=== PATIENT | male | born 1940 | race Caucasian/White ===

== ENCOUNTER 2017-02-24 07:35 | Day surgery (SDC) | payer OTHER, MEDICARE ==
--- NOTE | 2017-02-22 08:02 | HP ---
DATE OF ADMISSION: 02/24/2017 HISTORY OF PRESENT ILLNESS: This is the first orthopedic outpatient admission for surgery for this 76-year- old male, who has a chronic bursitis of the right elbow and pain, and spur formation of the olecranon. The patient was seen through the orthopedic clinic on 02/21/2017 evaluated, found to have swelling and problems, and the patient is being scheduled now for a right elbow bursectomy and removal of bone spurs. The procedure has been outlined to him. He understands the risks and complications involved with it and has consented to the surgery. The patient will need a preoperative medical evaluation prior to surgery. ALLERGIES: No known drug allergies. CURRENT MEDICATIONS: The patient currently is on multiple medications and they include hydrocortisone 10 mg, gemfibrozil, amlodipine, K-Dur 20, hydrochlorothiazide, losartan, Synthroid, low-dose aspirin, Bystolic, ranitidine, Crestor, Nitrostat, lisinopril, vitamin D3, CoQ10, tramadol for pain, and Tylenol No.3. PAST MEDICAL HISTORY: The patient has chronic heart problems. He has had a history of high blood pressure. He also has a deficiency of the pituitary gland. 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 Bleeding history is negative. Blood clot history is negative. PAST SURGICAL HISTORY: Positive, he has had previous upper arm surgery with local anesthesia, no complications. He also notes other surgical procedures and has had no anesthesia complications. SOCIAL HISTORY: Tobacco is a nonsmoker. Alcohol nondrinker. PHYSICAL EXAMINATION: GENERAL: Today, reveals a well-developed, well-nourished 76-year-old male, in moderate distress. HEENT: Normocephalic. NECK: Supple. CHEST: Clear. COR: Regular rate. ABDOMEN: Soft. : Intact. EXTREMITIES: Examination of right elbow reveals a significant swelling of the right elbow bursa with positive bone spur palpation on the olecranon area. ASSESSMENT: Chronic bursitis right elbow with spur formation. PLAN: For the patient to undergo excision of right elbow olecranon bursa. MMODAL /[id number]
[~2017-02-24 07:35] MED LIST: Lactated Ringers 1,000 ML IV SCH; Lidocaine 1%/Sod Bicarbonate in NS 8.4% 1 ML Syringe IV PRN; Propofol 200 MG/20 ML SDV ONE; Sodium Chloride 0.9% 10 ML Syringe FLUSH PRN; fentaNYL 100 MCG/2 ML SDV ONE
[2017-02-24] MEDS ORDERED: Iodine/Sodium Iodide 2% Tincture 30 ML Bottle ONE (08:12)
--- NOTE | 2017-02-24 08:16 | PCM.PREANE ---
Preanesthetic Assessment - Procedure Proposed Procedure: Excision of right olecranon bursa and AIP - Anesthesia/Transfusion/Family Hx Anesthesia History: Prior Anesthesia Without Reaction Type of Anesthesia Reaction: Unknown Other Type of Anesthesia Reaction Comment: muscle irritability Family History of Anesthesia Reaction: No Transfusion History: Prior Transfusion Without Reaction Intubation History: Unknown - Review of Systems General: No Symptoms Pulmonary: No Symptoms Cardiovascular: No Symptoms Gastrointestinal: No symptoms Neurological: No Symptoms Other: Reports: None, Thyroid Problems (pt states he has no glandular functions due to his missing pituitary gland) - Physical Assessment NPO Status Date: 02/23/17 NPO Status Time: 21:00 Pulse: 62 O2 Sat by Pulse Oximetry: 96 Respiratory Rate: 18 Blood Pressure: 154/80 Temperature: 36.5 C Height: 1.78 m Weight: 105.143 kg ASA Class: 3 Mental Status: Alert & Oriented x3 Airway Class: Mallampati = 1 Dentition: Reports: Normal Dentition Thyro-Mental Finger Breadths: 3 Mouth Opening Finger Breadths: 3 ROM/Head Extension: Full Lungs: Clear to auscultation, Normal respiratory effort Cardiovascular: Regular Rate, Regular Rhythm - Allergies Allergies/Adverse Reactions: Allergies Allergy/AdvReac Type Severity Reaction Status Date / Time clopidogrel bisulfate AdvReac GI Verified 02/24/17 08:33 [From Plavix] bleeding if on for a long period of time zolpidem tartrate AdvReac "mess me Verified 02/24/17 08:33 [From Ambien] up mentally" - Blood Blood Available: No Product(s) Available: None - Anesthesia Plan Pre-Op Medication Ordered: None - Acknowledgements Anesthesia Type Planned: General Anesthesia (An extensive conversation with the patient was held and he wished for a general anesthetic with local infiltration at the end of the procedure. He was advised from devyn Ingram at [facility] not not have a peripheral nerve block to his left arm for his bursa procedure. He was advised that given his heart/vasuclar history that he is at higher risk for cardiovascular complication with a general anesthetic. Patient/ spouse understands and still wishe to procede with the procedure. ) Pt an Appropriate Candidate for the Planned Anesthesia: Yes Alternatives and Risks of Anesthesia Discussed w Pt/Guardian: Yes Pt/Guardian Understands and Agrees with Anesthesia Plan: Yes PreAnesthesia Questionnaire HEENT History: Reports: Impaired Vision Other HEENT History: tinnitus, wears glasses Cardiovascular History: Reports: CAD, Heart Failure, High Cholesterol, Hypertension, [place], PVD, Stents (renal), Other (See Below) Other Cardiovascular History: [place] x 2, Left carotidendartectomy, Right carotid completely blocked Respiratory History: Reports: None Other Gastrointestinal History: "stomach ulcers from too much aspirin or plavix " Other Genitourinary History: Prostate cancer, renal stenosis - elevated Bun/Cr , 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 Hematologic History: Reports: None Immunologic History: Reports: None Oncologic (Cancer) History: Reports: Prostate Other Oncologic History: pituitary Other Dermatologic History: thin skin with frequent skin tears - Past Surgical History HEENT Surgical History: Reports: Cataract Surgery, Naso-Sinus Surgery Other HEENT Surgeries/Procedures: Bilateral eye lens implant Cardiovascular Surgical History: Reports: Carotid Endarterectomy, Coronary Artery Bypass Other Cardiovascular Surgeries/Procedures: 4 vessel bypass--patient states sternal wires have since been removed GI Surgical History: Reports: Colonoscopy Male Surgical History: Reports: Prostate Biopsy Other Male Surgeries/Procedures: Rt kidney renal stent Endocrine Surgical History: Reports: Thyroidectomy Other Endocrine Surgeries/Procedures: Removal of the pituitary Neurological Surgical History: Reports: Laminectomy Other Neurological Surgeries/Procedures: X 3 Other Musculoskeletal Surgeries/Procedures:: Bilateral ankle and elbow surgery, laminectomy x 3, upper knuckle of right thumb lost in construction accident - SUBSTANCE USE Smoking Status *Q: Former Smoker Tobacco Use Within Last Twelve Months: No Second Hand Smoke Exposure: No Recreational Drug Use History: No - HOME MEDS Home Medications: Home Meds Acetaminophen/Codeine [Tylenol with Codeine No.3 300MG/30MG] 1 tab PO BID PRN [History] Cholecalciferol (Vitamin D3) [Vitamin D3] 1,000 unit PO DAILY 08/15/15 [History] Gemfibrozil [Lopid] 300 mg PO BIDAC 08/15/15 [History] Hydrocortisone [Cortef] 20 mg PO BID 08/15/15 [History] Isosorbide Mononitrate [Isosorbide Mononitrate ER] 30 mg PO BID 08/15/15 [ History] Levothyroxine Sodium [Synthroid] 175 mcg PO ACBREAKFAST 08/15/15 [History] Magnesium Oxide 0.5 tab PO QPM 08/15/15 [History] Nitroglycerin [Nitrostat] 1 tab SL ASDIRECTED PRN 08/15/15 [History] Rosuvastatin [Crestor] 40 mg PO DAILY 08/15/15 [History] Ubidecarenone [Co Q-10] 100 mg PO DAILY 08/15/15 [History] Amoxicillin 2,000 mg PO ASDIRECTED PRN 02/23/17 [History] Aspirin [Halfprin] 81 mg PO DAILY 02/23/17 [History] Lisinopril 5 mg PO DAILY 02/23/17 [History] Losartan/Hydrochlorothiazide [Losartan-HCTZ 50-12.5 MG] 0.5 tab PO DAILY [History] Potassium Chloride [K-Tab ER] 10 meq PO DAILY 02/23/17 [History] Vitamin E 400 unit PO DAILY 02/23/17 [History] amLODIPine/atorvaSTATin [Amlodipine-Atorvast 10-10 mg] 0.5 tab PO DAILY [History] traMADol [Ultram] 50 mg PO Q12HR PRN 02/23/17 [History] Nebivolol [Bystolic] 0.5 mg PO DAILY 02/24/17 [History] Omeprazole 20 mg PO DAILY 02/24/17 [History] - CURRENT (IN HOUSE) MEDS Current Meds: Current Medications Lactated Ringer's (Ringers, Lactated) 1,000 mls @ 125 mls/hr IV ASDIRECTED ANUP Lidocaine/Sodium Bicarbonate (Buffered Lidocaine 1% In Ns 8.4%) 0.25 ml IV ONETIME PRN PRN Reason: Prior to IV Start Sodium Chloride (Saline Flush) 10 ml FLUSH ASDIRECTED PRN PRN Reason: Keep Vein Open Discontinued Medications Fentanyl (Sublimaze) Confirm Administered Dose 100 mcg .ROUTE .STK-MED ONE Stop: 02/24/17 06:49 Propofol (Diprivan 20 Ml) Confirm Administered Dose 200 mg .ROUTE .STK-MED ONE Stop: 02/24/17 06:48
[2017-02-24] MEDS ORDERED: Lidocaine 1% 4 ML ONE (08:26)
[2017-02-24] MEDS ORDERED: fentaNYL 250 MCG/5 ML SDV ONE (08:26)
[2017-02-24] MEDS ORDERED: Propofol 200 MG/20 ML SDV ONE (08:26)
[2017-02-24] MEDS ORDERED: Ondansetron 4 MG/2 ML SDV ONE (08:26)
[2017-02-24] MEDS ORDERED: Rocuronium 50 MG/5 ML Vial ONE (08:26)
[2017-02-24] MEDS ORDERED: Hydrocortisone Sodium Succinate 100 MG/2 ML SDV ONE (08:54)
[2017-02-24] MEDS ORDERED: Ketorolac 15 MG/ML SDV IVPUSH PRN (08:59)
[2017-02-24] MEDS ORDERED: Acetaminophen/Codeine 300-30 MG Tab PO PRN (08:59)
[2017-02-24] MEDS ORDERED: ePHEDrine/Normal Saline 25 MG/5 ML Syringe ONE ×2 (09:16→10:51)
[2017-02-24] MEDS ORDERED: Ondansetron 4 MG/2 ML SDV IVPUSH PRN (11:04)
[2017-02-24] MEDS ORDERED: diphenhydrAMINE 50 MG/ML SDV IVPUSH PRN (11:04)
[2017-02-24] MEDS ORDERED: fentaNYL 100 MCG/2 ML SDV IVPUSH PRN (11:04)
--- NOTE | 2017-02-24 11:07 | PCM.POSTAN ---
POST ANESTHESIA ASSESSMENT - MENTAL STATUS Mental Status: alert, oriented - VITAL SIGNS Pulse Rate: 68 SaO2: 93 Resp Rate: 14 Blood Pressure: 128/56 Temperature: 36.9 C - RESPIRATORY Respiratory Status: respiratory rate WNL, airway patent, O2 saturation stable - CARDIOVASCULAR CV Status: pulse rate WNL, blood pressure stable - GASTROINTESTINAL GI Status: no symptoms - PAIN Pain Score: 0 - POST OP HYDRATION Hydration Status: adequate & stable
[2017-02-24] MEDS ORDERED: Meperidine PF 50 MG/ML Syringe IVPUSH PRN (12:00)
--- NOTE | 2017-02-24 12:51 | PCM48HPAN ---
Post Anesthesia Note - EVALUATION WITHIN 48HRS OF ANESTHETIC Vital Signs in Normal Range: Yes Patient Participated in Evaluation: Yes Respiratory Function Stable: Yes Airway Patent: Yes Cardiovascular Function Stable: Yes Hydration Status Stable: Yes Pain Control Satisfactory: Yes Nausea and Vomiting Control Satisfactory: Yes Mental Status Recovered: Yes
[2017-02-24 13:01] VITALS: BP 118/58
--- NOTE | 2017-02-25 07:23 | OR ---
DATE OF OPERATION: 02/24/2017 SURGEON: Az Leong MD PREOPERATIVE DIAGNOSIS: Right elbow chronic bursitis with loose bone fragments. POSTOPERATIVE DIAGNOSIS: Right elbow chronic bursitis with loose bone fragments with olecranon exostosis formation. ANESTHESIA: General. OPERATION PERFORMED: 1. Excision of chronic bursa formation, right elbow olecranon. 2. Removal of exostosis formation, right olecranon. DESCRIPTION OF PROCEDURE: The patient was taken to the operative room in supine position. He was placed under general anesthesia. The right arm and elbow were then prepped and draped by standard technique and after prepping and draping, the operation proceeded with a midline incision being placed over the central portion of the olecranon extending distally and proximally. The bursal swelling and fluid was to the size of approximately a baseball type size. Once the incision was made, the fluid did come through the incisional area and was decompressed from the bursa itself. Once the fluid was out, the operation proceeded with sharp dissection of the bursa from the subcutaneous tissues all around and then down to the fascial tissues and off the olecranon process area. Once the bursectomy was completed, palpation of the olecranon found ulnarly type exostosis formation over the olecranon area. Using an osteotome, approximately an 8-inch to a 0.25 Inch of bone was removed to smooth the area. This was palpated and again was re- smoothed. There was one loose bone fragment off to the side that was a little deeper in the soft tissues to the medial side of the olecranon, which was excised. Once the palpation found a nice smooth olecranon area, operation proceeded with closure of the space with 3-0 Vicryl and then the skin was then closed with interrupted 3-0 Prolene and vertical mattress sutures. The wound closed very nicely. The operation proceeded with a very bulky type dressing be applied to the olecranon area and then a long arm splint was applied. The patient tolerated the procedure well. He left the operating room in stable condition to his room for recovery. ESTIMATED BLOOD LOSS: MMODAL /[id number]
== END 2017-02-24 12:35 | disposition home or self-care (01) ==
LOC: JD.SDS 07:35
PROVIDERS: ATTEND Specialist
DX: M70.31 Other bursitis of elbow, right elbow (principal); M77.9 Enthesopathy, unspecified; I73.9 Peripheral vascular disease, unspecified; I10 Essential (primary) hypertension; E78.5 Hyperlipidemia, unspecified; I25.10 Atherosclerotic heart disease of native coronary artery without angina pectoris; E78.00 Pure hypercholesterolemia, unspecified; E23.0 Hypopituitarism; I25.2 Old myocardial infarction; I50.9 Heart failure, unspecified; I11.0 Hypertensive heart disease with heart failure; K25.9 Gastric ulcer, unspecified as acute or chronic, without hemorrhage or perforation; Z79.899 Other long term (current) drug therapy; Z79.82 Long term (current) use of aspirin; Z86.69 Personal history of other diseases of the nervous system and sense organs; Z85.46 Personal history of malignant neoplasm of prostate; Z95.1 Presence of aortocoronary bypass graft; Z98.890 Other specified postprocedural states
CPT/HCPCS: 24105; A9270; J1720; J1885; J2405; J3010; J7050; J7120; 01710; J2704

== ENCOUNTER 2019-07-16 09:05 | Inpatient (IN) | payer OTHER, MEDICARE ==
[~2019-07-16 09:05] MED LIST changes: +Acetaminophen 325 MG Tab PO SCH; +Lactated Ringers 0 ML ONE; +Lidocaine 1%/Sod Bicarbonate in NS 8.4% 1 ML Syringe IDERM PRN; -Lidocaine 1%/Sod Bicarbonate in NS 8.4% 1 ML Syringe IV PRN; +Midazolam 1 MG/ML 2 ML SDV ONE; +Ondansetron 4 MG/2 ML SDV ONE; +Pregabalin 25 MG Cap PO SCH; +Ropivacaine 0.5% 5 MG/ML 30 ML SDV ONE; +oxyCODONE ER 10 MG TAB.ER PO SCH
[2019-07-16] MEDS ORDERED: Midazolam 1 MG/ML 2 ML SDV ONE ×2 (10:18→10:59)
[2019-07-16] MEDS ORDERED: Propofol 200 MG/20 ML SDV ONE (10:18)
[2019-07-16] MEDS ORDERED: Hydrocortisone Sodium Succinate 100 MG/2 ML SDV ONE (10:22)
[2019-07-16] MEDS ORDERED: ceFAZolin 1 GM Vial ONE ×2 (10:37→13:13)
[2019-07-16] MEDS ORDERED: Phenylephrine/Normal Saline 100 MCG/ML 10 ML Syringe ONE (10:46)
[2019-07-16] MEDS ORDERED: Ketamine 500 mg/10 ML MDV ONE (10:53)
[2019-07-16] MEDS: ceFAZolin 1 GM Vial ONE ×2 (11:01→11:31)
[2019-07-16] MEDS ORDERED: ePHEDrine/Normal Saline 25 MG/5 ML Syringe ONE (11:17)
[2019-07-16] MEDS ORDERED: Sodium Chloride 0.9% 100 ML ONE (11:17)
[2019-07-16] MEDS ORDERED: Phenylephrine 1% 10 MG/ML SDV ONE (11:17)
--- NOTE | 2019-07-16 11:23 | PCM.PREANE ---
Preanesthetic Assessment - Anesthesia/Transfusion/Family Hx Anesthesia History: Prior Anesthesia Without Reaction Other Type of Anesthesia Reaction Comment: muscle irritability Family History of Anesthesia Reaction: No Transfusion History: Prior Transfusion Without Reaction Intubation History: Unknown - Review of Systems General: No Symptoms Pulmonary: No Symptoms Cardiovascular: Dyspnea on Exertion (>4 MET capacity, SOB with walking up hill about 100 yards. ) Gastrointestinal: No Symptoms Neurological: No Symptoms - Physical Assessment NPO Status Date: 07/15/19 NPO Status Time: 19:00 Vital Signs: Last Vital Signs Temp 36.1 C 07/16/19 09:20 Pulse 73 07/16/19 09:20 Resp 20 07/16/19 09:20 BP 141/88 H 07/16/19 09:20 Pulse Ox 94 L 07/16/19 09:20 Height: 1.75 m Weight: 89.811 kg ASA Class: 3 Mental Status: Alert & Oriented x3 Airway Class: Mallampati = 1 Dentition: Reports: Broken Tooth/Teeth, Missing Tooth/Teeth Thyro-Mental Finger Breadths: 3 Mouth Opening Finger Breadths: 3 ROM/Head Extension: Full Lungs: Clear to Auscultation, Normal Respiratory Effort, Decreased Breath Sounds Cardiovascular: Regular Rate, Regular Rhythm - Lab Values: Laboratory Last Values MRSA (PCR) Negative 07/09/19 14:45 - Allergies Allergies/Adverse Reactions: Allergies Allergy/AdvReac Type Severity Reaction Status Date / Time atorvastatin Allergy intolerance Verified 07/15/19 18:06 Iodinated Contrast Media Allergy Other Verified 07/15/19 18:06 methylprednisolone Allergy Other Verified 07/15/19 18:06 pravastatin Allergy intolderanc Verified 07/15/19 18:06 e aspirin AdvReac gi bleed Verified 07/16/19 08:23 clopidogrel bisulfate AdvReac GI Verified 07/15/19 18:05 [From Plavix] bleeding if on for a long period of time warfarin [From Coumadin] AdvReac GI bleed Verified 07/16/19 08:23 zolpidem tartrate AdvReac "mess me Verified 07/15/19 18:05 [From Ambien] up mentally" - Acknowledgements Anesthesia Type Planned: Spinal Pt an Appropriate Candidate for the Planned Anesthesia: Yes Alternatives and Risks of Anesthesia Discussed w Pt/Guardian: Yes Pt/Guardian Understands and Agrees with Anesthesia Plan: Yes Additional Comments: Mr. Perez has chronic steroid use related to the removal of his pituitary gland in 1988. He manages his Cushings with PO cortef. He has an allergy to methylprednisone documented. He has received Solu-Cortef for surgery in the past and has done fine with surgery. PreAnesthesia Questionnaire HEENT History: Reports: Impaired Vision Other HEENT History: tinnitus, wears glasses Cardiovascular History: Reports: CAD, Heart Failure, High Cholesterol, Hypertension, [place], PVD, SOB on Exertion, Stents, Other (See Below) Other Cardiovascular History: [place] x 2, Left carotidendartectomy, Right carotid completely blocked Respiratory History: Reports: None Gastrointestinal History: Reports: Colon Polyp, GERD, GI Bleed Other Gastrointestinal History: frank's esophagus, GI ulcers Genitourinary History: Reports: Renal Disease Other Genitourinary History: Prostate cancer, renal stenosis - elevated BUN/CRE , CKD III, renal artery stenosis with stent placement, cystoscopy 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 Musculoskeletal History: Reports: Osteoarthritis Other Musculoskeletal History: Left knee pain, right knee pain, bilateral shoulder pain - multiple back problems with lami X 2 Neurological History: Reports: None Psychiatric History: Reports: Depression Other Endocrine/Metabolic History: panhypopituitarism, 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, 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, cushings disease, pituatary adenoma Hematologic History: Reports: None Immunologic History: Reports: None Oncologic (Cancer) History: Reports: Prostate Other Oncologic History: pituitary Other Dermatologic History: thin skin with frequent skin tears, excision of lipoma, actinic keratosis - Past Surgical History HEENT Surgical History: Reports: Cataract Surgery, Naso-Sinus Surgery Other HEENT Surgeries/Procedures: Bilateral eye lens implant Cardiovascular Surgical History: Reports: Carotid Endarterectomy, Coronary Artery Bypass Other Cardiovascular Surgeries/Procedures: 4 vessel bypass--patient states sternal wires have since been removed Respiratory Surgical History: Reports: None GI Surgical History: Reports: Colonoscopy, EGD, Hernia Repair/Other Male Surgical History: Reports: Prostate Biopsy Other Male Surgeries/Procedures: Rt kidney renal stent Endocrine Surgical History: Reports: Pituitary Tumor Resection, Thyroidectomy Other Endocrine Surgeries/Procedures: Removal of the pituitary Neurological Surgical History: Reports: Laminectomy Other Neurological Surgeries/Procedures: L2L3 lumbar discectomy Other Musculoskeletal Surgeries/Procedures:: Bilateral ankle and elbow surgery, laminectomy x 3, upper knuckle of right thumb lost in construction accident, foot surgery, left knee bursectomy, deltoid tumor removal Oncologic Surgical History: Reports: None Dermatological Surgical History: Reports: None - SUBSTANCE USE Smoking Status *Q: Never Smoker Second Hand Smoke Exposure: No Recreational Drug Use History: No - HOME MEDS Home Medications: Home Meds Gemfibrozil [Lopid] 300 mg PO BID 08/15/15 [History] Isosorbide Mononitrate [Isosorbide Mononitrate ER] 30 mg PO BID 08/15/15 [ History] Levothyroxine Sodium [Synthroid] 175 mcg PO ACBREAKFAST 08/15/15 [History] Nitroglycerin [Nitrostat] 1 tab SL ASDIRECTED PRN 08/15/15 [History] Rosuvastatin [Crestor] 40 mg PO BEDTIME 08/15/15 [History] Ubidecarenone [Co Q-10] 100 mg PO DAILY 08/15/15 [History] Amoxicillin 2,000 mg PO ASDIRECTED PRN 02/23/17 [History] Aspirin [Halfprin] 81 mg PO DAILY 02/23/17 [History] Omeprazole 40 mg PO BID 02/24/17 [History] Acetaminophen with Codeine [Tylenol with Codeine #3 Tablet] 1 - 2 tab PO Q4H PRN 07/15/19 [History] Ezetimibe [Zetia] 10 mg PO BEDTIME 07/15/19 [History] Hydrocortisone [Cortef] 10 mg PO BEDTIME PRN 07/15/19 [History] Lisinopril 5 mg PO DAILY 07/15/19 [History] amLODIPine [Norvasc] 5 mg PO DAILY 07/15/19 [History] Cholecalciferol (Vitamin D3) [Vitamin D3] 5,000 unit PO DAILY 07/16/19 [History] Hydrocortisone [Cortef] 20 mg PO 1430 07/16/19 [History] Hydrocortisone [Cortef] 20 mg PO QAM 07/16/19 [History] Iron 65 mg PO BEDTIME 07/16/19 [History] Magnesium 250 mg PO BEDTIME 07/16/19 [History] Ranitidine [Zantac] 150 mg PO BID 07/16/19 [History] hydroCHLOROthiazide [Hydrochlorothiazide] 25 mg PO BEDTIME 07/16/19 [History] - CURRENT (IN HOUSE) MEDS Current Meds: Current Medications Acetaminophen (Tylenol) 975 mg PO ONETIME [facility] Stop: 07/16/19 12:00 Last Admin: 07/16/19 09:42 Dose: 975 mg Acetaminophen/Codeine Phosphate (Tylenol With Codeine No.3 300mg/30mg) 1 - 2 tab PO Q4H PRN PRN Reason: Pain Bisacodyl (Dulcolax) 5 mg PO DAILY PRN PRN Reason: Constipation Morphine Sulfate 8 mg/Epinephrine HCl 0.3 mg/Cefuroxime Sodium 750 mg/Ketorolac Tromethamine 30 mg/Sodium Chloride 27.9 ml 0 mg .XX ONETIME ONE Stop: 07/16/19 11:31 Cyclobenzaprine HCl (Flexeril) 5 mg PO BID PRN PRN Reason: Spasms Docusate Sodium (Colace) 100 mg PO BID ANUP Famotidine (Pepcid) 20 mg PO Q12H [facility] Lactated Ringer's (Ringers, Lactated) 1,000 mls @ 125 mls/hr IV ASDIRECTED [facility] Stop: 07/16/19 23:00 Last Admin: 07/16/19 09:35 Dose: 125 mls/hr Cefazolin Sodium/Dextrose 2 gm (/ Premix) 50 mls @ 100 mls/hr IV Q8H [facility] Stop: 07/16/19 23:59 Ketorolac Tromethamine (Toradol) 15 mg IVPUSH Q6H PRN PRN Reason: Pain Lidocaine/Sodium Bicarbonate (Buffered Lidocaine 1% In Ns 8.4%) 0.25 ml IDERM ONETIME PRN PRN Reason: Prior to IV Start Stop: 07/16/19 18:00 Last Admin: 07/16/19 09:35 Dose: 0.25 ml Magnesium Hydroxide (Milk Of Magnesia) 30 ml PO BID PRN PRN Reason: Constipation Morphine Sulfate (Morphine) 2 mg IVPUSH Q2H PRN PRN Reason: Breakthrough Pain Naloxone HCl (Narcan) 0.1 mg IVPUSH Q5M PRN PRN Reason: Oversedation Ondansetron HCl (Zofran) 4 mg IVPUSH Q6H PRN PRN Reason: Nausea/Vomiting Oxycodone HCl (Oxycontin) 10 mg PO ONETIME [facility] Stop: 07/16/19 12:00 Last Admin: 07/16/19 09:42 Dose: 10 mg Pregabalin (Lyrica) 50 mg PO ONETIME [facility] Stop: 07/16/19 12:00 Last Admin: 07/16/19 09:42 Dose: 50 mg Rivaroxaban (Xarelto) 10 mg PO DAILY [facility] Senna (Senna) 8.6 mg PO BID PRN PRN Reason: Constipation Sodium Chloride (Saline Flush) 10 ml FLUSH ASDIRECTED PRN PRN Reason: Keep Vein Open Stop: 07/16/19 18:00 Discontinued Medications Cefazolin Sodium (Ancef) Confirm Administered Dose 2 gm .ROUTE .STK-MED ONE Stop: 07/16/19 08:40 Last Admin: 07/16/19 11:01 Dose: 2 gm Cefazolin Sodium (Ancef) Confirm Administered Dose 2 gm .ROUTE .STK-MED ONE Stop: 07/16/19 10:38 Fentanyl (Sublimaze) Confirm Administered Dose 100 mcg .ROUTE .STK-MED ONE Stop: 07/16/19 08:40 Hydrocortisone Sodium Succinate (Solu-Cortef) Confirm Administered Dose 100 mg .ROUTE .STK-MED ONE Stop: 07/16/19 10:23 Lactated Ringer's (Ringers, Lactated) Confirm Administered Dose 1,000 mls @ as directed .ROUTE .STK-MED ONE Stop: 07/16/19 08:52 Ketamine HCl (Ketalar) Confirm Administered Dose 500 mg .ROUTE .STK-MED ONE Stop: 07/16/19 10:54 Midazolam HCl (Versed 1 Mg/Ml) Confirm Administered Dose 2 mg .ROUTE .STK-MED ONE Stop: 07/16/19 08:41 Midazolam HCl (Versed 1 Mg/Ml) Confirm Administered Dose 2 mg .ROUTE .STK-MED ONE Stop: 07/16/19 10:19 Midazolam HCl (Versed 1 Mg/Ml) Confirm Administered Dose 2 mg .ROUTE .STK-MED ONE Stop: 07/16/19 11:00 Ondansetron HCl (Zofran) Confirm Administered Dose 4 mg .ROUTE .STK-MED ONE Stop: 07/16/19 08:40 Phenylephrine HCl (Phenylephrine In Ns 100 Mcg/Ml) Confirm Administered Dose 1 mg .ROUTE .STK-MED ONE Stop: 07/16/19 10:47 Propofol (Diprivan 20 Ml) Confirm Administered Dose 600 mg .ROUTE .STK-MED ONE Stop: 07/16/19 08:40 Propofol (Diprivan 20 Ml) Confirm Administered Dose 600 mg .ROUTE .STK-MED ONE Stop: 07/16/19 10:19 Ropivacaine (Naropin 0.5%) Confirm Administered Dose 30 ml .ROUTE .STK-MED ONE Stop: 07/16/19 07:35
[2019-07-16] MEDS ORDERED: fentaNYL 100 MCG/2 ML SDV IVPUSH PRN (11:31)
[2019-07-16] MEDS ORDERED: HYDROmorphone 0.5 MG/0.5 ML Syringe IVPUSH PRN (11:31)
[2019-07-16] MEDS ORDERED: Ondansetron 4 MG/2 ML SDV IVPUSH PRN ×2 (11:31→13:00)
[2019-07-16] MEDS: Morphine 8 MG, EPINEPHrine 0.3 MG, Cefuroxime 750 MG, Ketorolac 30 MG, Sodium Chloride ... ONE ×10 (11:36→19:52)
[2019-07-16] MEDS: Vancomycin 1 GM SDV ONE ×2 (11:39→13:21)
[2019-07-16] MEDS ORDERED: fentaNYL 100 MCG/2 ML SDV ONE (11:52)
[2019-07-16] MEDS ORDERED: Lactated Ringers 1,000 ML ONE ×2 (11:59)
--- NOTE | 2019-07-16 12:43 | PCM.POSTAN ---
POST ANESTHESIA ASSESSMENT - MENTAL STATUS Mental Status: Alert, Oriented - VITAL SIGNS Vital Signs: Last Vital Signs 1212 120/46 85 14 97.9F 97% - RESPIRATORY Respiratory Status: Respiratory Rate WNL, Airway Patent, O2 Saturation Stable - CARDIOVASCULAR CV Status: Pulse Rate WNL, Blood Pressure Stable - GASTROINTESTINAL GI Status: No Symptoms - PAIN Pain Score: 0 - POST OP HYDRATION Hydration Status: Adequate & Stable
[2019-07-16] MEDS ORDERED: Magnesium Hydroxide 400 MG/5 ML Susp 30 ML Cup PO PRN (13:00)
[2019-07-16] MEDS ORDERED: AMOXICILLIN 2000 MG PO PRN (13:00)
[2019-07-16] MEDS ORDERED: Bisacodyl 5 MG Tab PO PRN (13:00)
[2019-07-16] MEDS ORDERED: Naloxone 0.4 MG/ML SDV IVPUSH PRN (13:00)
[2019-07-16] MEDS ORDERED: Morphine 2 MG/ML Syringe IVPUSH PRN (13:00)
[2019-07-16] MEDS ORDERED: Nitroglycerin 0.4 MG Tab.SL SL PRN (13:00)
[2019-07-16] MEDS ORDERED: Sennosides 8.6 MG Tab PO PRN (13:00)
[2019-07-16] MEDS ORDERED: Hydrocortisone 20 MG Tab PO PRN (13:00)
[2019-07-16] MEDS ORDERED: Bupivacaine 0.25% 10 ML SDV ONE (13:13)
[2019-07-16] MEDS ORDERED: Iodine/Sodium Iodide 2% Tincture 30 ML Bottle ONE (13:13)
--- NOTE | 2019-07-16 13:25 | CR ---
Left knee: AP and lateral views left knee were obtained. Comparison: No prior knee exam. Knee prosthesis is seen. Components are aligned. Extensive vascular calcification is noted. Soft tissue air is noted from the surgical procedure. No acute bony abnormality is seen. Impression: 1. Satisfactory postop radiographic appearance of recently placed left knee prosthesis. 2. Extensive vascular calcification. Diagnostic code #2
[2019-07-16] MEDS: Hydrocortisone 20 MG Tab PO SCH (14:50)
[2019-07-16] MEDS ORDERED: Ketorolac 15 MG/ML SDV IVPUSH PRN (15:00)
[2019-07-16] MEDS: Acetaminophen/Codeine 300-30 MG Tab PO PRN ×2 (16:32→21:16)
[2019-07-16] MEDS: Docusate Sodium 100 MG Cap PO SCH (18:18)
[2019-07-16] MEDS: Famotidine 20 MG Tab PO SCH (18:18)
[2019-07-16] MEDS: amLODIPine 5 MG Tab PO SCH ×2 (18:19→18:34)
[2019-07-16] MEDS: Ezetimibe 10 MG Tab PO SCH ×2 (18:20→18:22)
[2019-07-16] MEDS: Isosorbide Mononitrate 30 MG Tab.ER PO SCH (18:21)
[2019-07-16] MEDS: Pantoprazole 40 MG Tab.CR PO SCH (18:32)
[2019-07-16] MEDS ORDERED: Magnesium Oxide 400 MG Tab PO SCH (19:00)
[2019-07-16] MEDS ORDERED: Hydrochlorothiazide 25 MG Tab PO SCH (19:00)
[2019-07-16] MEDS ORDERED: Rosuvastatin 10 MG Tab PO SCH (19:00)
[2019-07-16] MEDS ORDERED: Iron Polysaccharides Complex 150 MG Cap PO SCH (19:00)
[2019-07-16] MEDS: Cyclobenzaprine 10 MG Tab PO PRN (20:15)
[2019-07-16] MEDS: Gemfibrozil 600 MG Tab PO SCH (20:16)
[2019-07-16] MEDS: ceFAZolin 2 GM in Premix Bag 1 BAG IV SCH (20:16)
[2019-07-16] MEDS ORDERED: Non-Formulary Medication 1 Each (Ranitidine 150 MG) PO SCH (21:00)
[2019-07-17] MEDS: Acetaminophen/Codeine 300-30 MG Tab PO PRN ×3 (01:24→13:32)
[2019-07-17] MEDS: ceFAZolin 2 GM in Premix Bag 1 BAG IV SCH ×2 (05:25→12:46)
[2019-07-17] MEDS: Docusate Sodium 100 MG Cap PO SCH (06:57)
[2019-07-17] MEDS: amLODIPine 5 MG Tab PO SCH (06:57)
[2019-07-17] MEDS ORDERED: Cholecalciferol (Vitamin D3) 5,000 UNIT Tab PO SCH (07:00)
[2019-07-17] MEDS ORDERED: Aspirin 81 MG Tab.EC PO SCH (07:00)
[2019-07-17] MEDS ORDERED: Lisinopril 5 MG Tab PO SCH (07:00)
[2019-07-17] MEDS: Isosorbide Mononitrate 30 MG Tab.ER PO SCH (07:00)
[2019-07-17] MEDS: Pantoprazole 40 MG Tab.CR PO SCH (07:00)
[2019-07-17] MEDS: Famotidine 20 MG Tab PO SCH (07:00)
[2019-07-17] MEDS ORDERED: Hydrocortisone 20 MG Tab PO SCH (07:00)
--- NOTE | 2019-07-17 08:25 | PCM.SURGPN ---
- General Info Date of Service: 07/17/19 POD#: 1 Functional Status: Reports: Pain Controlled, Tolerating Diet, Ambulating, Urinating, Incentive Spirometry, Other (Pt states he walked more than 500 feet yesterday and that he did well with OT today.) - Patient Data Vitals - Most Recent: Last Vital Signs Temp 97.5 F 07/17/19 03:33 Pulse 67 07/17/19 06:59 Resp 14 07/17/19 03:33 BP 103/57 L 07/17/19 07:00 Pulse Ox 93 L 07/17/19 06:59 Weight - Most Recent: 209 lb I&O - Last 24 Hours: Intake & Output 07/16/19 07/17/19 07/17/19 22:59 06:59 14:59 Intake Total 600 1250 Output Total 300 800 Balance 300 450 Lab Results Last 24 Hrs: Laboratory Results - last 24 hr 07/17/19 07/17/19 Range/Units 05:30 05:30 WBC 8.89 (4.23-9.07) K/mm3 RBC 3.27 L (4.63-6.08) M/mm3 Hgb 10.7 L D (13.7-17.5) gm/dl Hct 32.0 L (40.1-51.0) % MCV 97.9 H (79.0-92.2) fl MCH 32.7 H (25.7-32.2) pg MCHC 33.4 (32.2-35.5) g/dl RDW Std Deviation 42.9 (35.1-43.9) fL Plt Count 182 (163-337) K/mm3 MPV 10.3 (9.4-12.3) fl Sodium 136 (136-145) mEq/L Potassium 3.9 (3.5-5.1) mEq/L Chloride 101 (98-107) mEq/L Carbon Dioxide 28 (21-32) mEq/L Anion Gap 10.9 (5-15) BUN 28 H (7-18) mg/dL Creatinine 1.5 H (0.7-1.3) mg/dL Est Cr Clr Drug Dosing 39.93 mL/min Estimated GFR (MDRD) 45 (>60) mL/min BUN/Creatinine Ratio 18.7 H (14-18) Glucose 91 (83-115) mg/dL Calcium 8.3 L (8.5-10.1) mg/dL Total Bilirubin 0.3 (0.2-1.0) mg/dL AST 20 (15-37) U/L ALT 17 (16-63) U/L Alkaline Phosphatase 55 (46-116) U/L Total Protein 5.4 L (6.4-8.2) g/dl Albumin 2.7 L (3.4-5.0) g/dl Globulin 2.7 gm/dL Albumin/Globulin Ratio 1.0 (1-2) Med Orders - Current: Current Medications Acetaminophen/Codeine Phosphate (Tylenol With Codeine No.3 300mg/30mg) 1 - 2 tab PO Q4H PRN PRN Reason: Pain Last Admin: 07/17/19 05:33 Dose: 2 tab Amlodipine Besylate (Norvasc) 5 mg PO BID@0700,1900 [facility] Last Admin: 07/17/19 06:57 Dose: 5 mg Aspirin (Halfprin) 81 mg PO DAILY@0700 [facility] Last Admin: 07/17/19 06:58 Dose: 81 mg Bisacodyl (Dulcolax) 5 mg PO DAILY PRN PRN Reason: Constipation Cholecalciferol (Vitamin D3) 5,000 unit PO DAILY@0700 [facility] Last Admin: 07/17/19 07:00 Dose: 5,000 unit Cyclobenzaprine HCl (Flexeril) 5 mg PO BID PRN PRN Reason: Spasms Last Admin: 07/16/19 20:15 Dose: 5 mg Docusate Sodium (Colace) 100 mg PO BID@0700,1900 [facility] Last Admin: 07/17/19 06:57 Dose: 100 mg Ezetimibe (Zetia) 10 mg PO BEDTIME@1900 [facility] Last Admin: 07/16/19 18:22 Dose: Not Given Famotidine (Pepcid) 20 mg PO Q12H [facility] Last Admin: 07/17/19 07:00 Dose: 20 mg Gemfibrozil (Lopid) 300 mg PO BID [facility] Last Admin: 07/16/19 20:16 Dose: 300 mg Hydrochlorothiazide (Hydrochlorothiazide) 25 mg PO BEDTIME@1900 [facility] Last Admin: 07/16/19 18:21 Dose: 25 mg Hydrocortisone (Cortef) 10 mg PO BEDTIME PRN PRN Reason: STRESS DOSE Hydrocortisone (Cortef) 20 mg PO 1430 [facility] Last Admin: 07/16/19 14:50 Dose: Not Given Hydrocortisone (Cortef) 20 mg PO DAILY@0700 [facility] Last Admin: 07/17/19 06:57 Dose: 20 mg Cefazolin Sodium/Dextrose 2 gm (/ Premix) 50 mls @ 100 mls/hr IV Q8H [facility] Stop: 07/17/19 13:29 Last Admin: 07/17/19 05:25 Dose: 100 mls/hr Isosorbide Mononitrate (Imdur) 30 mg PO BID@0700,1900 [facility] Last Admin: 07/17/19 07:00 Dose: 30 mg Levothyroxine Sodium (Levothyroxine) 175 mcg PO ACBREAKFAST [facility] Last Admin: 07/17/19 05:24 Dose: 175 mcg Lisinopril (Prinivil) 2.5 mg PO DAILY@0700 [facility] Last Admin: 07/17/19 06:58 Dose: 2.5 mg Magnesium Hydroxide (Milk Of Magnesia) 30 ml PO BID PRN PRN Reason: Constipation Magnesium Oxide (Magnesium Oxide) 200 mg PO BEDTIME@1900 [facility] Last Admin: 07/16/19 18:32 Dose: 200 mg Morphine Sulfate (Morphine) 2 mg IVPUSH Q2H PRN PRN Reason: Breakthrough Pain Naloxone HCl (Narcan) 0.1 mg IVPUSH Q5M PRN PRN Reason: Oversedation Nitroglycerin (Nitrostat) 0.4 mg SL ASDIRECTED PRN PRN Reason: Chest Pain Ondansetron HCl (Zofran) 4 mg IVPUSH Q6H PRN PRN Reason: Nausea/Vomiting Pantoprazole Sodium (Protonix) 40 mg PO BID@0700,1900 [facility] Last Admin: 07/17/19 07:00 Dose: 40 mg Polysaccharide Iron Complex (Ferrex 150) 150 mg PO BEDTIME@1900 [facility] Last Admin: 07/16/19 18:18 Dose: 150 mg Rivaroxaban (Xarelto) 10 mg PO DAILY [facility] Rosuvastatin Calcium (Crestor) 40 mg PO BEDTIME@1900 [facility] Last Admin: 07/16/19 18:31 Dose: 40 mg Senna (Senna) 8.6 mg PO BID PRN PRN Reason: Constipation Discontinued Medications Acetaminophen (Tylenol) 975 mg PO ONETIME [facility] Stop: 07/16/19 12:00 Last Admin: 07/16/19 09:42 Dose: 975 mg Bupivacaine HCl (Sensorcaine-Mpf 0.25%) Confirm Administered Dose 30 ml .ROUTE .STK-MED ONE Stop: 07/16/19 13:14 Last Admin: 07/16/19 11:37 Dose: 20 ml Cefazolin Sodium (Ancef) Confirm Administered Dose 2 gm .ROUTE .STK-MED ONE Stop: 07/16/19 08:40 Last Admin: 07/16/19 11:31 Dose: 2 gm Cefazolin Sodium (Ancef) Confirm Administered Dose 2 gm .ROUTE .STK-MED ONE Stop: 07/16/19 10:38 Cefazolin Sodium (Ancef) Confirm Administered Dose 2 gm .ROUTE .STK-MED ONE Stop: 07/16/19 13:14 Morphine Sulfate 8 mg/Epinephrine HCl 0.3 mg/Cefuroxime Sodium 750 mg/Ketorolac Tromethamine 30 mg/Sodium Chloride 27.9 ml 0 mg .XX ONETIME ONE Stop: 07/16/19 11:31 Last Admin: 07/16/19 19:52 Dose: Not Given Ephedrine Sulfate (Ephedrine In Ns) Confirm Administered Dose 25 mg .ROUTE .STK- MED ONE Stop: 07/16/19 11:18 Fentanyl (Sublimaze) Confirm Administered Dose 100 mcg .ROUTE .STK-MED ONE Stop: 07/16/19 08:40 Fentanyl (Sublimaze) Confirm Administered Dose 100 mcg .ROUTE .STK-MED ONE Stop: 07/16/19 11:53 Fentanyl (Sublimaze) 50 mcg IVPUSH Q5M PRN PRN Reason: Pain Stop: 07/16/19 18:00 Hydrocortisone Sodium Succinate (Solu-Cortef) Confirm Administered Dose 100 mg .ROUTE .STK-MED ONE Stop: 07/16/19 10:23 Hydromorphone HCl (Dilaudid) 0.5 mg IVPUSH Q10M PRN PRN Reason: Pain (severe 7-10) Stop: 07/16/19 18:00 Lactated Ringer's (Ringers, Lactated) 1,000 mls @ 125 mls/hr IV ASDIRECTED [facility] Stop: 07/16/19 23:00 Last Admin: 07/16/19 09:35 Dose: 125 mls/hr Lactated Ringer's (Ringers, Lactated) Confirm Administered Dose 0 mls @ as directed .ROUTE .STK-MED ONE Stop: 07/16/19 08:52 Sodium Chloride (Normal Saline) Confirm Administered Dose 100 mls @ as directed .ROUTE .STK-MED ONE Stop: 07/16/19 11:18 Lactated Ringer's (Ringers, Lactated) Confirm Administered Dose 1,000 mls @ as directed .ROUTE .STK-MED ONE Stop: 07/16/19 12:00 Lactated Ringer's (Ringers, Lactated) Confirm Administered Dose 1,000 mls @ as directed .ROUTE .STK-MED ONE Stop: 07/16/19 12:00 Iodine (Iodine 2% Mild Tincture) Confirm Administered Dose 30 ml .ROUTE .STK- MED ONE Stop: 07/16/19 13:14 Last Admin: 07/16/19 11:29 Dose: 18 ml Ketamine HCl (Ketalar) Confirm Administered Dose 500 mg .ROUTE .STK-MED ONE Stop: 07/16/19 10:54 Ketorolac Tromethamine (Toradol) 15 mg IVPUSH Q6H PRN PRN Reason: Pain Last Admin: 07/16/19 23:36 Dose: 15 mg Lidocaine/Sodium Bicarbonate (Buffered Lidocaine 1% In Ns 8.4%) 0.25 ml IDERM ONETIME PRN PRN Reason: Prior to IV Start Stop: 07/16/19 18:00 Last Admin: 07/16/19 09:35 Dose: 0.25 ml Midazolam HCl (Versed 1 Mg/Ml) Confirm Administered Dose 2 mg .ROUTE .STK-MED ONE Stop: 07/16/19 08:41 Midazolam HCl (Versed 1 Mg/Ml) Confirm Administered Dose 2 mg .ROUTE .STK-MED ONE Stop: 07/16/19 10:19 Midazolam HCl (Versed 1 Mg/Ml) Confirm Administered Dose 2 mg .ROUTE .STK-MED ONE Stop: 07/16/19 11:00 Non-Formulary Medication (Amoxicillin [Amoxicillin]) 2,000 mg PO ASDIRECTED PRN PRN Reason: dental procedures Non-Formulary Medication (Ranitidine) 150 mg PO BID [facility] Non-Formulary Medication (Ubidecarenone) 100 mg PO DAILY [facility] Ondansetron HCl (Zofran) Confirm Administered Dose 4 mg .ROUTE .STK-MED ONE Stop: 07/16/19 08:40 Ondansetron HCl (Zofran) 4 mg IVPUSH ONETIME PRN PRN Reason: Nausea/Vomiting Oxycodone HCl (Oxycontin) 10 mg PO ONETIME [facility] Stop: 07/16/19 12:00 Last Admin: 07/16/19 09:42 Dose: 10 mg Phenylephrine HCl (Phenylephrine In Ns 100 Mcg/Ml) Confirm Administered Dose 1 mg .ROUTE .STK-MED ONE Stop: 07/16/19 10:47 Phenylephrine HCl (Flaquito-Synephrine) Confirm Administered Dose 10 mg .ROUTE .STK- MED ONE Stop: 07/16/19 11:18 Pregabalin (Lyrica) 50 mg PO ONETIME [facility] Stop: 07/16/19 12:00 Last Admin: 07/16/19 09:42 Dose: 50 mg Propofol (Diprivan 20 Ml) Confirm Administered Dose 600 mg .ROUTE .STK-MED ONE Stop: 07/16/19 08:40 Propofol (Diprivan 20 Ml) Confirm Administered Dose 600 mg .ROUTE .STK-MED ONE Stop: 07/16/19 10:19 Ropivacaine (Naropin 0.5%) Confirm Administered Dose 30 ml .ROUTE .STK-MED ONE Stop: 07/16/19 07:35 Sodium Chloride (Saline Flush) 10 ml FLUSH ASDIRECTED PRN PRN Reason: Keep Vein Open Stop: 07/16/19 18:00 Tranexamic Acid (Cyklokapron) Confirm Administered Dose 1,000 mg .ROUTE .STK- MED ONE Stop: 07/16/19 13:14 Last Admin: 07/16/19 13:21 Dose: 1,000 mg Vancomycin HCl (Vancomycin) Confirm Administered Dose 1 gm .ROUTE .STK-MED ONE Stop: 07/16/19 13:14 Last Admin: 07/16/19 13:21 Dose: 1 gm - Exam Wound/Incisions: Dressing Dry and Intact General: Alert, Cooperative, No Acute Distress Lungs: Normal Respiratory Effort Extremities: Other (NVS intact for LLE. Kalyn's negative for LLE. Left plantar fascia tenderness noted.) - Problem List Review Problem List Initiated/Reviewed/Updated: Yes - My Orders Last 24 Hours: Active Orders 24 hr Category Date Time Status Patient Status [ADT] Routine ADT 07/16/19 07:24 Active Antiembolic Devices [RC] BID Care 07/16/19 07:24 Active Cooling Warming Measures [RC] ASDIRECTED Care 07/16/19 11:31 Inactive Notify Provider Consults [RC] ASDIRECTED Care 07/16/19 07:28 Active Oxygen Therapy [RC] PRN Care 07/16/19 07:24 Active Pulse Oximetry [RC] ASDIRECTED Care 07/16/19 11:31 Active Ready for Discharge [RC] PER UNIT ROUTINE Care 07/17/19 08:22 Ordered Vital Signs [RC] Q15M Care 07/16/19 11:31 Inactive Vital Signs [RC] Q4HR Care 07/16/19 07:24 Active Regular Diet [DIET] Diet 07/16/19 Lunch Active Acetaminophen/Codeine [Tylenol with Codeine No.3 300MG/ Med 07/16/19 13:00 Active 30MG] 1 - 2 tab PO Q4H PRN Aspirin [Halfprin] Med 07/17/19 07:00 Active 81 mg PO DAILY@0700 Bisacodyl [Dulcolax] Med 07/16/19 13:00 Active 5 mg PO DAILY PRN Cholecalciferol (Vitamin D3) [Vitamin D3] Med 07/17/19 07:00 Active 5,000 unit PO DAILY@0700 Cyclobenzaprine [Flexeril] Med 07/16/19 13:00 Active 5 mg PO BID PRN Docusate Sodium [Colace] Med 07/16/19 19:00 Active 100 mg PO BID@0700,1900 Ezetimibe [Zetia] Med 07/16/19 18:15 Active 10 mg PO BEDTIME@1900 Famotidine [Pepcid] Med 07/16/19 19:00 Active 20 mg PO Q12H Gemfibrozil [Lopid] Med 07/16/19 21:00 Active 300 mg PO BID Hydrocortisone [Cortef] Med 07/16/19 13:00 Active 10 mg PO BEDTIME PRN Hydrocortisone [Cortef] Med 07/16/19 14:30 Active 20 mg PO 1430 Hydrocortisone [Cortef] Med 07/17/19 07:00 Active 20 mg PO DAILY@0700 Iron Polysaccharides Complex [Ferrex 150] Med 07/16/19 19:00 Active 150 mg PO BEDTIME@1900 Isosorbide Mononitrate [Imdur] Med 07/16/19 19:00 Active 30 mg PO BID@0700,1900 Levothyroxine Med 07/17/19 06:00 Active 175 mcg PO ACBREAKFAST Lisinopril [Prinivil] Med 07/17/19 07:00 Active 2.5 mg PO DAILY@0700 Magnesium Hydroxide [Milk of Magnesia] Med 07/16/19 13:00 Active 30 ml PO BID PRN Magnesium Oxide Med 07/16/19 19:00 Active 200 mg PO BEDTIME@1900 Morphine Med 07/16/19 13:00 Active 2 mg IVPUSH Q2H PRN Naloxone [Narcan] Med 07/16/19 13:00 Active 0.1 mg IVPUSH Q5M PRN Nitroglycerin [Nitrostat] Med 07/16/19 13:00 Active 0.4 mg SL ASDIRECTED PRN Ondansetron [Zofran] Med 07/16/19 13:00 Active 4 mg IVPUSH Q6H PRN Pantoprazole [ProTONIX] Med 07/16/19 19:00 Active 40 mg PO BID@0700,1900 Rivaroxaban [Xarelto] Med 07/17/19 09:00 Active 10 mg PO DAILY Rosuvastatin [Crestor] Med 07/16/19 19:00 Active 40 mg PO BEDTIME@1900 Sennosides [Senna] Med 07/16/19 13:00 Active 8.6 mg PO BID PRN amLODIPine [Norvasc] Med 07/16/19 18:15 Active 5 mg PO BID@0700,1900 ceFAZolin [Ancef] 2 gm Med 07/16/19 21:00 Active Premix Bag 1 bag IV Q8H hydroCHLOROthiazide Med 07/16/19 19:00 Active 25 mg PO BEDTIME@1900 Antiembolic Hose [OM.PC] Per Unit Routine Oth 07/16/19 07:25 Ordered Ice Therapy [OM.PC] Per Unit Routine Oth 07/16/19 07:24 Ordered Medication Orders Acetaminophen/Codeine Phosphate (Tylenol With Codeine No.3 300mg/30mg) 1 - 2 tab PO Q4H PRN PRN Reason: Pain Last Admin: 07/17/19 05:33 Dose: 2 tab Admin: 07/17/19 01:24 Dose: 2 tab Admin: 07/16/19 21:16 Dose: 2 tab Admin: 07/16/19 16:32 Dose: 2 tab Amlodipine Besylate (Norvasc) 5 mg PO BID@0700,1900 [facility] Last Admin: 07/17/19 06:57 Dose: 5 mg Admin: 07/16/19 18:34 Dose: Admin: 07/16/19 18:19 Dose: 5 mg Aspirin (Halfprin) 81 mg PO DAILY@0700 [facility] Last Admin: 07/17/19 06:58 Dose: 81 mg Bisacodyl (Dulcolax) 5 mg PO DAILY PRN PRN Reason: Constipation Cholecalciferol (Vitamin D3) 5,000 unit PO DAILY@0700 [facility] Last Admin: 07/17/19 07:00 Dose: 5,000 unit Cyclobenzaprine HCl (Flexeril) 5 mg PO BID PRN PRN Reason: Spasms Last Admin: 07/16/19 20:15 Dose: 5 mg Docusate Sodium (Colace) 100 mg PO BID@0700,1900 [facility] Last Admin: 07/17/19 06:57 Dose: 100 mg Admin: 07/16/19 18:18 Dose: 100 mg Ezetimibe (Zetia) 10 mg PO BEDTIME@1900 [facility] Last Admin: 07/16/19 18:22 Dose: Admin: 07/16/19 18:20 Dose: 10 mg Famotidine (Pepcid) 20 mg PO Q12H [facility] Last Admin: 07/17/19 07:00 Dose: 20 mg Admin: 07/16/19 18:18 Dose: 20 mg Gemfibrozil (Lopid) 300 mg PO BID [facility] Last Admin: 07/16/19 20:16 Dose: 300 mg Hydrochlorothiazide (Hydrochlorothiazide) 25 mg PO BEDTIME@1900 [facility] Last Admin: 07/16/19 18:21 Dose: 25 mg Hydrocortisone (Cortef) 10 mg PO BEDTIME PRN PRN Reason: STRESS DOSE Hydrocortisone (Cortef) 20 mg PO 1430 [facility] Last Admin: 07/16/19 14:50 Dose: Not Given Hydrocortisone (Cortef) 20 mg PO DAILY@0700 [facility] Last Admin: 07/17/19 06:57 Dose: 20 mg Cefazolin Sodium/Dextrose 2 gm (/ Premix) 50 mls @ 100 mls/hr IV Q8H [facility] Stop: 07/17/19 13:29 Last Admin: 07/17/19 05:25 Dose: 100 mls/hr Infusion: 07/16/19 20:46 Dose: 100 mls/hr Admin: 07/16/19 20:16 Dose: 100 mls/hr Isosorbide Mononitrate (Imdur) 30 mg PO BID@0700,1900 [facility] Last Admin: 07/17/19 07:00 Dose: 30 mg Admin: 07/16/19 18:21 Dose: 30 mg Levothyroxine Sodium (Levothyroxine) 175 mcg PO ACBREAKFAST [facility] Last Admin: 07/17/19 05:24 Dose: 175 mcg Lisinopril (Prinivil) 2.5 mg PO DAILY@0700 [facility] Last Admin: 07/17/19 06:58 Dose: 2.5 mg Magnesium Hydroxide (Milk Of Magnesia) 30 ml PO BID PRN PRN Reason: Constipation Magnesium Oxide (Magnesium Oxide) 200 mg PO BEDTIME@1900 [facility] Last Admin: 07/16/19 18:32 Dose: 200 mg Morphine Sulfate (Morphine) 2 mg IVPUSH Q2H PRN PRN Reason: Breakthrough Pain Naloxone HCl (Narcan) 0.1 mg IVPUSH Q5M PRN PRN Reason: Oversedation Nitroglycerin (Nitrostat) 0.4 mg SL ASDIRECTED PRN PRN Reason: Chest Pain Ondansetron HCl (Zofran) 4 mg IVPUSH Q6H PRN PRN Reason: Nausea/Vomiting Pantoprazole Sodium (Protonix) 40 mg PO BID@0700,1900 [facility] Last Admin: 07/17/19 07:00 Dose: 40 mg Admin: 07/16/19 18:32 Dose: 40 mg Polysaccharide Iron Complex (Ferrex 150) 150 mg PO BEDTIME@1900 [facility] Last Admin: 07/16/19 18:18 Dose: 150 mg Rivaroxaban (Xarelto) 10 mg PO DAILY [facility] Rosuvastatin Calcium (Crestor) 40 mg PO BEDTIME@1900 [facility] Last Admin: 07/16/19 18:31 Dose: 40 mg Senna (Senna) 8.6 mg PO BID PRN PRN Reason: Constipation - Assessment Assessment (Free Text/Narrative):: POD#1 - left TKA - Plan Plan (Free Text/Narrative):: 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 2. Hgb 10.7. 3. Xarelto 10mg PO daily. 4. Discharge to home today if cleared by Hospitalist service and therapies. The pt's case was discussed with Dr. Landis.
[2019-07-17] MEDS ORDERED: Non-Formulary Medication 1 Each (Ubidecarenone 100 MG) PO SCH (09:00)
[2019-07-17] MEDS ORDERED: Rivaroxaban 10 MG Tab PO SCH (09:00)
[2019-07-17] MEDS: Cyclobenzaprine 10 MG Tab PO PRN (09:01)
[2019-07-17] MEDS: Gemfibrozil 600 MG Tab PO SCH (09:02)
--- NOTE | 2019-07-17 09:04 | PCM48HPAN ---
Post Anesthesia Note - EVALUATION WITHIN 48HRS OF ANESTHETIC Vital Signs in Normal Range: Yes Patient Participated in Evaluation: Yes Respiratory Function Stable: Yes Airway Patent: Yes Cardiovascular Function Stable: Yes Hydration Status Stable: Yes Pain Control Satisfactory: Yes Nausea and Vomiting Control Satisfactory: Yes Mental Status Recovered: Yes Vital Signs: Last Vital Signs Temp 36.4 C 07/17/19 03:33 Pulse 67 07/17/19 06:59 Resp 14 07/17/19 03:33 BP 103/57 L 07/17/19 07:00 Pulse Ox 93 L 07/17/19 06:59
--- NOTE | 2019-07-17 09:21 | PCM.DCSUM1 ---
Discharge Summary - Hospital Course Brief History: Milton is a 78 yo male who underwent left TKA with Dr. Landis on 07-16-2019. The procedure was completed under spinal anesthesia with MAC. A post- operative adductor canal block was provided. The pt tolerated the procedure well and was admitted to the Medical-Surgical Unit. Medical management was provided by the Hospitalist service. 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 The pt's Hospital course was uneventful. The pt's Hgb on POD#1 was 10.7. On POD#1, Xarelto 10mg PO daily was initiated for VTE prophylaxis. SCDs and TEDs were also ordered. A Mepilex dressing was placed at the incision site at the time of surgery and remained clean and dry. The pt participated in P.T. and O.T. and progressed well. The pt was allowed to WBAT and used a FWW for mobility. On POD#1, the pt was deemed appropriate to discharge to home. - Discharge Data Discharge Date: 07/17/19 Discharge Disposition: Home, Self-Care 01 Condition: Good - Referral to Home Health Primary Care Physician: MECHE Petersen - Patient Summary/Data Consults: Consultations 07/16/19 07:22 OT Evaluation and Treatment [CONS] Routine PT Evaluation and Treatment [CONS] Routine 07/16/19 07:23 Consult to Physician [CONS] Routine - Patient Instructions Diet: Usual Diet as Tolerated Activity: Apply Ice, As Tolerated, Elevate Extremity, Full Weight Bearing Driving: Do Not Drive Showering/Bathing: May Shower Wound/Incision Care: Keep Operative Site/Wound Site Clean and Dry, Do NOT Change Dressing Notify Provider of: Fever, Increased Pain, Swelling and Redness, Drainage, Nausea and/or Vomiting Other/Special Instructions: Please get up and moving around EVERY HOUR while awake. This helps to prevent blood clots. Please use your walker and have help with mobility as needed. Take a short walk in your home every hour while awake. Please take the Xarelto blood thinner medication daily as directed. At home, please complete the exercises that you learned during the Hospital stay. Schedule for physical therapy. Use the pain medication as needed. The medication may cause drowsiness and constipation. Contact your primary care provider for instructions if you are constipated. You may use a stool softener like docusate sodium or Colace 100mg twice daily and/or a laxative like Miralax daily for constipation. Increase your water and fiber intake while you are using the pain medication. Discontinue use of the pain medication as soon as able. Please do not use other medications that may cause drowsiness (other pain medications, anxiety pills, cold medications, sleeping pills, etc) while using the prescription pain medication. Do not use alcohol while using the pain medication. You may use acetaminophen or Tylenol for pain management, however, please ensure you are not using over 4000 mg or 4 grams of acetaminophen per day from all sources. Your pain medication has 300 mg of acetaminophen per tablet. At this time, please do not use ibuprofen (Motrin, Advil) or naproxen (Aleve) for pain management as you are using the Xarelto. When the Xarelto course is completed in 4 weeks, you could use ibuprofen or naproxen for pain management (if this is allowed by your primary care provider) . Wear the RABIA hose during the day and you may remove these at night. Elevate the limb to decrease swelling. Place ice to the area often. Place a towel between your skin and the blue pad. Use the incentive spirometer often. Take deep breaths throughout the day. Please keep the dressing in place until follow -up. Notify the Clinic if the dressing becomes saturated. Increase your protein intake while you are healing. Call the Clinic with questions or concerns - [phone]. - Discharge Plan *PRESCRIPTION DRUG MONITORING PROGRAM REVIEWED*: No *COPY OF PRESCRIPTION DRUG MONITORING REPORT IN PATIENT DA: No Prescriptions/Med Rec: Acetaminophen/Codeine [Tylenol with Codeine No.3 300MG/30MG] 1 - 2 tab PO Q4H PRN #60 tablet PRN Reason: Pain Cyclobenzaprine [Flexeril] 10 mg PO BID PRN #40 tablet PRN Reason: Spasms Rivaroxaban [Xarelto] 10 mg PO DAILY #30 tablet Home Medications: Home Meds Gemfibrozil [Lopid] 300 mg PO BID 08/15/15 [History] Isosorbide Mononitrate [Isosorbide Mononitrate ER] 30 mg PO BID 08/15/15 [ History] Levothyroxine Sodium [Synthroid] 175 mcg PO ACBREAKFAST 08/15/15 [History] Nitroglycerin [Nitrostat] 1 tab SL ASDIRECTED PRN 08/15/15 [History] Rosuvastatin [Crestor] 40 mg PO BEDTIME 08/15/15 [History] Ubidecarenone [Co Q-10] 100 mg PO DAILY 08/15/15 [History] Amoxicillin 2,000 mg PO ASDIRECTED PRN 02/23/17 [History] Aspirin [Halfprin] 81 mg PO DAILY 02/23/17 [History] Omeprazole 40 mg PO BID 02/24/17 [History] Ezetimibe [Zetia] 10 mg PO BEDTIME 07/15/19 [History] Hydrocortisone [Cortef] 20 mg PO 0700,1430 07/15/19 [History] Lisinopril 2.5 mg PO DAILY 07/15/19 [History] amLODIPine [Norvasc] 5 mg PO BID 07/15/19 [History] Cholecalciferol (Vitamin D3) [Vitamin D3] 5,000 unit PO DAILY 07/16/19 [History] Hydrocortisone [Cortef] 10 mg PO BEDTIME PRN 07/16/19 [History] Hydrocortisone [Cortef] 20 mg PO 1430 07/16/19 [History] Iron 65 mg PO BEDTIME 07/16/19 [History] Magnesium 250 mg PO BEDTIME 07/16/19 [History] Ranitidine [Zantac] 150 mg PO BID 07/16/19 [History] hydroCHLOROthiazide [Hydrochlorothiazide] 25 mg PO BID 07/16/19 [History] Acetaminophen/Codeine [Tylenol with Codeine No.3 300MG/30MG] 1 - 2 tab PO Q4H PRN #60 tablet 07/17/19 [Rx] Bisacodyl [Dulcolax] 5 mg PO DAILY PRN tablet 07/17/19 [Rx] Cyclobenzaprine [Flexeril] 10 mg PO BID PRN #40 tablet 07/17/19 [Rx] Docusate Sodium [Colace] 100 mg PO BID@0700,1900 cap 07/17/19 [Rx] Rivaroxaban [Xarelto] 10 mg PO DAILY #30 tablet 07/17/19 [Rx] Sennosides [Senna] 8.6 mg PO BID PRN tablet 07/17/19 [Rx] Patient Handouts: Rivaroxaban oral tablets Referrals: Karen Pro PA-C [Physician Procedures Tech] - - Discharge Summary/Plan Comment DC Time >30 min.: No - Patient Data Vitals - Most Recent: Last Vital Signs Temp 97.5 F 07/17/19 03:33 Pulse 67 07/17/19 06:59 Resp 14 07/17/19 03:33 BP 103/57 L 07/17/19 07:00 Pulse Ox 93 L 07/17/19 06:59 Weight - Most Recent: 209 lb I&O - Last 24 hours: Intake & Output 07/16/19 07/17/19 07/17/19 22:59 06:59 14:59 Intake Total 600 1250 Output Total 300 800 Balance 300 450 Lab Results - Last 24 hrs: Laboratory Results - last 24 hr 07/17/19 07/17/19 Range/Units 05:30 05:30 WBC 8.89 (4.23-9.07) K/mm3 RBC 3.27 L (4.63-6.08) M/mm3 Hgb 10.7 L D (13.7-17.5) gm/dl Hct 32.0 L (40.1-51.0) % MCV 97.9 H (79.0-92.2) fl MCH 32.7 H (25.7-32.2) pg MCHC 33.4 (32.2-35.5) g/dl RDW Std Deviation 42.9 (35.1-43.9) fL Plt Count 182 (163-337) K/mm3 MPV 10.3 (9.4-12.3) fl Sodium 136 (136-145) mEq/L Potassium 3.9 (3.5-5.1) mEq/L Chloride 101 (98-107) mEq/L Carbon Dioxide 28 (21-32) mEq/L Anion Gap 10.9 (5-15) BUN 28 H (7-18) mg/dL Creatinine 1.5 H (0.7-1.3) mg/dL Est Cr Clr Drug Dosing 39.93 mL/min Estimated GFR (MDRD) 45 (>60) mL/min BUN/Creatinine Ratio 18.7 H (14-18) Glucose 91 (83-115) mg/dL Calcium 8.3 L (8.5-10.1) mg/dL Total Bilirubin 0.3 (0.2-1.0) mg/dL AST 20 (15-37) U/L ALT 17 (16-63) U/L Alkaline Phosphatase 55 (46-116) U/L Total Protein 5.4 L (6.4-8.2) g/dl Albumin 2.7 L (3.4-5.0) g/dl Globulin 2.7 gm/dL Albumin/Globulin Ratio 1.0 (1-2) Med Orders - Current: Current Medications Acetaminophen/Codeine Phosphate (Tylenol With Codeine No.3 300mg/30mg) 1 - 2 tab PO Q4H PRN PRN Reason: Pain Last Admin: 07/17/19 05:33 Dose: 2 tab Amlodipine Besylate (Norvasc) 5 mg PO BID@0700,1900 [facility] Last Admin: 07/17/19 06:57 Dose: 5 mg Aspirin (Halfprin) 81 mg PO DAILY@0700 [facility] Last Admin: 07/17/19 06:58 Dose: 81 mg Bisacodyl (Dulcolax) 5 mg PO DAILY PRN PRN Reason: Constipation Cholecalciferol (Vitamin D3) 5,000 unit PO DAILY@0700 [facility] Last Admin: 07/17/19 07:00 Dose: 5,000 unit Cyclobenzaprine HCl (Flexeril) 5 mg PO BID PRN PRN Reason: Spasms Last Admin: 07/17/19 09:01 Dose: 5 mg Docusate Sodium (Colace) 100 mg PO BID@0700,1900 [facility] Last Admin: 07/17/19 06:57 Dose: 100 mg Ezetimibe (Zetia) 10 mg PO BEDTIME@1900 [facility] Last Admin: 07/16/19 18:22 Dose: Not Given Famotidine (Pepcid) 20 mg PO Q12H [facility] Last Admin: 07/17/19 07:00 Dose: 20 mg Gemfibrozil (Lopid) 300 mg PO BID [facility] Last Admin: 07/17/19 09:02 Dose: 300 mg Hydrochlorothiazide (Hydrochlorothiazide) 25 mg PO BEDTIME@1900 [facility] Last Admin: 07/16/19 18:21 Dose: 25 mg Hydrocortisone (Cortef) 10 mg PO BEDTIME PRN PRN Reason: STRESS DOSE Hydrocortisone (Cortef) 20 mg PO 1430 [facility] Last Admin: 07/16/19 14:50 Dose: Not Given Hydrocortisone (Cortef) 20 mg PO DAILY@0700 [facility] Last Admin: 07/17/19 06:57 Dose: 20 mg Cefazolin Sodium/Dextrose 2 gm (/ Premix) 50 mls @ 100 mls/hr IV Q8H [facility] Stop: 07/17/19 13:29 Last Admin: 07/17/19 05:25 Dose: 100 mls/hr Isosorbide Mononitrate (Imdur) 30 mg PO BID@0700,1900 [facility] Last Admin: 07/17/19 07:00 Dose: 30 mg Levothyroxine Sodium (Levothyroxine) 175 mcg PO ACBREAKFAST [facility] Last Admin: 07/17/19 05:24 Dose: 175 mcg Lisinopril (Prinivil) 2.5 mg PO DAILY@0700 [facility] Last Admin: 07/17/19 06:58 Dose: 2.5 mg Magnesium Hydroxide (Milk Of Magnesia) 30 ml PO BID PRN PRN Reason: Constipation Magnesium Oxide (Magnesium Oxide) 200 mg PO BEDTIME@1900 [facility] Last Admin: 07/16/19 18:32 Dose: 200 mg Morphine Sulfate (Morphine) 2 mg IVPUSH Q2H PRN PRN Reason: Breakthrough Pain Naloxone HCl (Narcan) 0.1 mg IVPUSH Q5M PRN PRN Reason: Oversedation Nitroglycerin (Nitrostat) 0.4 mg SL ASDIRECTED PRN PRN Reason: Chest Pain Ondansetron HCl (Zofran) 4 mg IVPUSH Q6H PRN PRN Reason: Nausea/Vomiting Pantoprazole Sodium (Protonix) 40 mg PO BID@0700,1900 [facility] Last Admin: 07/17/19 07:00 Dose: 40 mg Polysaccharide Iron Complex (Ferrex 150) 150 mg PO BEDTIME@1900 [facility] Last Admin: 07/16/19 18:18 Dose: 150 mg Rivaroxaban (Xarelto) 10 mg PO DAILY [facility] Last Admin: 07/17/19 09:00 Dose: 10 mg Rosuvastatin Calcium (Crestor) 40 mg PO BEDTIME@1900 [facility] Last Admin: 07/16/19 18:31 Dose: 40 mg Senna (Senna) 8.6 mg PO BID PRN PRN Reason: Constipation Discontinued Medications Acetaminophen (Tylenol) 975 mg PO ONETIME [facility] Stop: 07/16/19 12:00 Last Admin: 07/16/19 09:42 Dose: 975 mg Bupivacaine HCl (Sensorcaine-Mpf 0.25%) Confirm Administered Dose 30 ml .ROUTE .STK-MED ONE Stop: 07/16/19 13:14 Last Admin: 07/16/19 11:37 Dose: 20 ml Cefazolin Sodium (Ancef) Confirm Administered Dose 2 gm .ROUTE .STK-MED ONE Stop: 07/16/19 08:40 Last Admin: 07/16/19 11:31 Dose: 2 gm Cefazolin Sodium (Ancef) Confirm Administered Dose 2 gm .ROUTE .STK-MED ONE Stop: 07/16/19 10:38 Cefazolin Sodium (Ancef) Confirm Administered Dose 2 gm .ROUTE .STK-MED ONE Stop: 07/16/19 13:14 Morphine Sulfate 8 mg/Epinephrine HCl 0.3 mg/Cefuroxime Sodium 750 mg/Ketorolac Tromethamine 30 mg/Sodium Chloride 27.9 ml 0 mg .XX ONETIME ONE Stop: 07/16/19 11:31 Last Admin: 07/16/19 19:52 Dose: Not Given Ephedrine Sulfate (Ephedrine In Ns) Confirm Administered Dose 25 mg .ROUTE .STK- MED ONE Stop: 07/16/19 11:18 Fentanyl (Sublimaze) Confirm Administered Dose 100 mcg .ROUTE .STK-MED ONE Stop: 07/16/19 08:40 Fentanyl (Sublimaze) Confirm Administered Dose 100 mcg .ROUTE .STK-MED ONE Stop: 07/16/19 11:53 Fentanyl (Sublimaze) 50 mcg IVPUSH Q5M PRN PRN Reason: Pain Stop: 07/16/19 18:00 Hydrocortisone Sodium Succinate (Solu-Cortef) Confirm Administered Dose 100 mg .ROUTE .STK-MED ONE Stop: 07/16/19 10:23 Hydromorphone HCl (Dilaudid) 0.5 mg IVPUSH Q10M PRN PRN Reason: Pain (severe 7-10) Stop: 07/16/19 18:00 Lactated Ringer's (Ringers, Lactated) 1,000 mls @ 125 mls/hr IV ASDIRECTED ANUP Stop: 07/16/19 23:00 Last Admin: 07/16/19 09:35 Dose: 125 mls/hr Lactated Ringer's (Ringers, Lactated) Confirm Administered Dose 0 mls @ as directed .ROUTE .STK-MED ONE Stop: 07/16/19 08:52 Sodium Chloride (Normal Saline) Confirm Administered Dose 100 mls @ as directed .ROUTE .STK-MED ONE Stop: 07/16/19 11:18 Lactated Ringer's (Ringers, Lactated) Confirm Administered Dose 1,000 mls @ as directed .ROUTE .STK-MED ONE Stop: 07/16/19 12:00 Lactated Ringer's (Ringers, Lactated) Confirm Administered Dose 1,000 mls @ as directed .ROUTE .STK-MED ONE Stop: 07/16/19 12:00 Iodine (Iodine 2% Mild Tincture) Confirm Administered Dose 30 ml .ROUTE .STK- MED ONE Stop: 07/16/19 13:14 Last Admin: 07/16/19 11:29 Dose: 18 ml Ketamine HCl (Ketalar) Confirm Administered Dose 500 mg .ROUTE .STK-MED ONE Stop: 07/16/19 10:54 Ketorolac Tromethamine (Toradol) 15 mg IVPUSH Q6H PRN PRN Reason: Pain Last Admin: 07/16/19 23:36 Dose: 15 mg Lidocaine/Sodium Bicarbonate (Buffered Lidocaine 1% In Ns 8.4%) 0.25 ml IDERM ONETIME PRN PRN Reason: Prior to IV Start Stop: 07/16/19 18:00 Last Admin: 07/16/19 09:35 Dose: 0.25 ml Midazolam HCl (Versed 1 Mg/Ml) Confirm Administered Dose 2 mg .ROUTE .STK-MED ONE Stop: 07/16/19 08:41 Midazolam HCl (Versed 1 Mg/Ml) Confirm Administered Dose 2 mg .ROUTE .STK-MED ONE Stop: 07/16/19 10:19 Midazolam HCl (Versed 1 Mg/Ml) Confirm Administered Dose 2 mg .ROUTE .STK-MED ONE Stop: 07/16/19 11:00 Non-Formulary Medication (Amoxicillin [Amoxicillin]) 2,000 mg PO ASDIRECTED PRN PRN Reason: dental procedures Non-Formulary Medication (Ranitidine) 150 mg PO BID ANUP Non-Formulary Medication (Ubidecarenone) 100 mg PO DAILY ANUP Ondansetron HCl (Zofran) Confirm Administered Dose 4 mg .ROUTE .STK-MED ONE Stop: 07/16/19 08:40 Ondansetron HCl (Zofran) 4 mg IVPUSH ONETIME PRN PRN Reason: Nausea/Vomiting Oxycodone HCl (Oxycontin) 10 mg PO ONETIME [facility] Stop: 07/16/19 12:00 Last Admin: 07/16/19 09:42 Dose: 10 mg Phenylephrine HCl (Phenylephrine In Ns 100 Mcg/Ml) Confirm Administered Dose 1 mg .ROUTE .STK-MED ONE Stop: 07/16/19 10:47 Phenylephrine HCl (Flaquito-Synephrine) Confirm Administered Dose 10 mg .ROUTE .STK- MED ONE Stop: 07/16/19 11:18 Pregabalin (Lyrica) 50 mg PO ONETIME [facility] Stop: 07/16/19 12:00 Last Admin: 07/16/19 09:42 Dose: 50 mg Propofol (Diprivan 20 Ml) Confirm Administered Dose 600 mg .ROUTE .STK-MED ONE Stop: 07/16/19 08:40 Propofol (Diprivan 20 Ml) Confirm Administered Dose 600 mg .ROUTE .STK-MED ONE Stop: 07/16/19 10:19 Ropivacaine (Naropin 0.5%) Confirm Administered Dose 30 ml .ROUTE .STK-MED ONE Stop: 07/16/19 07:35 Sodium Chloride (Saline Flush) 10 ml FLUSH ASDIRECTED PRN PRN Reason: Keep Vein Open Stop: 07/16/19 18:00 Tranexamic Acid (Cyklokapron) Confirm Administered Dose 1,000 mg .ROUTE .STK- MED ONE Stop: 07/16/19 13:14 Last Admin: 07/16/19 13:21 Dose: 1,000 mg Vancomycin HCl (Vancomycin) Confirm Administered Dose 1 gm .ROUTE .STK-MED ONE Stop: 07/16/19 13:14 Last Admin: 07/16/19 13:21 Dose: 1 gm
[2019-07-17] MEDS ORDERED: Sodium Chloride 0.9% 500 ML IV SCH (12:00)
[2019-07-17 14:21] VITALS: BP 90/52; PULSE 93
[2019-07-17] MEDS: Hydrocortisone 20 MG Tab PO SCH (15:46)
--- NOTE | 2019-07-20 11:10 | PCM.OPNOTE ---
- General Post-Op/Procedure Note Date of Surgery/Procedure: 07/16/19 Operative Procedure(s): left total knee arthroplasty Pre Op Diagnosis: left knee osteoarthrosis Post-Op Diagnosis: Same Anesthesia Technique: Local, MAC, Spinal Primary Surgeon: Santos Landis Anesthesia Provider: Mercedes Bates Highway Truck Driver: Karen Pro Highway Truck Driver: Chanda Bruno in mLs: 5 Complications: None Condition: Good Free Text/Narrative:: size 7 femur size 6 tibia 9mm [phone]
--- NOTE | 2019-07-20 11:36 | OR ---
DATE OF OPERATION: 07/16/2019 SURGEON: Santos Landis MD OPERATION PERFORMED: Left total knee arthroplasty. PREOPERATIVE DIAGNOSIS: Left knee osteoarthrosis. POSTOPERATIVE DIAGNOSIS: Left knee osteoarthrosis. ANESTHESIA: Local MAC with spinal. ANESTHESIA PROVIDER: Ophelia La. VEGETABLE THINNER: Karen Pro PA-C, and Chanda Bruno LPN. ESTIMATED BLOOD LOSS: 5 mL. COMPLICATIONS: None. CONDITION: Stable. IMPLANTS: 1. Inés size 7 cemented PS femur. 2. [place] size 6 cemented universal tibial base plate. 3. [place] size 6 9 mm PS X3 polyethylene insert. 4. [place] size 38 x 11 mm cemented patella. DESCRIPTION OF PROCEDURE: The patient was identified in the preop holding area. Proper site was marked and identified by the surgeon. The patient was taken back to the operating theater. After adequate anesthesia, the patient's left lower extremity had a nonsterile tourniquet applied and it was sterilely prepped and draped in the usual sterile fashion. OR time-out was performed. The patient received 2 g IV Ancef. At this time, the left lower extremity was exsanguinated. Tourniquet was insufflated to 300 mmHg. Standard medial parapatellar incision was made. Medial parapatellar arthrotomy was created. Deep fibers of the MCL were raised and anterior fat pad was resected. At this time, attention was turned to the patella. Patella measured a 26, it was resected to a 15 for a 38 x 11 mm patella. Drill holes were then drilled and found to be in adequate position. The drill was then drilled in the distal femur and the intramedullary distal femoral cutting guide was then placed. 8 mm was resected off the distal femur and was found to be an adequate resection. Sizing guide was placed. It was found to be a size 7 cemented PS femur that was shown on the implant record at the beginning of this dictation. The drill holes were drilled for the epicondylar axis using Whitesides line and epicondyles as reference. At this time, the 4-in-1 cutting block was placed. An anterior posterior and anterior and posterior chamfer cuts were then completed. Box cut was completed. Attention was turned to the tibia. The posterior medial lateral retractors were placed. The extramedullary tibial guide was placed. It was placed in the old footprint of the ACL. It was aligned with the center of the ankle and 0 degrees of slope, 9 mm was then resected off the unaffected side. There was found to be an acceptable reduction. At this time, posterior osteophytes were removed along with medial and lateral meniscus. A trial implant was placed with a correct sized tibia that was mentioned at the beginning of the dictation. A [place] size 6 9 mm PS X3 polyethylene insert was then placed. The patient's knee was brought through range of motion. The patella was tracking centrally and was stable to varus and valgus stress. Alignment was found to be roughly at 0 degrees. The tibia was stamped and drilled in proper rotation. The universal tibial base plate was impacted in place. Next, the [place] size 7 cemented PS femur impacted into place and the [place] size 6 9 mm PS X3 polyethylene insert was placed. The patient's knee was brought into full extension. Excess cement was removed. The patella was then cemented in place at this time. One liter dilute Betadine solution was irrigated through the knee along with 3 L of pulse lavage irrigation with Ancef. Periarticular injection was then completed. The patient's knee was brought through a range of motion. Once the cement had time to set up and it was found to be stable to varus valgus stress, the patella was tracking centrally with full range of motion. At this time, a #2 barbed suture was used for closure of the medial parapatellar arthrotomy. Topical tranexamic acid was placed. 2-0 Vicryl was used subcutaneously, Prineo was used for the skin. The patient tolerated the procedure well and was sent to the PACU in stable condition. ECHO /[id number] FOSTER
== END 2019-07-17 15:30 | disposition home or self-care (01) | DRG 470 ==
LOC: JD.MS 09:05 → EDSTATUS 14:30
PROVIDERS: ADMIT Orthopaedic Surgery; ATTEND Orthopaedic Surgery
PROC: 0SRD0J9 Replacement of Left Knee Joint with Synthetic Substitute, Cemented, Open Approach (ICD-10-PCS; principal; 2019-07-16)
PROC: 3E02340 Introduction of Influenza Vaccine into Muscle, Percutaneous Approach (ICD-10-PCS; 2019-07-16)
DX: M17.12 Unilateral primary osteoarthritis, left knee (principal); I13.0 Hypertensive heart and chronic kidney disease with heart failure and stage 1 through stage 4 chronic kidney disease, or unspecified chronic kidney disease; Z96.651 Presence of right artificial knee joint; I25.10 Atherosclerotic heart disease of native coronary artery without angina pectoris; E66.3 Overweight; E78.5 Hyperlipidemia, unspecified; H54.7 Unspecified visual loss; I50.9 Heart failure, unspecified; K21.9 Gastro-esophageal reflux disease without esophagitis; N18.3 Chronic kidney disease, stage 3 (moderate); F32.9 Major depressive disorder, single episode, unspecified; Z79.82 Long term (current) use of aspirin; Z98.49 Cataract extraction status, unspecified eye; Z23 Encounter for immunization; Z79.899 Other long term (current) drug therapy; Z88.8 Allergy status to other drugs, medicaments and biological substances; Z95.1 Presence of aortocoronary bypass graft; Z86.010 Personal history of colon polyps; I25.2 Old myocardial infarction; Z68.30 Body mass index [BMI] 30.0-30.9, adult
CPT/HCPCS: 36415; 73560-26-LT; 73560-LT; 80053; 85027; 87641; 90471; 90662; 94760; 97110-GP; 97116-GP; 97161-GP; 97165-GO; 97535-GO; A9270-GY; C1713; C1776; J0171; J0690; J0697; J1720; J1885; J2250; J2270; J2370; J2405; J2704; J2795; J3010; J3370; J3490; J7030; J7040; J7050; J7120

== ENCOUNTER 2019-07-23 18:45 | Inpatient (IN) | payer OTHER, MEDICARE ==
[2019-07-23] MEDS ORDERED: Lactated Ringers 1,000 ML IV ONE (19:34)
--- NOTE | 2019-07-23 19:38 | EDM.PDOC ---
ED HPI GENERAL MEDICAL PROBLEM - General Chief Complaint: Lower Extremity Injury/Pain Stated Complaint: [facility] Time Seen by Provider: 07/23/19 19:05 Source of Information: Reports: Patient, Family () History Limitations: Reports: Altered Mental Status (patient somnolent) - History of Present Illness INITIAL COMMENTS - FREE TEXT/NARRATIVE: Mr. 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 The patient underwent a left total knee arthroplasty at this hospital one week ago, 07/16/2019. He was discharged home the following day with prescriptions for tramadol, Tylenol with Codeine, and Xarelto. Since then, according to the patient's , the patient has not received any home or outpatient physical therapy. He does not have a continuous motion device. He has been using an ice machine, intermittently. According to the patient's , the patient has been on his feet only 5-7 times since he was discharged home, most recently on , 07/19/2019, but only for a few moments, to transfer to a wheeled chair. Additionally, the patient has been eating very poorly, only about half a cup of food twice a day, and he has been drinking very little. No recent fever, chills, cough, dyspnea, chest discomfort , palpitations, nausea, vomiting, constipation, diarrhea, or urinary symptoms. Patient's PCP is Dr. Anoop Shaw. His Orthopedic Surgeon is Dr. Santos Landis. His Housing Counselor is Dr. Rhys Gramajo. He receives additional care at the [place]. Left Knee Pain Score (Numeric/FACES): 5 - Related Data Allergies Allergy/AdvReac Type Severity Reaction Status Date / Time atorvastatin Allergy intolerance Verified 07/23/19 19:14 Iodinated Contrast Media Allergy Other Verified 07/23/19 19:14 methylprednisolone Allergy Other Verified 07/23/19 19:14 pravastatin Allergy intolderanc Verified 07/23/19 19:14 e aspirin AdvReac gi bleed Verified 07/23/19 19:14 clopidogrel bisulfate AdvReac GI Verified 07/23/19 19:14 [From Plavix] bleeding if on for a long period of time warfarin [From Coumadin] AdvReac GI bleed Verified 07/23/19 19:14 zolpidem tartrate AdvReac "mess me Verified 07/23/19 19:14 [From Ambien] up mentally" Home Meds: Home Meds Isosorbide Mononitrate [Isosorbide Mononitrate ER] 30 mg PO BID 08/15/15 [ History] Levothyroxine Sodium [Synthroid] 175 mcg PO ACBREAKFAST 08/15/15 [History] Nitroglycerin [Nitrostat] 1 tab SL ASDIRECTED PRN 08/15/15 [History] Rosuvastatin [Crestor] 40 mg PO BEDTIME 08/15/15 [History] Ubidecarenone [Co Q-10] 100 mg PO DAILY 08/15/15 [History] Aspirin [Halfprin] 81 mg PO DAILY 02/23/17 [History] Omeprazole 40 mg PO DAILY 02/24/17 [History] Ezetimibe [Zetia] 10 mg PO BEDTIME 07/15/19 [History] Hydrocortisone [Cortef] 20 mg PO 0700,1430 07/15/19 [History] Lisinopril 2.5 mg PO DAILY 07/15/19 [History] Ranitidine [Zantac] 150 mg PO BID 07/16/19 [History] hydroCHLOROthiazide [Hydrochlorothiazide] 25 mg PO BID 07/16/19 [History] Acetaminophen/Codeine [Tylenol with Codeine No.3 300MG/30MG] 1 - 2 tab PO Q4H PRN #60 tablet 07/17/19 [Rx] Cyclobenzaprine [Flexeril] 10 mg PO BID PRN #40 tablet 07/17/19 [Rx] Rivaroxaban [Xarelto] 10 mg PO DAILY #30 tablet 07/17/19 [Rx] Biotin 0.5 gm PO DAILY 07/23/19 [History] Cholecalciferol (Vitamin D3) [Vitamin D3] 1,000 unit PO DAILY 07/23/19 [History] Docusate Sodium [Colace] 100 mg PO TID 07/23/19 [History] Iron 65 mg PO DAILY 07/23/19 [History] Magnesium Oxide 210 mg PO DAILY 07/23/19 [History] amLODIPine Besylate [Amlodipine Besylate] 5 mg PO BID 07/23/19 [History] Past Medical History HEENT History: Reports: Impaired Vision Other HEENT History: tinnitus, wears glasses Cardiovascular History: Reports: CAD, High Cholesterol, Hypertension, [place] (x 2), Other (See Below) (Renal artery stenosis) Gastrointestinal History: Reports: GERD (with Baron esophagus), GI Bleed, PUD Musculoskeletal History: Reports: Osteoarthritis Endocrine/Metabolic History: Reports: [place]'s Disease (Following pituitary excision for pituitary adenoma), Hypothyroidism Oncologic (Cancer) History: Reports: Prostate (s/p RTx) - Infectious Disease History Infectious Disease History: Reports: Chicken Pox, Measles, Mumps - Past Surgical History HEENT Surgical History: Reports: Adenoidectomy, Cataract Surgery (bilateral), Tonsillectomy Cardiovascular Surgical History: Reports: Carotid Endarterectomy (left), Coronary Artery Bypass (x 4 vessel 2008), Vascular Surgery (right renal artery stent) GI Surgical History: Reports: Colonoscopy (x 4), EGD (x 2) Male Surgical History: Reports: Prostate Biopsy, Other (See Below) ( Cystoscopy) Endocrine Surgical History: Reports: Pituitary Tumor Resection (1989) Neurological Surgical History: Reports: Laminectomy, Lumbar Spine (L2-3 laminectomy x 3) Musculoskeletal Surgical History: Reports: Amputation (right thumb, partial), Knee Replacement (bilateral), Other (See Below) (Bilateral ankle & elbow. Foot. Left knee bursectomy.) Social & Family History - Family History Family Medical History: Noncontributory - Tobacco Use Smoking Status *Q: Former Smoker Years of Tobacco use: 31 Packs/Tins Daily: 1 Month/Year Tobacco Last Used: Quit 1984 - Caffeine Use Caffeine Use: Reports: Tea - Alcohol Use Alcohol Use History: Yes Alcohol Use Frequency: Socially - Recreational Drug Use Recreational Drug Use: No - Living Situation & Occupation Living situation: Reports: , with Spouse Occupation: Retired ED ROS GENERAL - Review of Systems Review Of Systems: ROS reveals no pertinent complaints other than HPI. ED EXAM, GENERAL - Physical Exam Exam: See Below Exam Limited By: No Limitations General Appearance: WD/WN, No Apparent Distress Eye Exam: Bilateral Eye: EOMI, Normal Inspection Ears: Normal External Exam, Hearing Grossly Normal Nose: Normal Inspection Throat/Mouth: Normal Inspection, Normal Lips, Normal Voice, No Airway Compromise , Other (Dry oral mucosa) Head: Atraumatic, Normocephalic Neck: Normal Inspection, Full Range of Motion, Other (Well-healed Lt CEA scar) Respiratory/Chest: No Respiratory Distress, Lungs Clear, Normal Breath Sounds, No Accessory Muscle Use Cardiovascular: Normal Peripheral Pulses, Regular Rate, Rhythm, No Edema, No Gallop, No JVD, No Murmur, No Rub Peripheral Pulses: 4+: Radial (L), Radial (R), Posterior Tibial (L), Posterior Tibial (R), Dorsalis Pedis (L), Dorsalis Pedis (R) GI/Abdominal: Normal Bowel Sounds, Soft, Non-Tender, No Organomegaly, No Distention, No Abnormal Bruit, No Mass (Male) Exam: Deferred Rectal (Males) Exam: Deferred Back Exam: Normal Inspection, Full Range of Motion, NT Extremities: No Pedal Edema, Normal Capillary Refill, Other (Both lower extremities are in thigh-high TEDS hose, and is no pretibial edema to either lower extremity. A dressing is still over the anterior left knee, underneath the compression stocking.) Neurological: Oriented, Normal Cognition, No Motor/Sensory Deficits, Slow to Respond (somewhat lethargic) Psychiatric: Normal Affect Skin Exam: Warm, Dry, Intact, Normal Color, No Rash Course - Vital Signs Last Recorded V/S: Last Vital Signs Temp 37.1 C 07/23/19 18:56 Pulse 88 07/23/19 18:56 Resp 20 07/23/19 18:56 BP 115/74 07/23/19 18:56 Pulse Ox 92 L 07/23/19 18:56 - Orders/Labs/Meds Orders: Active Orders 24 hr Category Date Time Status Chest 1V Frontal [CR] Stat Exams 07/23/19 19:33 Taken Labs: Laboratory Tests 07/23/19 07/23/19 07/23/19 Range/Units 19:45 19:45 20:10 WBC 10.05 H (4.23-9.07) K/mm3 RBC 3.48 L (4.63-6.08) M/mm3 Hgb 11.3 L (13.7-17.5) gm/dl Hct 33.7 L (40.1-51.0) % MCV 96.8 H (79.0-92.2) fl MCH 32.5 H (25.7-32.2) pg MCHC 33.5 (32.2-35.5) g/dl RDW Std Deviation 41.5 (35.1-43.9) fL Plt Count 367 H D (163-337) K/mm3 MPV 8.8 L (9.4-12.3) fl Neut % (Auto) 69.4 H (34.0-67.9) % Lymph % (Auto) 15.1 L (21.8-53.1) % [place] % (Auto) 14.3 H (5.3-12.2) % Eos % (Auto) 1.0 (0.8-7.0) Baso % (Auto) 0.2 (0.1-1.2) % Neut # (Auto) 6.97 H (1.78-5.38) K/mm3 Lymph # (Auto) 1.52 (1.32-3.57) K/mm3 [place] # (Auto) 1.44 H (0.30-0.82) K/mm3 Eos # (Auto) 0.10 (0.04-0.54) K/mm3 Baso # (Auto) 0.02 (0.01-0.08) K/mm3 Sodium 131 L (136-145) mEq/L Potassium 3.9 (3.5-5.1) mEq/L Chloride 94 L (98-107) mEq/L Carbon Dioxide 30 (21-32) mEq/L Anion Gap 10.9 (5-15) BUN 29 H (7-18) mg/dL Creatinine 1.3 (0.7-1.3) mg/dL Est Cr Clr Drug Dosing 47.57 mL/min Estimated GFR (MDRD) 53 (>60) mL/min BUN/Creatinine Ratio 22.3 H (14-18) Glucose 122 H (83-115) mg/dL Calcium 9.0 (8.5-10.1) mg/dL Magnesium 1.8 (1.8-2.4) mg/dl Total Bilirubin 0.5 (0.2-1.0) mg/dL AST 24 (15-37) U/L ALT 16 (16-63) U/L Alkaline Phosphatase 78 (46-116) U/L Total Protein 6.6 (6.4-8.2) g/dl Albumin 2.4 L (3.4-5.0) g/dl Globulin 4.2 gm/dL Albumin/Globulin Ratio 0.6 L (1-2) Urine Color Yellow (Yellow) Urine Appearance Clear (Clear) Urine pH 7.0 (5.0-8.0) Ur Specific [place] 1.015 (1.005-1.030) Urine Protein Negative (Negative) Urine Glucose (UA) Negative (Negative) Urine Ketones Negative (Negative) Urine Occult Blood Trace-lysed H (Negative) Urine Nitrite Negative (Negative) Urine Bilirubin Negative (Negative) Urine Urobilinogen 0.2 (0.2-1.0) Ur Leukocyte Esterase Negative (Negative) Urine RBC 0-5 (0-5) /hpf Urine WBC 0-5 (0-5) /hpf Ur Squamous Epith Cells Not seen (0-5) /hpf Urine Bacteria Occasional (FEW) /hpf Urine Mucus Few (FEW) /hpf Meds: Medications Discontinued Medications Generic Name Dose Route Start Last Admin Trade Name Freq PRN Reason Stop Dose Admin Lactated Ringer's 1,000 mls @ 999 mls/hr 07/23/19 19:34 07/23/19 19:54 Ringers, Lactated IV 07/23/19 20:34 999 mls/hr .BOLUS ONE Administration - Re-Assessments/Exams Free Text/Narrative Re-Assessment/Exam: 07/23/19 19:36 I have ordered some blood work, a urinalysis, and a portable chest x-ray to make sure that there are no immediate problems that need to be corrected, such as significant electrolyte abnormalities or severe anemia. In the meantime, the patient will receive 1 L of LR, however, it is very clear that the patient will need to be placed into observation with evaluation by medical social consultant tomorrow for placement into rehabilitation. He simply cannot go home until he is able to get up on his own. 07/23/19 20:26 Portable chest radiograph reviewed. Poor inspiratory effort. The cardiac silhouette is within normal limits. No pulmonary vascular congestion. No pleural effusions seen on this AP view, although the horizontal fissure is clearly visible. No focal infiltrate. No pneumothorax. Aortosclerosis incidentally noted. There are subtle calcifications in both apices suspicious for bilateral subclavian artery calcifications. Mild thoracolumbar scoliosis. Well-healed right 4th and 5th, and left 5th rib fractures incidentally noted. Formal read per the Radiologist pending. 07/23/19 20:41 The patient's CBC is remarkable for a WBC count mildly elevated at 10.05, an H/ H mildly depressed at 11.3/33.7, and platelets mildly elevated at 367,000. His CMP is remarkable for sodium slightly depressed at 131, with a chloride of 94. His BUN is mildly elevated at 29, with a creatinine normal at 1.3. His blood glucose is mildly elevated at 122. His albumin is depressed at 2.4. The remainder of his CMP is unremarkable. Magnesium level is within normal limits at 1.8. His urinalysis is unremarkable. 07/23/19 20:[address] Decker at 20:43. He accepted the patient for admission. Departure - Departure Time of Disposition: 20:50 Disposition: Admitted As Inpatient 65 Condition: Good Clinical Impression: Hyponatremia, Generalized weakness - Discharge Information *PRESCRIPTION DRUG MONITORING PROGRAM REVIEWED*: Not Applicable *COPY OF PRESCRIPTION DRUG MONITORING REPORT IN PATIENT DA: Not Applicable Referrals: Santos Landis MD [Primary Care Provider] - Anoop Shaw MD [Physician] - Rhys Gramajo MD [Ordering Only Provider] - Forms: ED Department Discharge - My Orders Last 24 Hours: My Active Orders 07/23/19 19:33 Chest 1V Frontal [CR] Stat - Assessment/Plan Last 24 Hours: My Active Orders 07/23/19 19:33 Chest 1V Frontal [CR] Stat
[2019-07-23] MEDS ORDERED: Lactated Ringers 1,000 ML IV SCH (21:15)
[2019-07-23] MEDS ORDERED: Nitroglycerin 0.4 MG Tab.SL SL PRN (22:02)
[2019-07-23] MEDS ORDERED: Ondansetron 4 MG/2 ML SDV IV PRN (22:08)
[2019-07-23] MEDS ORDERED: Acetaminophen 325 MG Tab PO PRN (22:08)
--- NOTE | 2019-07-23 22:18 | PCM.HP.2 ---
H&P History of Present Illness - General Date of Service: 07/23/19 Admit Problem/Dx: Admission Diagnosis/Problem Admission Diagnosis/Problem Weakness - History of Present Illness Initial Comments - Free Text/Narative: 78-year-old male post left total knee arthroplasty 7 days ago presents to the emergency room with worsening weakness. 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 Patient apparently did very well postop from his knee surgery, but when he got home he slowly and progressively got weaker. As he became weaker he got up and walked less and ultimately started missing his medications. Patient is on pituitary replacement, therefore missing medications can make him severely weak. Patient then in addition to missing his medications stopped drinking and eating as much worsening his symptoms. Patient also has had a 45 pound weight loss since November, he was not clear if that was intentional or not. Patient also thinks that his lisinopril is causing confusion and difficulty concentration. 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 In the emergency room he did receive 1 L of LR. Labs: CBC 10.05, hemoglobin 11.3 , platelets 367, sodium 131, potassium 3.9, BUN 29, creatinine 1.3. I needs in level I.8. Chest x-ray showed poor inspiration but otherwise negative. It was felt patient would benefit from hospitalization, treatment of his hypovolemia and hyponatremia, and possible placement at a [facility] facility for rehabilitation on his left total knee replacement. Left Knee Pain Score (Numeric/FACES): 5 - Related Data Allergies/Adverse Reactions: Allergies Allergy/AdvReac Type Severity Reaction Status Date / Time atorvastatin Allergy intolerance Verified 07/23/19 19:14 Iodinated Contrast Media Allergy Other Verified 07/23/19 19:14 methylprednisolone Allergy Other Verified 07/23/19 19:14 pravastatin Allergy intolderanc Verified 07/23/19 19:14 e aspirin AdvReac gi bleed Verified 07/23/19 19:14 clopidogrel bisulfate AdvReac GI Verified 07/23/19 19:14 [From Plavix] bleeding if on for a long period of time warfarin [From Coumadin] AdvReac GI bleed Verified 07/23/19 19:14 zolpidem tartrate AdvReac "mess me Verified 07/23/19 19:14 [From Ambien] up mentally" Home Medications: Home Meds Isosorbide Mononitrate [Isosorbide Mononitrate ER] 30 mg PO BID 08/15/15 [ History] Levothyroxine Sodium [Synthroid] 175 mcg PO ACBREAKFAST 08/15/15 [History] Nitroglycerin [Nitrostat] 1 tab SL ASDIRECTED PRN 08/15/15 [History] Rosuvastatin [Crestor] 40 mg PO BEDTIME 08/15/15 [History] Ubidecarenone [Co Q-10] 100 mg PO DAILY 08/15/15 [History] Aspirin [Halfprin] 81 mg PO DAILY 02/23/17 [History] Omeprazole 40 mg PO DAILY 02/24/17 [History] Ezetimibe [Zetia] 10 mg PO BEDTIME 07/15/19 [History] Hydrocortisone [Cortef] 20 mg PO 0700,1430 07/15/19 [History] Lisinopril 2.5 mg PO DAILY 07/15/19 [History] Ranitidine [Zantac] 150 mg PO BID 07/16/19 [History] hydroCHLOROthiazide [Hydrochlorothiazide] 25 mg PO BID 07/16/19 [History] Acetaminophen/Codeine [Tylenol with Codeine No.3 300MG/30MG] 1 - 2 tab PO Q4H PRN #60 tablet 07/17/19 [Rx] Cyclobenzaprine [Flexeril] 10 mg PO BID PRN #40 tablet 07/17/19 [Rx] Rivaroxaban [Xarelto] 10 mg PO DAILY #30 tablet 07/17/19 [Rx] Biotin 0.5 gm PO DAILY 07/23/19 [History] Cholecalciferol (Vitamin D3) [Vitamin D3] 1,000 unit PO DAILY 07/23/19 [History] Docusate Sodium [Colace] 100 mg PO TID 07/23/19 [History] Iron 65 mg PO DAILY 07/23/19 [History] Magnesium Oxide 210 mg PO DAILY 07/23/19 [History] amLODIPine Besylate [Amlodipine Besylate] 5 mg PO BID 07/23/19 [History] Past Medical History HEENT History: Reports: Impaired Vision Other HEENT History: tinnitus, wears glasses Cardiovascular History: Reports: CAD, High Cholesterol, Hypertension, AL (x 2), Other (See Below) (Renal artery stenosis) Other Cardiovascular History: AL x 2, Left carotidendartectomy, Right carotid completely blocked Respiratory History: Reports: None Gastrointestinal History: Reports: GERD (with Frank esophagus), GI Bleed, PUD Other Gastrointestinal History: frank's esophagus, GI ulcers Genitourinary History: Reports: Renal Disease Other Genitourinary History: Prostate cancer, renal stenosis - elevated BUN/CRE , CKD III, renal artery stenosis with stent placement, cystoscopy FRAUD EXAMINER History: Reports: None Musculoskeletal History: Reports: Osteoarthritis Other Musculoskeletal History: Left knee pain, right knee pain, bilateral shoulder pain - multiple back problems with lami X 2 Neurological History: Reports: None Psychiatric History: Reports: Depression Endocrine/Metabolic History: Reports: [place]'s Disease (Following pituitary excision for pituitary adenoma), Hypothyroidism Other Endocrine/Metabolic History: panhypopituitarism, 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, 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, cushings disease, pituatary adenoma Hematologic History: Reports: None Immunologic History: Reports: None Oncologic (Cancer) History: Reports: Prostate (s/p RTx) Other Oncologic History: pituitary Other Dermatologic History: thin skin with frequent skin tears, excision of lipoma, actinic keratosis - Infectious Disease History Infectious Disease History: Reports: Chicken Pox, Measles, Mumps - Past Surgical History HEENT Surgical History: Reports: Adenoidectomy, Cataract Surgery (bilateral), Tonsillectomy Cardiovascular Surgical History: Reports: Carotid Endarterectomy (left), Coronary Artery Bypass (x 4 vessel 2009), Vascular Surgery (right renal artery stent) GI Surgical History: Reports: Colonoscopy (x 4), EGD (x 2) Male Surgical History: Reports: Prostate Biopsy, Other (See Below) ( Cystoscopy) Endocrine Surgical History: Reports: Pituitary Tumor Resection (1989) Neurological Surgical History: Reports: Laminectomy, Lumbar Spine (L2-3 laminectomy x 3) Musculoskeletal Surgical History: Reports: Amputation (right thumb, partial), Knee Replacement (bilateral), Other (See Below) (Bilateral ankle & elbow. Foot. Left knee bursectomy.) Social & Family History - Family History Family Medical History: Noncontributory - Tobacco Use Smoking Status *Q: Former Smoker Years of Tobacco use: 31 Packs/Tins Daily: 1 Used Tobacco, but Quit: Yes Month/Year Tobacco Last Used: Quit 1984 - Caffeine Use Caffeine Use: Reports: Tea - Recreational Drug Use Recreational Drug Use: No - Living Situation & Occupation Living situation: Reports: , with Spouse Occupation: Retired H&P Review of Systems - Review of Systems: Review Of Systems: ROS reveals no pertinent complaints other than HPI. General: Reports: Malaise, Weakness, Fatigue, Weight Loss Exam - Exam Exam: See Below - Vital Signs Vital Signs: Last Vital Signs Temp 98.7 F 07/23/19 18:56 Pulse 88 07/23/19 18:56 Resp 20 07/23/19 18:56 BP 115/74 07/23/19 18:56 Pulse Ox 92 L 07/23/19 18:56 Weight: 205 lb - Exam Quality Assessment: Supplemental Oxygen General: Alert, Oriented, 4 HEENT: Conjunctiva Clear, EACs Clear, EOMI, Hearing Intact, Nares Patent, Normal Nasal Septum, TMs Clear, PERRLA. No: Mucosa Moist & [place] (mildly dry) Neck: Supple Lungs: Clear to Auscultation, Normal Respiratory Effort Cardiovascular: Regular Rate, Regular Rhythm GI/Abdominal Exam: Normal Bowel Sounds, Soft, Non-Tender, No Organomegaly, No Distention, No Abnormal Bruit, No Mass, Pelvis Stable (Male) Exam: No Hernia Rectal (Males) Exam: Normal Exam, Normal Rectal Tone, Prostate Normal Back Exam: Normal Inspection Extremities: Normal Inspection, Other (left knee with surgical bandage. No significant lower extremity edema.) Skin: Warm, Dry, Intact Neurological: Cranial Nerves Intact Neuro Extensive - Mental Status: Alert, Oriented x3, Normal Cognition. No: Normal Mood/Affect Neuro Extensive - Motor, Sensory, Reflexes: CN II-XII Intact - Patient Data Lab Results Last 24 hrs: Laboratory Results - last 24 hr 07/23/19 07/23/19 07/23/19 Range/Units 19:45 19:45 20:10 WBC 10.05 H (4.23-9.07) K/mm3 RBC 3.48 L (4.63-6.08) M/mm3 Hgb 11.3 L (13.7-17.5) gm/dl Hct 33.7 L (40.1-51.0) % MCV 96.8 H (79.0-92.2) fl MCH 32.5 H (25.7-32.2) pg MCHC 33.5 (32.2-35.5) g/dl RDW Std Deviation 41.5 (35.1-43.9) fL Plt Count 367 H D (163-337) K/mm3 MPV 8.8 L (9.4-12.3) fl Neut % (Auto) 69.4 H (34.0-67.9) % Lymph % (Auto) 15.1 L (21.8-53.1) % [place] % (Auto) 14.3 H (5.3-12.2) % Eos % (Auto) 1.0 (0.8-7.0) Baso % (Auto) 0.2 (0.1-1.2) % Neut # (Auto) 6.97 H (1.78-5.38) K/mm3 Lymph # (Auto) 1.52 (1.32-3.57) K/mm3 [place] # (Auto) 1.44 H (0.30-0.82) K/mm3 Eos # (Auto) 0.10 (0.04-0.54) K/mm3 Baso # (Auto) 0.02 (0.01-0.08) K/mm3 Sodium 131 L (136-145) mEq/L Potassium 3.9 (3.5-5.1) mEq/L Chloride 94 L (98-107) mEq/L Carbon Dioxide 30 (21-32) mEq/L Anion Gap 10.9 (5-15) BUN 29 H (7-18) mg/dL Creatinine 1.3 (0.7-1.3) mg/dL Est Cr Clr Drug Dosing 47.57 mL/min Estimated GFR (MDRD) 53 (>60) mL/min BUN/Creatinine Ratio 22.3 H (14-18) Glucose 122 H (83-115) mg/dL Calcium 9.0 (8.5-10.1) mg/dL Magnesium 1.8 (1.8-2.4) mg/dl Total Bilirubin 0.5 (0.2-1.0) mg/dL AST 24 (15-37) U/L ALT 16 (16-63) U/L Alkaline Phosphatase 78 (46-116) U/L Total Protein 6.6 (6.4-8.2) g/dl Albumin 2.4 L (3.4-5.0) g/dl Globulin 4.2 gm/dL Albumin/Globulin Ratio 0.6 L (1-2) Urine Color Yellow (Yellow) Urine Appearance Clear (Clear) Urine pH 7.0 (5.0-8.0) Ur Specific [place] 1.015 (1.005-1.030) Urine Protein Negative (Negative) Urine Glucose (UA) Negative (Negative) Urine Ketones Negative (Negative) Urine Occult Blood Trace-lysed H (Negative) Urine Nitrite Negative (Negative) Urine Bilirubin Negative (Negative) Urine Urobilinogen 0.2 (0.2-1.0) Ur Leukocyte Esterase Negative (Negative) Urine RBC 0-5 (0-5) /hpf Urine WBC 0-5 (0-5) /hpf Ur Squamous Epith Cells Not seen (0-5) /hpf Urine Bacteria Occasional (FEW) /hpf Urine Mucus Few (FEW) /hpf Result Diagrams: 07/23/19 19:45 07/23/19 19:45 Problem List Initiated/Reviewed/Updated: Yes Orders Last 24hrs: Active Orders 24 hr Category Date Time Status Admission Status [Patient Status] [ADT] Routine ADT 07/23/19 21:28 Active Oxygen Therapy [RC] PRN Care 07/23/19 22:08 Ordered Up ad [place] [RC] ASDIRECTED Care 07/23/19 22:08 Ordered VTE/DVT Education [RC] PER UNIT ROUTINE Care 07/23/19 22:08 Ordered Vital Signs [RC] Q4H Care 07/23/19 22:08 Ordered Consult to Steam Drier Tender [CONS] Routine Cons 07/23/19 22:08 Ordered OT Evaluation and Treatment [CONS] Routine Cons 07/23/19 22:08 Ordered PT Evaluation and Treatment [CONS] Routine Cons 07/23/19 22:08 Ordered Heart Healthy Diet [DIET] Diet 07/23/19 Breakfast Ordered Chest 1V Frontal [CR] Stat Exams 07/23/19 19:33 Taken CBC WITH AUTO DIFF [HEME] AM Lab 07/24/19 05:11 Ordered COMPREHENSIVE METABOLIC PN,CMP [CHEM] AM Lab 07/24/19 05:11 Ordered MAGNESIUM [CHEM] AM Lab 07/24/19 05:11 Ordered Acetaminophen [Tylenol] Med 07/23/19 22:08 Ordered 650 mg PO Q4H PRN Acetaminophen/Codeine [Tylenol with Codeine No.3 300MG/ Med 07/23/19 22:02 Ordered 30MG] 1 - 2 tab PO Q4H PRN Aspirin [Halfprin] Med 07/24/19 09:00 Ordered 81 mg PO DAILY Docusate Sodium [Colace] Med 07/24/19 09:00 Ordered 100 mg PO TID Ezetimibe [Zetia] Med 07/24/19 21:00 Ordered 10 mg PO BEDTIME Hydrocortisone Med 07/24/19 07:00 Ordered 20 mg PO 0700,1430 Iron [Iron] Med 07/24/19 09:00 Ordered 65 mg PO DAILY Isosorbide Mononitrate [Imdur] Med 07/24/19 09:00 Ordered 30 mg PO BID Levothyroxine Med 07/24/19 06:00 Ordered 175 mcg PO ACBREAKFAST Magnesium Oxide [Magnesium Oxide] Med 07/24/19 09:00 Ordered 210 mg PO DAILY Nitroglycerin [Nitrostat] Med 07/23/19 22:02 Ordered 0.4 mg SL ASDIRECTED PRN Omeprazole Med 07/24/19 09:00 Ordered 40 mg PO DAILY Ondansetron [Zofran] Med 07/23/19 22:08 Ordered 4 mg IV Q4H PRN Polyethylene Glycol 3350 [MiraLAX] Med 07/23/19 22:08 Ordered 17 gm PO DAILY PRN Rivaroxaban [Xarelto] Med 07/24/19 09:00 Ordered 10 mg PO DAILY Rosuvastatin [Crestor] Med 07/24/19 21:00 Ordered 40 mg PO BEDTIME Sodium Chloride 0.9% [Normal Saline] 1,000 ml Med 07/23/19 22:15 Ordered IV ASDIRECTED amLODIPine [Norvasc] Med 07/24/19 09:00 Ordered 5 mg PO BID hydroCHLOROthiazide Med 07/24/19 09:00 Ordered 25 mg PO BID Resuscitation Status Routine Resus Stat 07/23/19 22:08 Ordered Medication Orders Acetaminophen/Codeine Phosphate (Tylenol With Codeine No.3 300mg/30mg) 1 - 2 tab PO Q4H PRN PRN Reason: Pain Amlodipine Besylate (Norvasc) 5 mg PO BID [facility] Aspirin (Halfprin) 81 mg PO DAILY [facility] Docusate Sodium (Colace) 100 mg PO TID [facility]UP Ezetimibe (Zetia) 10 mg PO BEDTIME [facility]UP Hydrochlorothiazide (Hydrochlorothiazide) 25 mg PO BID [facility] Isosorbide Mononitrate (Imdur) 30 mg PO BID [facility] Levothyroxine Sodium (Levothyroxine) 175 mcg PO ACBREAKFAST [facility] Nitroglycerin (Nitrostat) 0.4 mg SL ASDIRECTED PRN PRN Reason: Chest Pain Non-Formulary Medication (Hydrocortisone) 20 mg PO 0700,1430 [facility] Non-Formulary Medication (Iron [Iron]) 65 mg PO DAILY [facility] Non-Formulary Medication (Magnesium Oxide [Magnesium Oxide]) 210 mg PO DAILY [facility] Non-Formulary Medication (Omeprazole) 40 mg PO DAILY [facility] Non-Formulary Medication (Rosuvastatin [Crestor]) 40 mg PO BEDTIME [facility] Rivaroxaban (Xarelto) 10 mg PO DAILY [facility] Assessment/Plan Comment:: Assessment * 78-year-old male 7 days postop left knee total arthroplasty admitted for weakness * hyponatremia * 45 pound weight loss * 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 * Hold lisinopril for now. * Tylenol with codeine for pain for his knee surgery. - Mortality Measure Prognosis:: Good
[2019-07-23] MEDS: Sodium Chloride 0.9% 1,000 ML IV SCH (22:53)
[2019-07-23] MEDS: Acetaminophen/Codeine 300-30 MG Tab PO PRN (22:55)
[2019-07-24] MEDS: Acetaminophen/Codeine 300-30 MG Tab PO PRN ×3 (05:45→19:49)
[2019-07-24] MEDS ORDERED: amLODIPine 10 MG Tab PO SCH ×2 (07:00→09:00)
[2019-07-24] MEDS: Polyethylene Glycol 3350 Powder 17 GM Packet PO PRN (07:02)
[2019-07-24] MEDS: Aspirin 81 MG Tab.EC PO SCH (07:02)
[2019-07-24] MEDS: Docusate Sodium 100 MG Cap PO SCH ×3 (07:03→19:48)
[2019-07-24] MEDS: Magnesium Oxide 400 MG Tab PO SCH (07:03)
[2019-07-24] MEDS: Isosorbide Mononitrate 30 MG Tab.ER PO SCH ×2 (07:03→19:48)
[2019-07-24] MEDS: Hydrochlorothiazide 25 MG Tab PO SCH ×2 (07:03→19:47)
[2019-07-24] MEDS: Pantoprazole 40 MG Tab.CR PO SCH (07:06)
--- NOTE | 2019-07-24 07:33 | CR ---
Chest: Portable view of the chest was obtained. Comparison: Prior chest x-ray of 11/20/18. Slight increased density within the left lung base is noted. This most likely represents atelectasis. Mild thickening of the right minor fissure is seen as well as other areas of pleural thickening are noted within the upper right chest. Lungs otherwise are clear. Heart size and mediastinum are normal. Bony structures are grossly intact. Old healed left upper rib fracture is noted. Impression: 1. Mild left basilar atelectasis. 2. Chronic change within the upper right chest. 3. Nothing acute is seen. Diagnostic code #2
[2019-07-24] MEDS: Hydrocortisone 20 MG Tab PO SCH ×2 (08:28→15:29)
[2019-07-24] MEDS: Ferrous Sulfate 325 MG Tab PO SCH (10:18)
[2019-07-24] MEDS: Rivaroxaban 10 MG Tab PO SCH (10:18)
--- NOTE | 2019-07-24 10:45 | PCM.PN ---
- General Info Date of Service: 07/24/19 Admission Dx/Problem (Free Text): Admission Diagnosis/Problem Admission Diagnosis/Problem Weakness Functional Status: Reports: Pain Controlled, Tolerating Diet, Ambulating, Urinating. Denies: New Symptoms - Review of Systems General: Reports: Weakness, Fatigue, Malaise. Denies: Fever, Chills HEENT: Reports: No Symptoms. Denies: Headaches, Sore Throat Pulmonary: Reports: No Symptoms. Denies: Shortness of Breath, Pleuritic Chest Pain, Cough, Sputum, Wheezing Cardiovascular: Reports: No Symptoms. Denies: Chest Pain, Palpitations, Edema Gastrointestinal: Reports: No Symptoms. Denies: Abdominal Pain, Constipation, Diarrhea, Nausea, Vomiting Genitourinary: Reports: No Symptoms. Denies: Pain Musculoskeletal: Reports: No Symptoms Skin: Reports: No Symptoms. Denies: Cyanosis Neurological: Reports: Difficulty Walking, Weakness, Gait Disturbance. Denies: Confusion Psychiatric: Reports: No Symptoms - Patient Data Vitals - Most Recent: Last Vital Signs Temp 98.6 F 07/24/19 04:31 Pulse 81 07/24/19 04:31 Resp 16 07/24/19 04:31 BP 96/57 L 07/24/19 07:06 Pulse Ox 98 07/24/19 04:31 Weight - Most Recent: 211 lb 12.8 oz I&O - Last 24 Hours: Intake & Output 07/23/19 07/24/19 07/24/19 22:59 06:59 14:59 Intake Total 781 420 Output Total 450 Balance 331 420 Lab Results Last 24 Hours: Laboratory Results - last 24 hr 07/23/19 07/23/19 07/23/19 Range/Units 19:45 19:45 20:10 WBC 10.05 H (4.23-9.07) K/mm3 RBC 3.48 L (4.63-6.08) M/mm3 Hgb 11.3 L (13.7-17.5) gm/dl Hct 33.7 L (40.1-51.0) % MCV 96.8 H (79.0-92.2) fl MCH 32.5 H (25.7-32.2) pg MCHC 33.5 (32.2-35.5) g/dl RDW Std Deviation 41.5 (35.1-43.9) fL Plt Count 367 H D (163-337) K/mm3 MPV 8.8 L (9.4-12.3) fl Neut % (Auto) 69.4 H (34.0-67.9) % Lymph % (Auto) 15.1 L (21.8-53.1) % [place] % (Auto) 14.3 H (5.3-12.2) % Eos % (Auto) 1.0 (0.8-7.0) Baso % (Auto) 0.2 (0.1-1.2) % Neut # (Auto) 6.97 H (1.78-5.38) K/mm3 Lymph # (Auto) 1.52 (1.32-3.57) K/mm3 [place] # (Auto) 1.44 H (0.30-0.82) K/mm3 Eos # (Auto) 0.10 (0.04-0.54) K/mm3 Baso # (Auto) 0.02 (0.01-0.08) K/mm3 Sodium 131 L (136-145) mEq/L Potassium 3.9 (3.5-5.1) mEq/L Chloride 94 L (98-107) mEq/L Carbon Dioxide 30 (21-32) mEq/L Anion Gap 10.9 (5-15) BUN 29 H (7-18) mg/dL Creatinine 1.3 (0.7-1.3) mg/dL Est Cr Clr Drug Dosing 47.57 mL/min Estimated GFR (MDRD) 53 (>60) mL/min BUN/Creatinine Ratio 22.3 H (14-18) Glucose 122 H (83-115) mg/dL Calcium 9.0 (8.5-10.1) mg/dL Magnesium 1.8 (1.8-2.4) mg/dl Total Bilirubin 0.5 (0.2-1.0) mg/dL AST 24 (15-37) U/L ALT 16 (16-63) U/L Alkaline Phosphatase 78 (46-116) U/L Total Protein 6.6 (6.4-8.2) g/dl Albumin 2.4 L (3.4-5.0) g/dl Globulin 4.2 gm/dL Albumin/Globulin Ratio 0.6 L (1-2) Urine Color Yellow (Yellow) Urine Appearance Clear (Clear) Urine pH 7.0 (5.0-8.0) Ur Specific Center 1.015 (1.005-1.030) Urine Protein Negative (Negative) Urine Glucose (UA) Negative (Negative) Urine Ketones Negative (Negative) Urine Occult Blood Trace-lysed H (Negative) Urine Nitrite Negative (Negative) Urine Bilirubin Negative (Negative) Urine Urobilinogen 0.2 (0.2-1.0) Ur Leukocyte Esterase Negative (Negative) Urine RBC 0-5 (0-5) /hpf Urine WBC 0-5 (0-5) /hpf Ur Squamous Epith Cells Not seen (0-5) /hpf Urine Bacteria Occasional (FEW) /hpf Urine Mucus Few (FEW) /hpf 07/24/19 07/24/19 Range/Units 05:40 05:40 WBC 9.34 H (4.23-9.07) K/mm3 RBC 3.07 L (4.63-6.08) M/mm3 Hgb 9.8 L D (13.7-17.5) gm/dl Hct 29.7 L (40.1-51.0) % MCV 96.7 H (79.0-92.2) fl MCH 31.9 (25.7-32.2) pg MCHC 33.0 (32.2-35.5) g/dl RDW Std Deviation 41.2 (35.1-43.9) fL Plt Count 359 H (163-337) K/mm3 MPV 8.9 L (9.4-12.3) fl Neut % (Auto) 72.0 H (34.0-67.9) % Lymph % (Auto) 17.1 L (21.8-53.1) % [place] % (Auto) 10.7 (5.3-12.2) % Eos % (Auto) 0.1 L (0.8-7.0) Baso % (Auto) 0.1 (0.1-1.2) % Neut # (Auto) 6.72 H (1.78-5.38) K/mm3 Lymph # (Auto) 1.60 (1.32-3.57) K/mm3 [place] # (Auto) 1.00 H (0.30-0.82) K/mm3 Eos # (Auto) 0.01 L (0.04-0.54) K/mm3 Baso # (Auto) 0.01 (0.01-0.08) K/mm3 Sodium 132 L (136-145) mEq/L Potassium 4.2 (3.5-5.1) mEq/L Chloride 96 L (98-107) mEq/L Carbon Dioxide 29 (21-32) mEq/L Anion Gap 11.2 (5-15) BUN 26 H (7-18) mg/dL Creatinine 1.2 (0.7-1.3) mg/dL Est Cr Clr Drug Dosing 51.54 mL/min Estimated GFR (MDRD) 58 (>60) mL/min BUN/Creatinine Ratio 21.7 H (14-18) Glucose 114 (83-115) mg/dL Calcium 8.7 (8.5-10.1) mg/dL Magnesium 1.7 L (1.8-2.4) mg/dl Total Bilirubin 0.5 (0.2-1.0) mg/dL AST 21 (15-37) U/L ALT 14 L (16-63) U/L Alkaline Phosphatase 69 (46-116) U/L Total Protein 5.8 L (6.4-8.2) g/dl Albumin 2.1 L (3.4-5.0) g/dl Globulin 3.7 gm/dL Albumin/Globulin Ratio 0.6 L (1-2) Urine Color (Yellow) Urine Appearance (Clear) Urine pH (5.0-8.0) Ur Specific Center (1.005-1.030) Urine Protein (Negative) Urine Glucose (UA) (Negative) Urine Ketones (Negative) Urine Occult Blood (Negative) Urine Nitrite (Negative) Urine Bilirubin (Negative) Urine Urobilinogen (0.2-1.0) Ur Leukocyte Esterase (Negative) Urine RBC (0-5) /hpf Urine WBC (0-5) /hpf Ur Squamous Epith Cells (0-5) /hpf Urine Bacteria (FEW) /hpf Urine Mucus (FEW) /hpf Med Orders - Current: Current Medications Acetaminophen (Tylenol) 650 mg PO Q4H PRN PRN Reason: Pain (Mild 1-3)/fever Acetaminophen/Codeine Phosphate (Tylenol With Codeine No.3 300mg/30mg) 1 - 2 tab PO Q4H PRN PRN Reason: Pain Last Admin: 07/24/19 05:45 Dose: 2 tab Amlodipine Besylate (Norvasc) 5 mg PO BID@0700,1900 [facility] Aspirin (Halfprin) 81 mg PO DAILY@0700 [facility] Last Admin: 07/24/19 07:02 Dose: 81 mg Docusate Sodium (Colace) 100 mg PO TID@0700,1400,1900 [facility] Last Admin: 07/24/19 07:03 Dose: 100 mg Ezetimibe (Zetia) 10 mg PO BEDTIME@1900 [facility] Ferrous Sulfate (Ferrous Sulfate) 325 mg PO DAILY [facility] Last Admin: 07/24/19 10:18 Dose: 325 mg Hydrochlorothiazide (Hydrochlorothiazide) 25 mg PO BID@0700,1900 [facility] Last Admin: 07/24/19 07:03 Dose: 25 mg Hydrocortisone (Cortef) 20 mg PO 0700,1430 [facility] Last Admin: 07/24/19 08:28 Dose: 20 mg Sodium Chloride (Normal Saline) 1,000 mls @ 75 mls/hr IV ASDIRECTED [facility] Last Admin: 07/23/19 22:53 Dose: 75 mls/hr Isosorbide Mononitrate (Imdur) 30 mg PO BID@0700,1900 [facility] Last Admin: 07/24/19 07:03 Dose: 30 mg Levothyroxine Sodium (Levothyroxine) 175 mcg PO ACBREAKFAST [facility] Last Admin: 07/24/19 05:40 Dose: 175 mcg Magnesium Oxide (Magnesium Oxide) 400 mg PO DAILY@0700 [facility] Last Admin: 07/24/19 07:03 Dose: 400 mg Nitroglycerin (Nitrostat) 0.4 mg SL ASDIRECTED PRN PRN Reason: Chest Pain Ondansetron HCl (Zofran) 4 mg IV Q4H PRN PRN Reason: Nausea/Vomiting Pantoprazole Sodium (Protonix) 40 mg PO DAILY@0700 [facility] Last Admin: 07/24/19 07:06 Dose: 40 mg Polyethylene Glycol (Miralax) 17 gm PO DAILY PRN PRN Reason: Constipation Last Admin: 07/24/19 07:02 Dose: 17 gm Rivaroxaban (Xarelto) 10 mg PO DAILY [facility] Last Admin: 07/24/19 10:18 Dose: 10 mg Rosuvastatin Calcium (Crestor) 40 mg PO BEDTIME@1900 [facility] Discontinued Medications Amlodipine Besylate (Norvasc) 5 mg PO BID [facility] Amlodipine Besylate (Norvasc) 5 mg PO BID@0700,1900 [facility] Last Admin: 07/24/19 07:06 Dose: Not Given Lactated Ringer's (Ringers, Lactated) 1,000 mls @ 999 mls/hr IV .BOLUS ONE Stop: 07/23/19 20:34 Last Admin: 07/23/19 19:54 Dose: 999 mls/hr Lactated Ringer's (Ringers, Lactated) 1,000 mls @ 125 mls/hr IV ASDIRECTED [facility] Last Admin: 07/23/19 21:22 Dose: 125 mls/hr - Exam Quality Assessment: DVT Prophylaxis General: Alert, Oriented, Cooperative, No Acute Distress HEENT: Pupils Equal, Pupils Reactive, EOMI, Mucous Membr. Moist/[place] Neck: Supple, Trachea Midline Lungs: Clear to Auscultation, Normal Respiratory Effort Cardiovascular: Regular Rate, Regular Rhythm GI/Abdominal Exam: Normal Bowel Sounds, Soft, Non-Tender, No Distention, No Abnormal Bruit (Male) Exam: Deferred Back Exam: Normal Inspection, Full Range of Motion Extremities: Normal Inspection, Normal Range of Motion, No Pedal Edema, Other ( Bandage on left knee ) Peripheral Pulses: 2+: Radial (L), Radial (R), Dorsalis Pedis (L), Dorsalis Pedis (R) Skin: Warm, Dry, Intact Wound/Incisions: Dressing Dry and Intact Neurological: No New Focal Deficit Psy/Mental Status: Alert, Normal Affect, Normal Mood - Problem List & Annotations (1) Generalized weakness SNOMED Code(s): 92228707 Code(s): R53.1 - WEAKNESS Status: Acute Priority: High Current Visit: Yes (2) Hyponatremia SNOMED Code(s): 21236057 Code(s): E87.1 - HYPO-OSMOLALITY AND HYPONATREMIA Status: Acute Priority : High Current Visit: Yes (3) Coronary artery disease SNOMED Code(s): 59004092 Code(s): I25.10 - ATHSCL HEART DISEASE OF [place] CORONARY ARTERY W/O ANG PCTRS Status: Chronic Priority: Medium Current Visit: No Qualifiers: Coronary Disease-Associated Artery/Lesion type: unspecified vessel or lesion type [place] vs. transplanted heart: unspecified whether [place] or transplanted heart Associated angina: angina presence unspecified Qualified Code(s): I25.10 - Atherosclerotic heart disease of [place] coronary artery without angina pectoris (4) Hyperlipidemia SNOMED Code(s): 27500482 Code(s): E78.5 - HYPERLIPIDEMIA, UNSPECIFIED Status: Chronic Priority: Low Current Visit: No Qualifiers: Hyperlipidemia type: unspecified Qualified Code(s): E78.5 - Hyperlipidemia , unspecified (5) Hypertension SNOMED Code(s): 44356568 Code(s): I10 - ESSENTIAL (PRIMARY) HYPERTENSION Status: Chronic Priority : Low Current Visit: No Qualifiers: Hypertension type: unspecified Qualified Code(s): I10 - Essential (primary ) hypertension (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 Code(s): E23.0 - HYPOPITUITARISM Status: Chronic Priority: Medium Current Visit: No (7) S/P total knee arthroplasty SNOMED Code(s): 3041607563588, 271142803, 6918519762667 Code(s): Z96.659 - PRESENCE OF UNSPECIFIED ARTIFICIAL KNEE JOINT Status: Chronic Priority: Medium Current Visit: No Qualifiers: Laterality: right Qualified Code(s): Z96.651 - Presence of right artificial knee joint (8) Hypomagnesemia SNOMED Code(s): 017860661 Code(s): E83.42 - HYPOMAGNESEMIA Status: Acute Current Visit: Yes (9) Iatrogenic hyperthyroidism SNOMED Code(s): 744786024 Code(s): E05.80 - OTHER THYROTOXICOSIS WITHOUT THYROTOXIC CRISIS OR STORM Status: Acute Priority: Medium Current Visit: Yes - Problem List Review Problem List Initiated/Reviewed/Updated: Yes - Plan Plan:: Assessment * 78-year-old male 7 days postop left knee total arthroplasty admitted for weakness * hyponatremia * 45 pound weight loss * 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 * Hold lisinopril for now. * Tylenol with codeine for pain for his knee surgery.
[2019-07-24] MEDS ORDERED: Magnesium Sulfate/Water 2 GM in Premix Bag 1 BAG IV ONE (10:47)
[2019-07-24] MEDS: Sodium Chloride 0.9% 1,000 ML IV SCH (11:44)
[2019-07-24] MEDS: amLODIPine 5 MG Tab PO SCH (19:47)
[2019-07-24] MEDS: Rosuvastatin 10 MG Tab PO SCH (19:48)
[2019-07-24] MEDS: Ezetimibe 10 MG Tab PO SCH (19:48)
[2019-07-25] MEDS: Sodium Chloride 0.9% 1,000 ML IV SCH (00:53)
[2019-07-25] MEDS ORDERED: Levothyroxine 75 MCG Tab PO SCH (06:00)
[2019-07-25] MEDS: Aspirin 81 MG Tab.EC PO SCH (06:41)
[2019-07-25] MEDS: Magnesium Oxide 400 MG Tab PO SCH (06:41)
[2019-07-25] MEDS: Hydrochlorothiazide 25 MG Tab PO SCH ×2 (06:41→19:01)
[2019-07-25] MEDS: Docusate Sodium 100 MG Cap PO SCH ×3 (06:41→19:00)
[2019-07-25] MEDS: Pantoprazole 40 MG Tab.CR PO SCH (06:42)
[2019-07-25] MEDS: Acetaminophen/Codeine 300-30 MG Tab PO PRN ×3 (06:42→21:20)
[2019-07-25] MEDS: amLODIPine 5 MG Tab PO SCH ×2 (06:43→19:00)
[2019-07-25] MEDS: Isosorbide Mononitrate 30 MG Tab.ER PO SCH ×2 (06:44→19:02)
[2019-07-25] MEDS: Hydrocortisone 20 MG Tab PO SCH ×2 (07:42→14:44)
[2019-07-25] MEDS: Ferrous Sulfate 325 MG Tab PO SCH (08:26)
[2019-07-25] MEDS: Rivaroxaban 10 MG Tab PO SCH (08:26)
--- NOTE | 2019-07-25 11:31 | PCM.PN ---
- General Info Date of Service: 07/25/19 Admission Dx/Problem (Free Text): Admission Diagnosis/Problem Admission Diagnosis/Problem Weakness Functional Status: Reports: Pain Controlled, Tolerating Diet, Ambulating, Urinating, Incentive Spirometry. Denies: New Symptoms - Review of Systems General: Reports: Weakness. Denies: Fever, Fatigue, Malaise, Chills HEENT: Reports: No Symptoms. Denies: Headaches, Sore Throat Pulmonary: Reports: No Symptoms. Denies: Shortness of Breath, Cough, Sputum, Wheezing Cardiovascular: Reports: No Symptoms. Denies: Chest Pain, Palpitations, Dyspnea on Exertion, Edema Gastrointestinal: Reports: No Symptoms. Denies: Abdominal Pain, Constipation, Diarrhea, Nausea, Vomiting Genitourinary: Reports: No Symptoms. Denies: Pain Musculoskeletal: Reports: Leg Pain (occasiona 2/ TKA ) Skin: Reports: No Symptoms. Denies: Cyanosis Neurological: Reports: Difficulty Walking, Weakness, Gait Disturbance. Denies: Confusion, Pre-Existing Deficit, Trouble Speaking Psychiatric: Reports: No Symptoms - Patient Data Vitals - Most Recent: Last Vital Signs Temp 98.1 F 07/25/19 08:25 Pulse 83 07/25/19 08:25 Resp 16 07/25/19 08:25 BP 122/63 07/25/19 08:25 Pulse Ox 90 L 07/25/19 08:25 Weight - Most Recent: 200 lb I&O - Last 24 Hours: Intake & Output 07/24/19 07/25/19 07/25/19 22:59 06:59 14:59 Intake Total 2670 1567 180 Output Total 650 1300 Balance 2020 267 180 Lab Results Last 24 Hours: Laboratory Results - last 24 hr 07/24/19 07/24/19 07/25/19 Range/Units 05:40 16:30 04:10 WBC 8.98 (4.23-9.07) K/mm3 RBC 3.13 L (4.63-6.08) M/mm3 Hgb 9.8 L (13.7-17.5) gm/dl Hct 30.6 L (40.1-51.0) % MCV 97.8 H (79.0-92.2) fl MCH 31.3 (25.7-32.2) pg MCHC 32.0 L (32.2-35.5) g/dl RDW Std Deviation 40.5 (35.1-43.9) fL Plt Count 417 H (163-337) K/mm3 MPV 8.7 L (9.4-12.3) fl Neut % (Auto) 58.2 (34.0-67.9) % Lymph % (Auto) 26.5 (21.8-53.1) % [place] % (Auto) 13.4 H (5.3-12.2) % Eos % (Auto) 1.1 (0.8-7.0) Baso % (Auto) 0.1 (0.1-1.2) % Neut # (Auto) 5.23 (1.78-5.38) K/mm3 Lymph # (Auto) 2.38 (1.32-3.57) K/mm3 [place] # (Auto) 1.20 H (0.30-0.82) K/mm3 Eos # (Auto) 0.10 (0.04-0.54) K/mm3 Baso # (Auto) 0.01 (0.01-0.08) K/mm3 Sodium (136-145) mEq/L Potassium (3.5-5.1) mEq/L Chloride (98-107) mEq/L Carbon Dioxide (21-32) mEq/L Anion Gap (5-15) BUN (7-18) mg/dL Creatinine (0.7-1.3) mg/dL Est Cr Clr Drug Dosing mL/min Estimated GFR (MDRD) (>60) mL/min BUN/Creatinine Ratio (14-18) Glucose (83-115) mg/dL Calcium (8.5-10.1) mg/dL Magnesium (1.8-2.4) mg/dl Free T4 1.72 H (0.76-1.46) ng/dL TSH 3rd Generation < 0.007 L (0.358-3.74) uIU/mL 07/25/19 Range/Units 04:10 WBC (4.23-9.07) K/mm3 RBC (4.63-6.08) M/mm3 Hgb (13.7-17.5) gm/dl Hct (40.1-51.0) % MCV (79.0-92.2) fl MCH (25.7-32.2) pg MCHC (32.2-35.5) g/dl RDW Std Deviation (35.1-43.9) fL Plt Count (163-337) K/mm3 MPV (9.4-12.3) fl Neut % (Auto) (34.0-67.9) % Lymph % (Auto) (21.8-53.1) % [place] % (Auto) (5.3-12.2) % Eos % (Auto) (0.8-7.0) Baso % (Auto) (0.1-1.2) % Neut # (Auto) (1.78-5.38) K/mm3 Lymph # (Auto) (1.32-3.57) K/mm3 [place] # (Auto) (0.30-0.82) K/mm3 Eos # (Auto) (0.04-0.54) K/mm3 Baso # (Auto) (0.01-0.08) K/mm3 Sodium 135 L (136-145) mEq/L Potassium 3.5 (3.5-5.1) mEq/L Chloride 98 (98-107) mEq/L Carbon Dioxide 30 (21-32) mEq/L Anion Gap 10.5 (5-15) BUN 26 H (7-18) mg/dL Creatinine 1.1 (0.7-1.3) mg/dL Est Cr Clr Drug Dosing 56.22 mL/min Estimated GFR (MDRD) > 60 (>60) mL/min BUN/Creatinine Ratio 23.6 H (14-18) Glucose 100 (83-115) mg/dL Calcium 8.5 (8.5-10.1) mg/dL Magnesium 2.0 (1.8-2.4) mg/dl Free T4 (0.76-1.46) ng/dL TSH 3rd Generation (0.358-3.74) uIU/mL Med Orders - Current: Current Medications Acetaminophen (Tylenol) 650 mg PO Q4H PRN PRN Reason: Pain (Mild 1-3)/fever Acetaminophen/Codeine Phosphate (Tylenol With Codeine No.3 300mg/30mg) 1 - 2 tab PO Q4H PRN PRN Reason: Pain Last Admin: 07/25/19 06:42 Dose: 1 tab Amlodipine Besylate (Norvasc) 5 mg PO BID@0700,1900 [facility] Last Admin: 07/25/19 06:43 Dose: 5 mg Aspirin (Halfprin) 81 mg PO DAILY@0700 [facility] Last Admin: 07/25/19 06:41 Dose: 81 mg Docusate Sodium (Colace) 100 mg PO TID@0700,1400,1900 [facility] Last Admin: 07/25/19 06:41 Dose: 100 mg Ezetimibe (Zetia) 10 mg PO BEDTIME@1900 [facility] Last Admin: 07/24/19 19:48 Dose: 10 mg Ferrous Sulfate (Ferrous Sulfate) 325 mg PO DAILY [facility] Last Admin: 07/25/19 08:26 Dose: 325 mg Hydrochlorothiazide (Hydrochlorothiazide) 25 mg PO BID@0700,1900 [facility] Last Admin: 07/25/19 06:41 Dose: 25 mg Hydrocortisone (Cortef) 20 mg PO BID@0700,1430 [facility] Sodium Chloride (Normal Saline) 1,000 mls @ 75 mls/hr IV ASDIRECTED [facility] Last Admin: 07/25/19 00:53 Dose: 75 mls/hr Isosorbide Mononitrate (Imdur) 30 mg PO BID@0700,1900 [facility] Last Admin: 07/25/19 06:44 Dose: 30 mg Levothyroxine Sodium (Levothyroxine) 175 mcg PO ACBREAKFAST [facility] Last Admin: 07/25/19 06:06 Dose: 175 mcg Magnesium Oxide (Magnesium Oxide) 400 mg PO DAILY@0700 [facility] Last Admin: 07/25/19 06:41 Dose: 400 mg Nitroglycerin (Nitrostat) 0.4 mg SL ASDIRECTED PRN PRN Reason: Chest Pain Ondansetron HCl (Zofran) 4 mg IV Q4H PRN PRN Reason: Nausea/Vomiting Pantoprazole Sodium (Protonix) 40 mg PO DAILY@0700 [facility] Last Admin: 07/25/19 06:42 Dose: 40 mg Polyethylene Glycol (Miralax) 17 gm PO DAILY PRN PRN Reason: Constipation Last Admin: 07/24/19 07:02 Dose: 17 gm Rivaroxaban (Xarelto) 10 mg PO DAILY [facility] Last Admin: 07/25/19 08:26 Dose: 10 mg Rosuvastatin Calcium (Crestor) 40 mg PO BEDTIME@1900 [facility] Last Admin: 07/24/19 19:48 Dose: 40 mg Discontinued Medications Amlodipine Besylate (Norvasc) 5 mg PO BID [facility] Amlodipine Besylate (Norvasc) 5 mg PO BID@0700,1900 [facility] Last Admin: 07/24/19 07:06 Dose: Not Given Hydrocortisone (Cortef) 20 mg PO 0700,1430 [facility] Last Admin: 07/25/19 07:42 Dose: 20 mg Lactated Ringer's (Ringers, Lactated) 1,000 mls @ 999 mls/hr IV .BOLUS ONE Stop: 07/23/19 20:34 Last Admin: 07/23/19 19:54 Dose: 999 mls/hr Lactated Ringer's (Ringers, Lactated) 1,000 mls @ 125 mls/hr IV ASDIRECTED [facility] Last Admin: 07/23/19 21:22 Dose: 125 mls/hr Magnesium Sulfate 2 gm/ Premix 50 mls @ 25 mls/hr IV ONETIME ONE Stop: 07/24/19 12:46 Last Admin: 07/24/19 11:33 Dose: 25 mls/hr Levothyroxine Sodium (Levothyroxine) 175 mcg PO ACBREAKFAST [facility] Last Admin: 07/24/19 05:40 Dose: 175 mcg Levothyroxine Sodium (Levothyroxine) 150 mcg PO ACBREAKFAST [facility] - Exam Quality Assessment: Supplemental Oxygen, DVT Prophylaxis General: Alert, Oriented, Cooperative, No Acute Distress HEENT: Pupils Equal, Pupils Reactive, EOMI, Mucous Membr. Moist/[place] Neck: Supple, Trachea Midline Lungs: Clear to Auscultation, Normal Respiratory Effort Cardiovascular: Regular Rate, Regular Rhythm GI/Abdominal Exam: Normal Bowel Sounds, Soft, Non-Tender, No Distention, No Abnormal Bruit (Male) Exam: Deferred Back Exam: Normal Inspection, Full Range of Motion Extremities: Normal Range of Motion, No Pedal Edema, Normal Capillary Refill, Leg Pain, Other (Bandage in place on left leg. ) Peripheral Pulses: 2+: Radial (L), Radial (R), Dorsalis Pedis (L), Dorsalis Pedis (R) Skin: Warm, Dry, Intact Neurological: No New Focal Deficit Psy/Mental Status: Alert, Normal Affect, Normal Mood - Problem List & Annotations (1) Generalized weakness SNOMED Code(s): 28017121 Code(s): R53.1 - WEAKNESS Status: Acute Priority: High Current Visit: Yes (2) Hyponatremia SNOMED Code(s): 54607803 Code(s): E87.1 - HYPO-OSMOLALITY AND HYPONATREMIA Status: Acute Priority : High Current Visit: Yes (3) Coronary artery disease SNOMED Code(s): 45047390 Code(s): I25.10 - ATHSCL HEART DISEASE OF [place] CORONARY ARTERY W/O ANG PCTRS Status: Chronic Priority: Medium Current Visit: No Qualifiers: Coronary Disease-Associated Artery/Lesion type: unspecified vessel or lesion type [place] vs. transplanted heart: unspecified whether [place] or transplanted heart Associated angina: angina presence unspecified Qualified Code(s): I25.10 - Atherosclerotic heart disease of [place] coronary artery without angina pectoris (4) Hyperlipidemia SNOMED Code(s): 05574610 Code(s): E78.5 - HYPERLIPIDEMIA, UNSPECIFIED Status: Chronic Priority: Low Current Visit: No Qualifiers: Hyperlipidemia type: unspecified Qualified Code(s): E78.5 - Hyperlipidemia , unspecified (5) Hypertension SNOMED Code(s): 37840368 Code(s): I10 - ESSENTIAL (PRIMARY) HYPERTENSION Status: Chronic Priority : Low Current Visit: No Qualifiers: Hypertension type: unspecified Qualified Code(s): I10 - Essential (primary ) hypertension (6) Panhypopituitarism SNOMED Code(s): 57651053 Code(s): E23.0 - HYPOPITUITARISM Status: Chronic Priority: Medium Current Visit: No (7) S/P total knee arthroplasty SNOMED Code(s): 6463857456516, 423934081, 3094457513854 Code(s): Z96.659 - PRESENCE OF UNSPECIFIED ARTIFICIAL KNEE JOINT Status: Chronic Priority: Medium Current Visit: No Qualifiers: Laterality: right Qualified Code(s): Z96.651 - Presence of right artificial knee joint (8) Hypomagnesemia SNOMED Code(s): 482332921 Code(s): E83.42 - HYPOMAGNESEMIA Status: Acute Current Visit: Yes (9) Iatrogenic hyperthyroidism SNOMED Code(s): 027027900 Code(s): E05.80 - OTHER THYROTOXICOSIS WITHOUT THYROTOXIC CRISIS OR STORM Status: Acute Priority: Medium Current Visit: Yes - Problem List Review Problem List Initiated/Reviewed/Updated: Yes - My Orders Last 24 Hours: My Active Orders 07/24/19 10:46 Consult to Case Management/Agricultural Lender [CONS] Routine 07/24/19 16:30 FREE T3 [REF] Routine 07/25/19 06:00 Levothyroxine 175 mcg PO ACBREAKFAST 07/26/19 05:11 BASIC METABOLIC PANEL,BMP [CHEM] AM CBC WITH AUTO DIFF [HEME] AM MAGNESIUM [CHEM] AM 07/27/19 05:11 BASIC METABOLIC PANEL,BMP [CHEM] AM CBC WITH AUTO DIFF [HEME] AM MAGNESIUM [CHEM] AM 07/28/19 05:11 BASIC METABOLIC PANEL,BMP [CHEM] AM CBC WITH AUTO DIFF [HEME] AM MAGNESIUM [CHEM] AM - Plan Plan:: Assessment * 78-year-old male 7 days postop left knee total arthroplasty admitted for weakness * hyponatremia; improving * 45 pound weight loss * 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 * Hold lisinopril for now. * Tylenol with codeine for pain for his knee surgery. * Pending placement
[2019-07-25] MEDS: Ezetimibe 10 MG Tab PO SCH (19:01)
[2019-07-25] MEDS: Rosuvastatin 10 MG Tab PO SCH (19:01)
[2019-07-26] MEDS: Acetaminophen/Codeine 300-30 MG Tab PO PRN ×4 (02:44→20:50)
[2019-07-26] MEDS: Hydrochlorothiazide 25 MG Tab PO SCH ×2 (07:05→18:46)
[2019-07-26] MEDS: Magnesium Oxide 400 MG Tab PO SCH (07:05)
[2019-07-26] MEDS: Isosorbide Mononitrate 30 MG Tab.ER PO SCH ×2 (07:06→18:45)
[2019-07-26] MEDS: Docusate Sodium 100 MG Cap PO SCH ×3 (07:06→18:45)
[2019-07-26] MEDS: Pantoprazole 40 MG Tab.CR PO SCH (07:06)
[2019-07-26] MEDS: amLODIPine 5 MG Tab PO SCH ×2 (07:06→18:46)
[2019-07-26] MEDS: Aspirin 81 MG Tab.EC PO SCH (07:06)
[2019-07-26] MEDS: Hydrocortisone 20 MG Tab PO SCH ×2 (07:06→14:59)
[2019-07-26] MEDS: Ferrous Sulfate 325 MG Tab PO SCH (08:10)
[2019-07-26] MEDS: Rivaroxaban 10 MG Tab PO SCH (08:10)
--- NOTE | 2019-07-26 08:39 | PCM.PN ---
- General Info Date of Service: 07/26/19 Admission Dx/Problem (Free Text): Admission Diagnosis/Problem Admission Diagnosis/Problem Weakness Functional Status: Reports: Pain Controlled, Tolerating Diet, Ambulating, Urinating, Incentive Spirometry. Denies: New Symptoms - Review of Systems General: Reports: Weakness (improved ). Denies: Fever, Fatigue, Malaise, Chills HEENT: Reports: No Symptoms. Denies: Headaches, Sore Throat Pulmonary: Reports: No Symptoms. Denies: Shortness of Breath, Cough, Sputum, Wheezing Cardiovascular: Reports: No Symptoms. Denies: Chest Pain, Palpitations, Dyspnea on Exertion, Lightheadedness Gastrointestinal: Reports: No Symptoms. Denies: Abdominal Pain, Constipation, Diarrhea, Nausea, Vomiting Genitourinary: Reports: No Symptoms. Denies: Pain Musculoskeletal: Reports: Joint Pain Skin: Reports: No Symptoms. Denies: Cyanosis Neurological: Reports: Difficulty Walking, Weakness, Gait Disturbance. Denies: Confusion, Dizziness, Trouble Speaking Psychiatric: Reports: No Symptoms - Patient Data Vitals - Most Recent: Last Vital Signs Temp 97.5 F 07/26/19 02:55 Pulse 82 07/26/19 02:55 Resp 16 07/26/19 02:55 BP 126/84 07/26/19 07:06 Pulse Ox 94 L 07/26/19 02:55 Weight - Most Recent: 211 lb 3.2 oz I&O - Last 24 Hours: Intake & Output 07/25/19 07/26/19 07/26/19 22:59 06:59 14:59 Intake Total 1110 1200 Output Total 1250 1600 Balance -140 -400 Lab Results Last 24 Hours: Laboratory Results - last 24 hr 07/24/19 07/26/19 07/26/19 Range/Units 16:30 05:50 05:50 WBC 9.39 H (4.23-9.07) K/mm3 RBC 3.15 L (4.63-6.08) M/mm3 Hgb 9.8 L (13.7-17.5) gm/dl Hct 31.0 L (40.1-51.0) % MCV 98.4 H (79.0-92.2) fl MCH 31.1 (25.7-32.2) pg MCHC 31.6 L (32.2-35.5) g/dl RDW Std Deviation 41.5 (35.1-43.9) fL Plt Count 486 H (163-337) K/mm3 MPV 8.5 L (9.4-12.3) fl Neut % (Auto) 57.1 (34.0-67.9) % Lymph % (Auto) 28.1 (21.8-53.1) % [place] % (Auto) 12.8 H (5.3-12.2) % Eos % (Auto) 1.1 (0.8-7.0) Baso % (Auto) 0.2 (0.1-1.2) % Neut # (Auto) 5.36 (1.78-5.38) K/mm3 Lymph # (Auto) 2.64 (1.32-3.57) K/mm3 [place] # (Auto) 1.20 H (0.30-0.82) K/mm3 Eos # (Auto) 0.10 (0.04-0.54) K/mm3 Baso # (Auto) 0.02 (0.01-0.08) K/mm3 Sodium 134 L (136-145) mEq/L Potassium 3.6 (3.5-5.1) mEq/L Chloride 98 (98-107) mEq/L Carbon Dioxide 32 (21-32) mEq/L Anion Gap 7.6 (5-15) BUN 27 H (7-18) mg/dL Creatinine 1.1 (0.7-1.3) mg/dL Est Cr Clr Drug Dosing 56.36 mL/min Estimated GFR (MDRD) > 60 (>60) mL/min BUN/Creatinine Ratio 24.5 H (14-18) Glucose 95 (83-115) mg/dL Calcium 8.7 (8.5-10.1) mg/dL Magnesium 1.7 L (1.8-2.4) mg/dl Free T3 pg/mL 1.94 L (2.50-3.90) pg/mL Med Orders - Current: Current Medications Acetaminophen (Tylenol) 650 mg PO Q4H PRN PRN Reason: Pain (Mild 1-3)/fever Acetaminophen/Codeine Phosphate (Tylenol With Codeine No.3 300mg/30mg) 1 - 2 tab PO Q4H PRN PRN Reason: Pain Last Admin: 07/26/19 07:09 Dose: 2 tab Amlodipine Besylate (Norvasc) 5 mg PO BID@0700,1900 [facility] Last Admin: 07/26/19 07:06 Dose: 5 mg Aspirin (Halfprin) 81 mg PO DAILY@0700 [facility] Last Admin: 07/26/19 07:06 Dose: 81 mg Docusate Sodium (Colace) 100 mg PO TID@0700,1400,1900 [facility] Last Admin: 07/26/19 07:06 Dose: 100 mg Ezetimibe (Zetia) 10 mg PO BEDTIME@1900 [facility] Last Admin: 07/25/19 19:01 Dose: 10 mg Ferrous Sulfate (Ferrous Sulfate) 325 mg PO DAILY [facility] Last Admin: 07/26/19 08:10 Dose: 325 mg Hydrochlorothiazide (Hydrochlorothiazide) 25 mg PO BID@0700,1900 [facility] Last Admin: 07/26/19 07:05 Dose: 25 mg Hydrocortisone (Cortef) 20 mg PO BID@0700,1430 [facility] Last Admin: 07/26/19 07:06 Dose: 20 mg Isosorbide Mononitrate (Imdur) 30 mg PO BID@0700,1900 [facility] Last Admin: 07/26/19 07:06 Dose: 30 mg Levothyroxine Sodium (Levothyroxine) 175 mcg PO ACBREAKFAST [facility] Last Admin: 07/26/19 06:12 Dose: 175 mcg Magnesium Oxide (Magnesium Oxide) 400 mg PO DAILY@0700 [facility] Last Admin: 07/26/19 07:05 Dose: 400 mg Nitroglycerin (Nitrostat) 0.4 mg SL ASDIRECTED PRN PRN Reason: Chest Pain Ondansetron HCl (Zofran) 4 mg IV Q4H PRN PRN Reason: Nausea/Vomiting Pantoprazole Sodium (Protonix) 40 mg PO DAILY@0700 [facility] Last Admin: 07/26/19 07:06 Dose: 40 mg Polyethylene Glycol (Miralax) 17 gm PO DAILY PRN PRN Reason: Constipation Last Admin: 07/24/19 07:02 Dose: 17 gm Rivaroxaban (Xarelto) 10 mg PO DAILY [facility] Last Admin: 07/26/19 08:10 Dose: 10 mg Rosuvastatin Calcium (Crestor) 40 mg PO BEDTIME@1900 [facility] Last Admin: 07/25/19 19:01 Dose: 40 mg Discontinued Medications Amlodipine Besylate (Norvasc) 5 mg PO BID [facility] Amlodipine Besylate (Norvasc) 5 mg PO BID@0700,1900 [facility] Last Admin: 07/24/19 07:06 Dose: Not Given Hydrocortisone (Cortef) 20 mg PO 0700,1430 [facility] Last Admin: 07/25/19 07:42 Dose: 20 mg Lactated Ringer's (Ringers, Lactated) 1,000 mls @ 999 mls/hr IV .BOLUS ONE Stop: 07/23/19 20:34 Last Admin: 07/23/19 19:54 Dose: 999 mls/hr Lactated Ringer's (Ringers, Lactated) 1,000 mls @ 125 mls/hr IV ASDIRECTED [facility] Last Admin: 07/23/19 21:22 Dose: 125 mls/hr Sodium Chloride (Normal Saline) 1,000 mls @ 75 mls/hr IV ASDIRECTED [facility] Last Admin: 07/25/19 00:53 Dose: 75 mls/hr Magnesium Sulfate 2 gm/ Premix 50 mls @ 25 mls/hr IV ONETIME ONE Stop: 07/24/19 12:46 Last Admin: 07/24/19 11:33 Dose: 25 mls/hr Levothyroxine Sodium (Levothyroxine) 175 mcg PO ACBREAKFAST [facility] Last Admin: 07/24/19 05:40 Dose: 175 mcg Levothyroxine Sodium (Levothyroxine) 150 mcg PO ACBREAKFAST [facility] - Exam Quality Assessment: DVT Prophylaxis General: Alert, Oriented, Cooperative, No Acute Distress HEENT: Pupils Equal, Pupils Reactive, EOMI, Mucous Membr. Moist/[place] Neck: Supple, Trachea Midline, No JVD Lungs: Clear to Auscultation, Normal Respiratory Effort Cardiovascular: Regular Rate, Regular Rhythm GI/Abdominal Exam: Normal Bowel Sounds, Soft, Non-Tender, No Distention, No Abnormal Bruit (Male) Exam: Deferred Back Exam: Normal Inspection, Full Range of Motion Extremities: Normal Inspection, Normal Range of Motion, Non-Tender, No Pedal Edema, Normal Capillary Refill Peripheral Pulses: 2+: Radial (L), Radial (R), Dorsalis Pedis (L), Dorsalis Pedis (R) Skin: Warm, Dry, Intact Wound/Incisions: Dressing Dry and Intact Neurological: No New Focal Deficit Psy/Mental Status: Alert, Normal Affect, Normal Mood - Problem List & Annotations (1) Generalized weakness SNOMED Code(s): 16970422 Code(s): R53.1 - WEAKNESS Status: Acute Priority: High Current Visit: Yes (2) Hyponatremia SNOMED Code(s): 71279175 Code(s): E87.1 - HYPO-OSMOLALITY AND HYPONATREMIA Status: Acute Priority : High Current Visit: Yes (3) Coronary artery disease SNOMED Code(s): 48412954 Code(s): I25.10 - ATHSCL HEART DISEASE OF [place] CORONARY ARTERY W/O ANG PCTRS Status: Chronic Priority: Medium Current Visit: No Qualifiers: Coronary Disease-Associated Artery/Lesion type: unspecified vessel or lesion type [place] vs. transplanted heart: unspecified whether [place] or transplanted heart Associated angina: angina presence unspecified Qualified Code(s): I25.10 - Atherosclerotic heart disease of [place] coronary artery without angina pectoris (4) Hyperlipidemia SNOMED Code(s): 13836465 Code(s): E78.5 - HYPERLIPIDEMIA, UNSPECIFIED Status: Chronic Priority: Low Current Visit: No Qualifiers: Hyperlipidemia type: unspecified Qualified Code(s): E78.5 - Hyperlipidemia , unspecified (5) Hypertension SNOMED Code(s): 20855362 Code(s): I10 - ESSENTIAL (PRIMARY) HYPERTENSION Status: Chronic Priority : Low Current Visit: No Qualifiers: Hypertension type: unspecified Qualified Code(s): I10 - Essential (primary ) hypertension (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 Code(s): E23.0 - HYPOPITUITARISM Status: Chronic Priority: Medium Current Visit: No (7) S/P total knee arthroplasty SNOMED Code(s): 4822434632589, 807209551, 8528832435561 Code(s): Z96.659 - PRESENCE OF UNSPECIFIED ARTIFICIAL KNEE JOINT Status: Chronic Priority: Medium Current Visit: No Qualifiers: Laterality: right Qualified Code(s): Z96.651 - Presence of right artificial knee joint (8) Hypomagnesemia SNOMED Code(s): 868433253 Code(s): E83.42 - HYPOMAGNESEMIA Status: Acute Current Visit: Yes (9) Iatrogenic hyperthyroidism SNOMED Code(s): 058013942 Code(s): E05.80 - OTHER THYROTOXICOSIS WITHOUT THYROTOXIC CRISIS OR STORM Status: Acute Priority: Medium Current Visit: Yes - Problem List Review Problem List Initiated/Reviewed/Updated: Yes - My Orders Last 24 Hours: My Active Orders 07/27/19 05:11 BASIC METABOLIC PANEL,BMP [CHEM] AM CBC WITH AUTO DIFF [HEME] AM MAGNESIUM [CHEM] AM 07/28/19 05:11 BASIC METABOLIC PANEL,BMP [CHEM] AM CBC WITH AUTO DIFF [HEME] AM MAGNESIUM [CHEM] AM - Plan Plan:: Assessment * 78-year-old male 7 days postop left knee total arthroplasty admitted for weakness * hyponatremia; improving * 45 pound weight loss - intentional utilizing keto diet * 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 * Hold lisinopril for now. * Tylenol with codeine for pain for his knee surgery. * Discharge Pending placement
[2019-07-26] MEDS ORDERED: Magnesium Sulfate/Water 4 GM in Premix Bag 1 BAG IV ONE ×2 (09:02→09:15)
[2019-07-26] MEDS: Rosuvastatin 10 MG Tab PO SCH (18:45)
[2019-07-26] MEDS: Ezetimibe 10 MG Tab PO SCH (18:46)
[2019-07-27] MEDS: Polyethylene Glycol 3350 Powder 17 GM Packet PO PRN (06:03)
[2019-07-27] MEDS: Pantoprazole 40 MG Tab.CR PO SCH (06:04)
[2019-07-27] MEDS: Hydrocortisone 20 MG Tab PO SCH (06:33)
[2019-07-27] MEDS: Isosorbide Mononitrate 30 MG Tab.ER PO SCH (06:33)
[2019-07-27] MEDS: Magnesium Oxide 400 MG Tab PO SCH (06:34)
[2019-07-27] MEDS: Hydrochlorothiazide 25 MG Tab PO SCH (06:34)
[2019-07-27] MEDS: Aspirin 81 MG Tab.EC PO SCH (06:35)
[2019-07-27] MEDS: amLODIPine 5 MG Tab PO SCH (06:36)
[2019-07-27] MEDS: Docusate Sodium 100 MG Cap PO SCH (06:36)
[2019-07-27] MEDS: Rivaroxaban 10 MG Tab PO SCH (08:23)
[2019-07-27] MEDS: Ferrous Sulfate 325 MG Tab PO SCH (08:23)
[2019-07-27 09:47] VITALS: BP 136/59; PULSE 81
--- NOTE | 2019-07-27 10:43 | PCM.DCSUM1 ---
Discharge Summary - Hospital Course HPI Initial Comments: 78-year-old male post left total knee arthroplasty 7 days ago presents to the emergency room with worsening weakness. 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 Patient apparently did very well postop from his knee surgery, but when he got home he slowly and progressively got weaker. As he became weaker he got up and walked less and ultimately started missing his medications. Patient is on pituitary replacement, therefore missing medications can make him severely weak. Patient then in addition to missing his medications stopped drinking and eating as much worsening his symptoms. Patient also has had a 45 pound weight loss since November, he was not clear if that was intentional or not. Patient also thinks that his lisinopril is causing confusion and difficulty concentration. He recently had his medications reduced because of this by his manager r d. In the emergency room he did receive 1 L of LR. Labs: CBC 10.05, hemoglobin 11.3 , platelets 367, sodium 131, potassium 3.9, BUN 29, creatinine 1.3. I needs in level I.8. Chest x-ray showed poor inspiration but otherwise negative. It was felt patient would benefit from hospitalization, treatment of his hypovolemia and hyponatremia, and possible placement at a [place] [facility] facility for rehabilitation on his left total knee replacement. Diagnosis: Stroke: No - Discharge Data Discharge Date: 07/27/19 (Admit date: 07/23/19) Discharge Disposition: DC/Tfer to SNF 03 Condition: Good - Referral to Home Health Primary Care Physician: Anoop Shaw MD - Discharge Diagnosis/Problem(s) (1) Generalized weakness SNOMED Code(s): 27248320 ICD Code: R53.1 - WEAKNESS Status: Acute Priority: High Current Visit: Yes (2) Hyponatremia SNOMED Code(s): 33477286 ICD Code: E87.1 - HYPO-OSMOLALITY AND HYPONATREMIA Status: Acute Priority : High Current Visit: Yes (3) Coronary artery disease SNOMED Code(s): 59206306 ICD Code: I25.10 - ATHSCL HEART DISEASE OF [place] CORONARY ARTERY W/O ANG PCTRS Status: Chronic Priority: Medium Current Visit: No Qualifiers: Coronary Disease-Associated Artery/Lesion type: unspecified vessel or lesion type [place] vs. transplanted heart: unspecified whether [place] or transplanted heart Associated angina: angina presence unspecified Qualified Code(s): I25.10 - Atherosclerotic heart disease of [place] coronary artery without angina pectoris (4) Hyperlipidemia SNOMED Code(s): 09980309 ICD Code: E78.5 - HYPERLIPIDEMIA, UNSPECIFIED Status: Chronic Priority: Low Current Visit: No Qualifiers: Hyperlipidemia type: unspecified Qualified Code(s): E78.5 - Hyperlipidemia , unspecified (5) Hypertension SNOMED Code(s): 99756557 ICD Code: I10 - ESSENTIAL (PRIMARY) HYPERTENSION Status: Chronic Priority : Low Current Visit: No Qualifiers: Hypertension type: unspecified Qualified Code(s): I10 - Essential (primary ) hypertension (6) Panhypopituitarism SNOMED Code(s): 77148116 ICD Code: E23.0 - HYPOPITUITARISM Status: Chronic Priority: Medium Current Visit: No (7) S/P total knee arthroplasty SNOMED Code(s): 3618432116774, 624161365, 5830598304800 ICD Code: Z96.659 - PRESENCE OF UNSPECIFIED ARTIFICIAL KNEE JOINT Status: Chronic Priority: Medium Current Visit: No Qualifiers: Laterality: right Qualified Code(s): Z96.651 - Presence of right artificial knee joint (8) Hypomagnesemia SNOMED Code(s): 313629358 ICD Code: E83.42 - HYPOMAGNESEMIA Status: Acute Current Visit: Yes - Patient Summary/Data Consults: Consultations 07/23/19 22:08 Consult to [employer] Supervisor [CONS] Routine OT Evaluation and Treatment [CONS] Routine PT Evaluation and Treatment [CONS] Routine 07/24/19 10:46 Consult to Case Management/Construction Consultant [CONS] Routine Labs Pending at D/C: None Recommended Follow-up Testing/Procedures: Follow-up with PCP within 7-10 days of discharge, sooner if needed. Follow-up with Dr. Landis's office as scheduled. Hospital Course: Mr. Perez was admitted for weakness and did work with PT/OT. They're very familiar with the patient is able working with him since his surgery and have worked with him on prior surgeries. They report there is been some issues with noncompliance and lack of motivation in the past and with this current surgery rehabilitation. They're recommending SNF placement for rehabilitation stay. He was noted to be hyponatremic so a slow and S infusion was given which did bump his sodium up to the low to 135. Patient reports he has been hyponatremic for some time. His magnesium was noted to be low and was supplemented. Cortisol was obtained and was 5.9. Free T3 was 1.94 and free T4 was 1.72. There was some questionable reporting that the patient did miss some doses of his medications. Findings with Dr. Cantu, hospitalist regional coordinator and she agrees that it is likely best to let the patient level off with his medications and these levels can be followed up with by the patient's primary care provider. TSH was obtained but obviously with the panhypopituitary is him this will not be a valid number. He did utilize incentive spirometer while here was instructed to continue that until he is more mobile. He had reported weight loss but states he has been utilizing the keto diet. Our dietitian did see him and recommended a multivitamin which she will be discharged home on. Other than this, all home medications were continued. His knee dressing was changed per recommendation from Dr. Moraes. He continues to utilize a cooling pack on his knee. He was discharged today. He was started to follow-up with his primary care provider within 7-10 days of discharge and Dr. Lamar's office per his prior schedule. He should continue PT/OT at the [facility]. He was discharged to [facility] for a rehabilitation stay today. He was instructed to contact his primary care provider or return to the emergency room should symptoms return or worsen. - Patient Instructions Diet: Heart Healthy Diet Activity: As Tolerated Activity, Other: As directed by PT and Dr. Landis's office Driving: Do Not Drive Showering/Bathing: May Shower Notify Provider of: Fever, Increased Pain, Swelling and Redness, Nausea and/or Vomiting Other/Special Instructions: Follow-up with your primary care provider within 7- 10 days of discharge. Follow-up with Dr. Landis's office as directed on your surgical discharge instructions. Continue PT/OT at SNF. Start a multivitain as prescribed. Continue all home medications as prescribed. Should symptoms return or worsen contact your primary care provider or return to the Emergency Department. - Discharge Plan *PRESCRIPTION DRUG MONITORING PROGRAM REVIEWED*: Not Applicable *COPY OF PRESCRIPTION DRUG MONITORING REPORT IN PATIENT DA: Not Applicable Prescriptions/Med Rec: Multivitamin [Daily Multiple Vitamin] 1 each PO DAILY #30 tablet Home Medications: Home Meds Isosorbide Mononitrate [Isosorbide Mononitrate ER] 30 mg PO BID 08/15/15 [ History] Levothyroxine Sodium [Synthroid] 175 mcg PO ACBREAKFAST 08/15/15 [History] Nitroglycerin [Nitrostat] 1 tab SL ASDIRECTED PRN 08/15/15 [History] Rosuvastatin [Crestor] 40 mg PO BEDTIME 08/15/15 [History] Ubidecarenone [Co Q-10] 100 mg PO DAILY 08/15/15 [History] Aspirin [Halfprin] 81 mg PO DAILY 02/23/17 [History] Omeprazole 40 mg PO DAILY 02/24/17 [History] Ezetimibe [Zetia] 10 mg PO BEDTIME 07/15/19 [History] Hydrocortisone [Cortef] 20 mg PO 0700,1430 07/15/19 [History] Lisinopril 2.5 mg PO DAILY 07/15/19 [History] Ranitidine [Zantac] 150 mg PO BID 07/16/19 [History] hydroCHLOROthiazide [Hydrochlorothiazide] 25 mg PO BID 07/16/19 [History] Acetaminophen/Codeine [Tylenol with Codeine No.3 300MG/30MG] 1 - 2 tab PO Q4H PRN #60 tablet 07/17/19 [Rx] Cyclobenzaprine [Flexeril] 10 mg PO BID PRN #40 tablet 07/17/19 [Rx] Rivaroxaban [Xarelto] 10 mg PO DAILY #30 tablet 07/17/19 [Rx] Biotin 0.5 gm PO DAILY 07/23/19 [History] Cholecalciferol (Vitamin D3) [Vitamin D3] 1,000 unit PO DAILY 07/23/19 [History] Docusate Sodium [Colace] 100 mg PO TID 07/23/19 [History] Hydrocortisone 10 mg PO 1900 PRN 07/23/19 [History] Iron 65 mg PO DAILY 07/23/19 [History] Magnesium Oxide 210 mg PO DAILY 07/23/19 [History] amLODIPine Besylate [Amlodipine Besylate] 5 mg PO BID 07/23/19 [History] Multivitamin [Daily Multiple Vitamin] 1 each PO DAILY #30 tablet 07/27/19 [Rx] Oxygen Therapy Mode: Room Air Forms: ED Department Discharge Referrals: Santos Landis MD [Physician] - (please attend the scheduled follow up appointments that were previously made for you. Jul 31 at 1115 August 28 at 1145) Anoop Shaw MD [Primary Care Provider] - 08/07/19 2:00 pm (please attend the scheduled follow up appointment with Dr. Shaw as listed) - Discharge Summary/Plan Comment DC Time >30 min.: Yes (45 mins ) - General Info Date of Service: 07/27/19 Admission Dx/Problem (Free Text: Admission Diagnosis/Problem Admission Diagnosis/Problem Weakness Functional Status: Reports: Pain Controlled, Tolerating Diet, Ambulating, Urinating, Incentive Spirometry. Denies: New Symptoms - Review of Systems General: Reports: Weakness (improved ). Denies: Fever, Fatigue, Malaise HEENT: Reports: No Symptoms. Denies: Headaches, Sore Throat, Visual Changes Pulmonary: Reports: No Symptoms. Denies: Shortness of Breath, Cough, Hemoptysis , Wheezing Cardiovascular: Reports: No Symptoms. Denies: Chest Pain, Palpitations, Edema Gastrointestinal: Reports: No Symptoms. Denies: Abdominal Pain, Constipation, Diarrhea, Nausea, Vomiting Genitourinary: Reports: No Symptoms. Denies: Pain Musculoskeletal: Reports: Leg Pain (occasional ) Skin: Reports: No Symptoms Neurological: Reports: Pre-Existing Deficit (Difficulty walking s/p left TKA ), Difficulty Walking, Weakness, Gait Disturbance. Denies: Confusion Psychiatric: Reports: No Symptoms - Patient Data Vitals - Most Recent: Last Vital Signs Temp 98.1 F 07/27/19 08:21 Pulse 81 07/27/19 08:21 Resp 16 07/27/19 08:21 BP 136/59 L 07/27/19 08:21 Pulse Ox 95 07/27/19 08:21 Weight - Most Recent: 210 lb 8 oz I&O - Last 24 hours: Intake & Output 07/26/19 07/27/19 07/27/19 22:59 06:59 14:59 Intake Total 920 650 Output Total 500 800 Balance 420 -150 Lab Results - Last 24 hrs: Laboratory Results - last 24 hr 07/25/19 07/27/19 07/27/19 Range/Units 04:10 04:52 04:52 WBC 9.78 H (4.23-9.07) K/mm3 RBC 3.05 L (4.63-6.08) M/mm3 Hgb 9.5 L (13.7-17.5) gm/dl Hct 30.0 L (40.1-51.0) % MCV 98.4 H (79.0-92.2) fl MCH 31.1 (25.7-32.2) pg MCHC 31.7 L (32.2-35.5) g/dl RDW Std Deviation 42.1 (35.1-43.9) fL Plt Count 498 H (163-337) K/mm3 MPV 8.3 L (9.4-12.3) fl Neut % (Auto) 55.9 (34.0-67.9) % Lymph % (Auto) 28.7 (21.8-53.1) % [place] % (Auto) 13.3 H (5.3-12.2) % Eos % (Auto) 1.0 (0.8-7.0) Baso % (Auto) 0.2 (0.1-1.2) % Neut # (Auto) 5.46 H (1.78-5.38) K/mm3 Lymph # (Auto) 2.81 (1.32-3.57) K/mm3 [place] # (Auto) 1.30 H (0.30-0.82) K/mm3 Eos # (Auto) 0.10 (0.04-0.54) K/mm3 Baso # (Auto) 0.02 (0.01-0.08) K/mm3 Manual Slide Review Not Reportable Sodium 134 L (136-145) mEq/L Potassium 3.9 (3.5-5.1) mEq/L Chloride 99 (98-107) mEq/L Carbon Dioxide 31 (21-32) mEq/L Anion Gap 7.9 (5-15) BUN 31 H (7-18) mg/dL Creatinine 1.1 (0.7-1.3) mg/dL Est Cr Clr Drug Dosing 56.36 mL/min Estimated GFR (MDRD) > 60 (>60) mL/min BUN/Creatinine Ratio 28.2 H (14-18) Glucose 103 (83-115) mg/dL Calcium 8.7 (8.5-10.1) mg/dL Magnesium 2.1 (1.8-2.4) mg/dl Cortisol 5.9 ug/dL Med Orders - Current: Current Medications Acetaminophen (Tylenol) 650 mg PO Q4H PRN PRN Reason: Pain (Mild 1-3)/fever Acetaminophen/Codeine Phosphate (Tylenol With Codeine No.3 300mg/30mg) 1 - 2 tab PO Q4H PRN PRN Reason: Pain Last Admin: 07/26/19 20:50 Dose: 2 tab Amlodipine Besylate (Norvasc) 5 mg PO BID@0700,1900 [facility] Last Admin: 07/27/19 06:36 Dose: 5 mg Aspirin (Halfprin) 81 mg PO DAILY@0700 [facility] Last Admin: 07/27/19 06:35 Dose: 81 mg Docusate Sodium (Colace) 100 mg PO TID@0700,1400,1900 [facility] Last Admin: 07/27/19 06:36 Dose: 100 mg Ezetimibe (Zetia) 10 mg PO BEDTIME@1900 [facility] Last Admin: 07/26/19 18:46 Dose: 10 mg Ferrous Sulfate (Ferrous Sulfate) 325 mg PO DAILY [facility] Last Admin: 07/27/19 08:23 Dose: 325 mg Hydrochlorothiazide (Hydrochlorothiazide) 25 mg PO BID@0700,1900 [facility] Last Admin: 07/27/19 06:34 Dose: 25 mg Hydrocortisone (Cortef) 20 mg PO BID@0700,1430 [facility] Last Admin: 07/27/19 06:33 Dose: 20 mg Isosorbide Mononitrate (Imdur) 30 mg PO BID@0700,1900 [facility] Last Admin: 07/27/19 06:33 Dose: 30 mg Levothyroxine Sodium (Levothyroxine) 175 mcg PO ACBREAKFAST [facility] Last Admin: 07/27/19 06:04 Dose: 175 mcg Magnesium Oxide (Magnesium Oxide) 400 mg PO DAILY@0700 [facility] Last Admin: 07/27/19 06:34 Dose: 400 mg Nitroglycerin (Nitrostat) 0.4 mg SL ASDIRECTED PRN PRN Reason: Chest Pain Ondansetron HCl (Zofran) 4 mg IV Q4H PRN PRN Reason: Nausea/Vomiting Pantoprazole Sodium (Protonix) 40 mg PO DAILY@0700 [facility] Last Admin: 07/27/19 06:04 Dose: 40 mg Polyethylene Glycol (Miralax) 17 gm PO DAILY PRN PRN Reason: Constipation Last Admin: 07/27/19 06:03 Dose: 17 gm Rivaroxaban (Xarelto) 10 mg PO DAILY [facility] Last Admin: 07/27/19 08:23 Dose: 10 mg Rosuvastatin Calcium (Crestor) 40 mg PO BEDTIME@1900 [facility] Last Admin: 07/26/19 18:45 Dose: 40 mg Discontinued Medications Amlodipine Besylate (Norvasc) 5 mg PO BID [facility] Amlodipine Besylate (Norvasc) 5 mg PO BID@0700,1900 [facility] Last Admin: 07/24/19 07:06 Dose: Not Given Hydrocortisone (Cortef) 20 mg PO 0700,1430 [facility] Last Admin: 07/25/19 07:42 Dose: 20 mg Lactated Ringer's (Ringers, Lactated) 1,000 mls @ 999 mls/hr IV .BOLUS ONE Stop: 07/23/19 20:34 Last Admin: 07/23/19 19:54 Dose: 999 mls/hr Lactated Ringer's (Ringers, Lactated) 1,000 mls @ 125 mls/hr IV ASDIRECTED [facility] Last Admin: 07/23/19 21:22 Dose: 125 mls/hr Sodium Chloride (Normal Saline) 1,000 mls @ 75 mls/hr IV ASDIRECTED [facility] Last Admin: 07/25/19 00:53 Dose: 75 mls/hr Magnesium Sulfate 2 gm/ Premix 50 mls @ 25 mls/hr IV ONETIME ONE Stop: 07/24/19 12:46 Last Admin: 07/24/19 11:33 Dose: 25 mls/hr Magnesium Sulfate 4 gm/ Premix 100 mls @ 25 mls/hr IV ONETIME ONE Stop: 07/26/19 13:14 Last Admin: 07/26/19 09:49 Dose: 25 mls/hr Levothyroxine Sodium (Levothyroxine) 175 mcg PO ACBREAKFAST [facility] Last Admin: 07/24/19 05:40 Dose: 175 mcg Levothyroxine Sodium (Levothyroxine) 150 mcg PO ACBREAKFAST ANUP - Exam Quality Assessment: Reports: DVT Prophylaxis General: Reports: Alert, Oriented, Cooperative, No Acute Distress HEENT: Reports: Pupils Equal, Pupils Reactive, EOMI, Mucous Membr. Moist/[place] Neck: Reports: Supple, Trachea Midline, Lymphadenopathy Lungs: Reports: Clear to Auscultation, Normal Respiratory Effort Cardiovascular: Reports: Regular Rate, Regular Rhythm GI/Abdominal Exam: Normal Bowel Sounds, Soft, Non-Tender, No Distention, No Abnormal Bruit (Male) Exam: Deferred Rectal (Males) Exam: Deferred Back Exam: Reports: Normal Inspection Extremities: Normal Range of Motion, No Pedal Edema, Normal Capillary Refill, Other (Bandage in place on right knee. Cooling pack in place. ) Skin: Reports: Warm, Dry, Intact Wound/Incisions: Reports: Dressing Dry and Intact Neurological: Reports: No New Focal Deficit Psy/Mental Status: Reports: Alert, Normal Affect, Normal Mood
[2019-07-27] MEDS: Acetaminophen/Codeine 300-30 MG Tab PO PRN (11:23)
== END 2019-07-27 13:15 | DRG 641 ==
LOC: SUPCPDRO 18:45 → JD.ED 18:45 → JD.MS 21:28
PROVIDERS: ADMIT Family Medicine; ATTEND Family Medicine
DX: E87.1 Hypo-osmolality and hyponatremia (principal); E23.0 Hypopituitarism; R53.1 Weakness; Z96.652 Presence of left artificial knee joint; I25.10 Atherosclerotic heart disease of native coronary artery without angina pectoris; I10 Essential (primary) hypertension; K21.9 Gastro-esophageal reflux disease without esophagitis; E78.00 Pure hypercholesterolemia, unspecified; M19.91 Primary osteoarthritis, unspecified site; E83.42 Hypomagnesemia; E78.5 Hyperlipidemia, unspecified; E05.80 Other thyrotoxicosis without thyrotoxic crisis or storm; Z87.891 Personal history of nicotine dependence; Z88.6 Allergy status to analgesic agent; Z88.8 Allergy status to other drugs, medicaments and biological substances; I25.2 Old myocardial infarction; Z95.1 Presence of aortocoronary bypass graft; Z79.82 Long term (current) use of aspirin
CPT/HCPCS: 36415; 71045; 71045-26; 80048; 80053; 81001; 82533; 83735; 84439; 84443; 84481; 85025; 96360; 97110-GO; 97110-GP; 97116-GP; 97162-GP; 97166-GO; 97530-GO; 97535-GO; 99285; 99285-25; A9270-GY; J3475; J7040; J7120

== ENCOUNTER 2020-07-03 19:38 | Emergency (ER) | payer OTHER, MEDICARE ==
[2020-07-03 20:32] VITALS: PULSE 99
[2020-07-03] MEDS ORDERED: Sodium Chloride 0.9% 10 ML Syringe FLUSH PRN (20:41)
--- NOTE | 2020-07-03 21:07 | EDM.PDOC ---
<Home Moran - Last Filed: 07/05/20 08:24> ED HPI GENERAL MEDICAL PROBLEM - General Chief Complaint: Lower Extremity Injury/Pain Stated Complaint: [facility] ambulance Time Seen by Provider: 07/03/20 20:37 - History of Present Illness Onset: Sudden Onset Date: 07/02/20 Duration: Day(s):, Getting Worse Location: Reports: Lower Extremity, Left Quality: Reports: Ache, Burning Severity: Moderate Improves with: Reports: None Worsens with: Reports: Other (touch and walking ) Context: Reports: Other (spontaneous occurrence). Denies: Activity, Exercise, Lifting, Sick Contact, Trauma Associated Symptoms: Reports: Fever/Chills, Malaise, Rash. 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 - Related Data Allergies Allergy/AdvReac Type Severity Reaction Status Date / Time atorvastatin Allergy intolerance Verified 07/03/20 20:33 Iodinated Contrast Media Allergy Other Verified 07/03/20 20:33 methylprednisolone Allergy Other Verified 07/03/20 20:33 pravastatin Allergy intolderanc Verified 07/03/20 20:33 e aspirin AdvReac gi bleed Verified 07/03/20 20:33 clopidogrel bisulfate AdvReac GI Verified 07/03/20 20:33 [From Plavix] bleeding if on for a long period of time warfarin [From Coumadin] AdvReac GI bleed Verified 07/03/20 20:33 zolpidem tartrate AdvReac "mess me Verified 07/03/20 20:33 [From Ambien] up mentally" Home Meds: Home Meds Isosorbide Mononitrate [Isosorbide Mononitrate ER] 30 mg PO BID 08/15/15 [History] Levothyroxine Sodium [Synthroid] 175 mcg PO ACBREAKFAST 08/15/15 [History] Nitroglycerin [Nitrostat] 1 tab SL ASDIRECTED PRN 08/15/15 [History] Rosuvastatin [Crestor] 40 mg PO BEDTIME 08/15/15 [History] Ubidecarenone [Co Q-10] 100 mg PO DAILY 08/15/15 [History] Aspirin [Halfprin] 81 mg PO DAILY 02/23/17 [History] Omeprazole 40 mg PO DAILY 02/24/17 [History] Ezetimibe [Zetia] 10 mg PO BEDTIME 07/15/19 [History] Hydrocortisone [Cortef] 20 mg PO 0700,1430 07/15/19 [History] lisinopriL [Lisinopril] 2.5 mg PO DAILY 07/15/19 [History] Ranitidine [Zantac] 150 mg PO BID 07/16/19 [History] hydroCHLOROthiazide [Hydrochlorothiazide] 25 mg PO BID 07/16/19 [History] Acetaminophen/Codeine [Tylenol with Codeine No.3 300MG/30MG] 1 - 2 tab PO Q4H PRN #60 tablet 07/17/19 [Rx] Cyclobenzaprine [Flexeril] 10 mg PO BID PRN #40 tablet 07/17/19 [Rx] Rivaroxaban [Xarelto] 10 mg PO DAILY #30 tablet 07/17/19 [Rx] Biotin 0.5 gm PO DAILY 07/23/19 [History] Cholecalciferol (Vitamin D3) [Vitamin D3] 1,000 unit PO DAILY 07/23/19 [History] Docusate Sodium [Colace] 100 mg PO TID 07/23/19 [History] Hydrocortisone 10 mg PO 1900 PRN 07/23/19 [History] Iron 65 mg PO DAILY 07/23/19 [History] Magnesium Oxide 210 mg PO DAILY 07/23/19 [History] amLODIPine Besylate [Amlodipine Besylate] 5 mg PO BID 07/23/19 [History] Multivitamin [Daily Multiple Vitamin] 1 each PO DAILY #30 tablet 07/27/19 [Rx] ED EXAM, GENERAL - Physical Exam Exam: See Below Exam Limited By: No Limitations General Appearance: Alert, WD/WN, Mild Distress, Other (Temperature is 36.4. Heart rate 99 sinus respiratory to 16 with O2 sats of 93% room air BP 103 and 52.) Eye Exam: Bilateral Eye: Normal Inspection (No scleral icterus or blepharal pallor.) Throat/Mouth: Normal Inspection, Normal Lips, Other. No: Normal Teeth Head: Atraumatic, Normocephalic (Tongue is mildly dry.) Neck: Normal Inspection, Limited Range of Motion, Tender Lateral. No: Carotid Bruit, Lymphadenopathy (L), Lymphadenopathy (R) Respiratory/Chest: No Respiratory Distress, No Accessory Muscle Use, Decreased Breath Sounds (Decreased breath sounds at lower 20% lung angulo posteriorly.), Other (O2 sats 93 to 95% room air). No: Normal Breath Sounds, Wheezing Cardiovascular: Regular Rate, Rhythm, No Edema, No Gallop, No Murmur, No Rub. No: Normal Peripheral Pulses Peripheral Pulses: 1+: Posterior Tibial (L), Posterior Tibial (R), Dorsalis Pedis (L), Dorsalis Pedis (R), 2+: Carotid (L), Carotid (R) GI/Abdominal: Normal Bowel Sounds, Soft, Non-Tender, No Organomegaly, No Abnormal Bruit Extremities: Other (Evidence of osteoarthritic changes in both knees both hips. Left lateral leg reveals inflammation of the skin from the knee to the ankle anterior laterally. Area is very tender to touch.) Neurological: Alert, Oriented ( No open wounds or active drainage of any purulent material.), CN II-XII Intact, Normal Cognition Psychiatric: Normal Affect, Normal Mood Skin Exam: Warm, Dry, Intact, Erythema, Increased Warmth (Area of cellulitis lateral left leg from knee to ankle.) Course - Radiology Interpretation Free Text/Narrative:: 79-year-old male presents to the ED due to pain and inflammation left lateral leg from knee to ankle. Indicates that this started about 2 days ago. No obvious source of infection. He states this happened to him once in the past same leg. Clinically patient is mildly hypoxic at 93% on room air. He does feel much warmer than temperature recorded at 96.3. Plan routine labs and blood cultures. Will be given vancomycin 1 g IV and Rocephin 2 g IV. - Re-Assessments/Exams Free Text/Narrative Re-Assessment/Exam: 07/04/20 05:17 I have looked over this patient's labs that were done earlier last night and with the markedly elevated CRP and white blood count . He needs to be admitted to the hospital. At current our hospital is on diversion as are both hospitals in [place]. It is unclear if we will have a discharge from the hospital today. Serum sodium was 126 . I will have repeat labs done at 0545 hrs. this morning to include a lactic acid. He received only a liter of IV fluids but does have an elevated BNP at 805. Plan I am going to place him back on IV fluids at D5 LR at 75 mils an hour. Will be given Lasix 40 mg IV at this time as well. 07/04/20 08:00 The labs done this morning reveal white count has decreased mildly from 19.4-16.24. Hemoglobin is also decreased from 12.8-11.8 suggesting some degree of dilution from IV fluids. Sodium has improved from 126-128 only. Potassium is 3.7 chloride is 92. Bicarb is 24. Anion gap is improved from 18-15.7. Creatinine is elevated at 1.6. Troponin is positive at 0.174 morning. It was not done last evening. It is likely a stress reaction from high fever and cellulitis. If no beds become available here in [place] we will have to look around elsewhere in the state for a bed for this fellow. Patient will require trending of his troponin. Bhupinder troponin ordered for 11 AM this morning. 07/04/20 09:30 Patient has been accepted in [facility] by Dr. Reyes- emergency room physician. He will receive his second dose of vancomycin 1 g now as it is ordered every 18 hours by pharmacy. First dose was at 1300 hrs. yesterday. As potation will need to be arranged to [facility] tentatively by ground ambulance. Departure - Departure Time of Disposition: 11:15 Disposition: DC/Tfer to Acute Hospital 02 Condition: Fair Clinical Impression: Cellulitis of left leg without foot, Elevated troponin I level, Acute febrile illness Leukocytosis Qualifiers: Leukocytosis type: bandemia Qualified Code(s): D72.825 - Bandemia Congestive heart failure Qualifiers: Heart failure type: unspecified Heart failure chronicity: acute on chronic Qualified Code(s): I50.9 - Heart failure, unspecified - Discharge Information *PRESCRIPTION DRUG MONITORING PROGRAM REVIEWED*: Not Applicable *COPY OF PRESCRIPTION DRUG MONITORING REPORT IN PATIENT DA: Not Applicable Instructions: Cellulitis, Adult Referrals: Anoop Shaw MD [Primary Care Provider] - Forms: ED Department Discharge Additional Instructions: Patient will be tentatively transferred to [facility] in [facility] where there is a bed open for him. Accepting physician is through the ED. transportation to that facility has yet to be arranged. <Libia Simpson - Last Filed: 07/06/20 16:23> ED HPI GENERAL MEDICAL PROBLEM - General Source of Information: Reports: Patient History Limitations: Reports: No Limitations - History of Present Illness INITIAL COMMENTS - FREE TEXT/NARRATIVE: Patient is an 79-year-old male brought in by the patient ambulance with complaints of redness and warmth to his left medial knee extending to the level of his mid calf. He is unsure when the symptoms exactly began, however he states that it is worsened over the last 2 days. 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 He denies any fever, chills, nausea, vomiting, or weakness. Has had no respiratory symptoms no cough or shortness of breath. Denies any chest pain. Left Lower Leg Pain Score (Numeric/FACES): 9 Past Medical History HEENT History: Reports: Impaired Vision Other HEENT History: tinnitus, wears glasses Cardiovascular History: Reports: CAD, High Cholesterol, Hypertension, CO, Other (See Below) Other Cardiovascular History: CO x 2, Left carotidendartectomy, Right carotid completely blocked Respiratory History: Reports: None Gastrointestinal History: Reports: GERD, GI Bleed, PUD Other Gastrointestinal History: frank's esophagus, GI ulcers Genitourinary History: Reports: Renal Disease Other Genitourinary History: Prostate cancer, renal stenosis - elevated BUN/CRE, CKD III, renal artery stenosis with stent placement, cystoscopy 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 Musculoskeletal History: Reports: Osteoarthritis Other Musculoskeletal History: Left knee pain, right knee pain, bilateral shoulder pain - multiple back problems with lami X 2 Neurological History: Reports: None Psychiatric History: Reports: Depression 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, Hypothyroidism Other Endocrine/Metabolic History: panhypopituitarism, 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, 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, cushings disease, pituatary adenoma Hematologic History: Reports: None Immunologic History: Reports: None Oncologic (Cancer) History: Reports: Prostate Other Oncologic History: pituitary Other Dermatologic History: thin skin with frequent skin tears, excision of lipoma, actinic keratosis - Infectious Disease History Infectious Disease History: Reports: Chicken Pox, Measles, Mumps - Past Surgical History HEENT Surgical History: Reports: Adenoidectomy, Cataract Surgery, Tonsillectomy Cardiovascular Surgical History: Reports: Carotid Endarterectomy, Coronary Artery Bypass, Vascular Surgery GI Surgical History: Reports: Colonoscopy, EGD Male Surgical History: Reports: Prostate Biopsy, Other (See Below) Endocrine Surgical History: Reports: Pituitary Tumor Resection Neurological Surgical History: Reports: Laminectomy, Lumbar Spine Musculoskeletal Surgical History: Reports: Amputation, Knee Replacement, Other (See Below) Other Musculoskeletal Surgeries/Procedures:: LTKA on 07/16/19, RTKA 2016 Oncologic Surgical History: Reports: Other (See Below) Other Oncologic Surgeries/Procedures: Pituitary gland removal Social & Family History - Family History Family Medical History: Noncontributory - Caffeine Use Caffeine Use: Reports: None - Living Situation & Occupation Living situation: Reports: , with Spouse Occupation: Retired Review of Systems - Review of Systems Review Of Systems: See Below Constitutional: Reports: No Symptoms. Denies: Chills, Fever Eyes: Reports: No Symptoms Ears: Reports: No Symptoms Nose: Reports: No Symptoms Mouth/Throat: Reports: No Symptoms Respiratory: Reports: No Symptoms Cardiovascular: Reports: No Symptoms GI/Abdominal: Reports: No Symptoms Genitourinary: Reports: No Symptoms Musculoskeletal: Reports: No Symptoms Skin: Reports: Erythema (Left lateral to level of mid calf) Neurological: Reports: No Symptoms Psychiatric: Reports: No Symptoms Course - Vital Signs Last Recorded V/S: Last Vital Signs Temp 98.5 F 07/04/20 07:18 Pulse 99 07/04/20 07:18 Resp 20 07/04/20 07:18 BP 102/51 L 07/04/20 07:18 Pulse Ox 96 07/04/20 07:18 - Orders/Labs/Meds Labs: Laboratory Tests 07/03/20 07/03/20 07/03/20 Range/Units 21:18 21:18 21:18 WBC 19.41 H (4.23-9.07) K/mm3 RBC 4.07 L (4.63-6.08) M/mm3 Hgb 12.8 L D (13.7-17.5) gm/dl Hct 38.5 L (40.1-51.0) % MCV 94.6 H D (79.0-92.2) fl MCH 31.4 (25.7-32.2) pg MCHC 33.2 (32.2-35.5) g/dl RDW Std Deviation 46.1 H (35.1-43.9) fL Plt Count 392 H D (163-337) K/mm3 MPV 9.0 L (9.4-12.3) fl Neut % (Auto) 81.5 H (34.0-67.9) % Lymph % (Auto) 7.4 L (21.8-53.1) % Porter % (Auto) 10.3 (5.3-12.2) % Eos % (Auto) 0.1 L (0.8-7.0) Baso % (Auto) 0.1 (0.1-1.2) % Neut # (Auto) 15.86 H (1.78-5.38) K/mm3 Lymph # (Auto) 1.43 (1.32-3.57) K/mm3 Porter # (Auto) 1.99 H (0.30-0.82) K/mm3 Eos # (Auto) 0.01 L (0.04-0.54) K/mm3 Baso # (Auto) 0.01 (0.01-0.08) K/mm3 Manual Slide Review Abnormal smear PT (9.7-11.7) SECONDS INR D-Dimer, Quantitative 0.72 H (0.19-0.50) mg/L Sodium 126 L (136-145) mEq/L Potassium 4.0 (3.5-5.1) mEq/L Chloride 89 L (98-107) mEq/L Carbon Dioxide 23 (21-32) mEq/L Anion Gap 18.0 H (5-15) BUN 23 H (7-18) mg/dL Creatinine 1.4 H (0.7-1.3) mg/dL Est Cr Clr Drug Dosing TNP Estimated GFR (MDRD) 49 (>60) mL/min BUN/Creatinine Ratio 16.4 (14-18) Glucose 115 (83-115) mg/dL Lactic Acid (0.4-2.0) mmol/L Calcium 9.4 (8.5-10.1) mg/dL Total Bilirubin 0.7 (0.2-1.0) mg/dL AST 24 (15-37) U/L ALT 22 (16-63) U/L Alkaline Phosphatase 103 (46-116) U/L CK-MB (CK-2) (0-3.6) ng/ml Troponin I (0.00-0.056) ng/mL C-Reactive Protein 71.2 H* (<1.0) mg/dL NT-Pro-B Natriuret Pep (0-450) pg/mL Total Protein 7.7 (6.4-8.2) g/dl Albumin 2.6 L (3.4-5.0) g/dl Globulin 5.1 gm/dL Albumin/Globulin Ratio 0.5 L (1-2) SARS-CoV-2 RNA (LIZ) (NEGATIVE) 07/03/20 07/03/20 07/04/20 Range/Units 21:49 21:49 05:39 WBC 16.24 H (4.23-9.07) K/mm3 RBC 3.82 L (4.63-6.08) M/mm3 Hgb 11.8 L (13.7-17.5) gm/dl Hct 35.1 L (40.1-51.0) % MCV 91.9 (79.0-92.2) fl MCH 30.9 (25.7-32.2) pg MCHC 33.6 (32.2-35.5) g/dl RDW Std Deviation 45.5 H (35.1-43.9) fL Plt Count 322 (163-337) K/mm3 MPV 8.6 L (9.4-12.3) fl Neut % (Auto) 71.7 H (34.0-67.9) % Lymph % (Auto) 14.9 L (21.8-53.1) % Porter % (Auto) 13.1 H (5.3-12.2) % Eos % (Auto) 0.2 L (0.8-7.0) Baso % (Auto) 0.1 (0.1-1.2) % Neut # (Auto) 11.65 H (1.78-5.38) K/mm3 Lymph # (Auto) 2.42 (1.32-3.57) K/mm3 Porter # (Auto) 2.13 H (0.30-0.82) K/mm3 Eos # (Auto) 0.03 L (0.04-0.54) K/mm3 Baso # (Auto) 0.01 (0.01-0.08) K/mm3 Manual Slide Review Abnormal smear PT (9.7-11.7) SECONDS INR D-Dimer, Quantitative (0.19-0.50) mg/L Sodium (136-145) mEq/L Potassium (3.5-5.1) mEq/L Chloride (98-107) mEq/L Carbon Dioxide (21-32) mEq/L Anion Gap (5-15) BUN (7-18) mg/dL Creatinine (0.7-1.3) mg/dL Est Cr Clr Drug Dosing Estimated GFR (MDRD) (>60) mL/min BUN/Creatinine Ratio (14-18) Glucose (83-115) mg/dL Lactic Acid 1.7 (0.4-2.0) mmol/L Calcium (8.5-10.1) mg/dL Total Bilirubin (0.2-1.0) mg/dL AST (15-37) U/L ALT (16-63) U/L Alkaline Phosphatase (46-116) U/L CK-MB (CK-2) (0-3.6) ng/ml Troponin I (0.00-0.056) ng/mL C-Reactive Protein (<1.0) mg/dL NT-Pro-B Natriuret Pep 807 H (0-450) pg/mL Total Protein (6.4-8.2) g/dl Albumin (3.4-5.0) g/dl Globulin gm/dL Albumin/Globulin Ratio (1-2) SARS-CoV-2 RNA (LIZ) (NEGATIVE) 07/04/20 07/04/20 07/04/20 Range/Units 05:39 05:39 05:39 WBC (4.23-9.07) K/mm3 RBC (4.63-6.08) M/mm3 Hgb (13.7-17.5) gm/dl Hct (40.1-51.0) % MCV (79.0-92.2) fl MCH (25.7-32.2) pg MCHC (32.2-35.5) g/dl RDW Std Deviation (35.1-43.9) fL Plt Count (163-337) K/mm3 MPV (9.4-12.3) fl Neut % (Auto) (34.0-67.9) % Lymph % (Auto) (21.8-53.1) % Porter % (Auto) (5.3-12.2) % Eos % (Auto) (0.8-7.0) Baso % (Auto) (0.1-1.2) % Neut # (Auto) (1.78-5.38) K/mm3 Lymph # (Auto) (1.32-3.57) K/mm3 Porter # (Auto) (0.30-0.82) K/mm3 Eos # (Auto) (0.04-0.54) K/mm3 Baso # (Auto) (0.01-0.08) K/mm3 Manual Slide Review PT (9.7-11.7) SECONDS INR D-Dimer, Quantitative (0.19-0.50) mg/L Sodium 128 L (136-145) mEq/L Potassium 3.7 (3.5-5.1) mEq/L Chloride 92 L (98-107) mEq/L Carbon Dioxide 24 (21-32) mEq/L Anion Gap 15.7 H (5-15) BUN 24 H (7-18) mg/dL Creatinine 1.6 H (0.7-1.3) mg/dL Est Cr Clr Drug Dosing TNP Estimated GFR (MDRD) 42 (>60) mL/min BUN/Creatinine Ratio 15.0 (14-18) Glucose 90 (83-115) mg/dL Lactic Acid 1.2 (0.4-2.0) mmol/L Calcium 8.6 (8.5-10.1) mg/dL Total Bilirubin 0.5 (0.2-1.0) mg/dL AST 19 (15-37) U/L ALT 17 (16-63) U/L Alkaline Phosphatase 88 (46-116) U/L CK-MB (CK-2) 1.1 (0-3.6) ng/ml Troponin I 0.174 H* (0.00-0.056) ng/mL C-Reactive Protein (<1.0) mg/dL NT-Pro-B Natriuret Pep (0-450) pg/mL Total Protein 6.7 (6.4-8.2) g/dl Albumin 2.1 L (3.4-5.0) g/dl Globulin 4.6 gm/dL Albumin/Globulin Ratio 0.5 L (1-2) SARS-CoV-2 RNA (LIZ) (NEGATIVE) 07/04/20 07/04/20 Range/Units 05:39 05:48 WBC (4.23-9.07) K/mm3 RBC (4.63-6.08) M/mm3 Hgb (13.7-17.5) gm/dl Hct (40.1-51.0) % MCV (79.0-92.2) fl MCH (25.7-32.2) pg MCHC (32.2-35.5) g/dl RDW Std Deviation (35.1-43.9) fL Plt Count (163-337) K/mm3 MPV (9.4-12.3) fl Neut % (Auto) (34.0-67.9) % Lymph % (Auto) (21.8-53.1) % Porter % (Auto) (5.3-12.2) % Eos % (Auto) (0.8-7.0) Baso % (Auto) (0.1-1.2) % Neut # (Auto) (1.78-5.38) K/mm3 Lymph # (Auto) (1.32-3.57) K/mm3 Porter # (Auto) (0.30-0.82) K/mm3 Eos # (Auto) (0.04-0.54) K/mm3 Baso # (Auto) (0.01-0.08) K/mm3 Manual Slide Review PT 17.9 H (9.7-11.7) SECONDS INR 1.69 D-Dimer, Quantitative (0.19-0.50) mg/L Sodium (136-145) mEq/L Potassium (3.5-5.1) mEq/L Chloride (98-107) mEq/L Carbon Dioxide (21-32) mEq/L Anion Gap (5-15) BUN (7-18) mg/dL Creatinine (0.7-1.3) mg/dL Est Cr Clr Drug Dosing Estimated GFR (MDRD) (>60) mL/min BUN/Creatinine Ratio (14-18) Glucose (83-115) mg/dL Lactic Acid (0.4-2.0) mmol/L Calcium (8.5-10.1) mg/dL Total Bilirubin (0.2-1.0) mg/dL AST (15-37) U/L ALT (16-63) U/L Alkaline Phosphatase (46-116) U/L CK-MB (CK-2) (0-3.6) ng/ml Troponin I (0.00-0.056) ng/mL C-Reactive Protein (<1.0) mg/dL NT-Pro-B Natriuret Pep (0-450) pg/mL Total Protein (6.4-8.2) g/dl Albumin (3.4-5.0) g/dl Globulin gm/dL Albumin/Globulin Ratio (1-2) SARS-CoV-2 RNA (LIZ) Negative (NEGATIVE) Meds: Medications Discontinued Medications Generic Name Dose Route Start Last Admin Trade Name Freq PRN Reason Stop Dose Admin Furosemide 40 mg 07/04/20 05:20 07/04/20 07:17 Lasix IVPUSH 07/04/20 05:21 40 mg NOW ONE Administration Hydromorphone HCl 0.25 mg 07/03/20 23:39 07/03/20 23:51 Dilaudid IVPUSH 07/03/20 23:40 0.25 mg ONETIME ONE Administration Ceftriaxone Sodium 2 gm/ 100 mls @ 200 mls/hr 07/03/20 22:15 07/03/20 23:12 Sodium Chloride IV 200 mls/hr Q24H ANUP Administration Sodium Chloride 1,000 mls @ 999 mls/hr 07/03/20 22:34 07/03/20 23:09 Normal Saline IV 07/03/20 23:34 999 mls/hr NOW STA Administration Vancomycin HCl 1 gm/ Sodium 250 mls @ 250 mls/hr 07/04/20 00:00 07/04/20 00:12 Chloride IV 250 mls/hr Q12H ANUP Administration Dextrose/Sodium Chloride 1,000 mls @ 75 mls/hr 07/04/20 05:30 07/04/20 08:17 Dextrose 5%-Normal Saline IV 75 mls/hr ASDIRECTED ANUP Administration Vancomycin HCl 1 gm/ Sodium 250 mls @ 250 mls/hr 07/04/20 07:15 07/04/20 09:50 Chloride IV Not Given Q12H ANUP Vancomycin HCl 1 gm/ 500 mls @ 250 mls/hr 07/04/20 13:00 Vancomycin HCl 500 mg/ Sodium IV Chloride Q18H ANUP Vancomycin HCl 1 gm/ Sodium 250 mls @ 250 mls/hr 07/04/20 09:29 07/04/20 09:50 Chloride IV 07/04/20 10:28 Not Given ONETIME ONE Sodium Chloride 10 ml 07/03/20 20:41 07/03/20 21:23 Saline Flush FLUSH 10 ml ASDIRECTED PRN Administration Keep Vein Open Vancomycin HCl 1 dose 07/04/20 09:00 Pharmacy To Dose - Vancomycin .XX DAILY PRN RX TO DOSE VANCO - Re-Assessments/Exams Free Text/Narrative Re-Assessment/Exam: Patient is an 79-year-old male presenting to the emergency department with complaints of redness, warmth, and swelling to the medial aspect of his left knee extending down into his right mid calf. He is currently on Xarelto, the refore my suspicion for DVT is low. He denies any fever, chills, nausea, or vomiting. His appetite has been normal. I have ordered a CBC, CMP, CRP, lactic acid, blood cultures and a d-dimer. 07/03/20 2220 Hematology was significant for WBC elevated at 19.41, hemoglobin low at 12.8, d- dimer minimally elevated at 0.72, however this corresponds to a normal d-dimer for his age, sodium is low at 126, chloride 89, anion gap 18, BUN 23, creatinine 1.4, CRP 71.2, BNP 807. Lactic acid is normal at 1.7. I have ordered 2 g of IV Rocephin. As well as a 1 L bolus of normal saline. 07/04/20 00:34 Case discussed with Luisa BOJORQUEZ. Patient would benefit from admission to the hospital, however we do not have any beds available. He will be kept in the emergency department over night. Dr. Moran will assume care and disposition of the patient. He recommended that we start him on vancomycin to cover for MRSA infection. Patient was having some discomfort in the knee, therefore I ordered Dilaudid 0.5 mg IV be given. I did call and speak with his , Sakina to update on the plan. All questions answered. Sepsis Event Note (ED) - Evaluation Sepsis Screening Result: No Definite Risk
[2020-07-03] MEDS ORDERED: cefTRIAXone 2 GM in Sodium Chloride 0.9% 100 ML IV SCH (22:15)
[2020-07-03] MEDS ORDERED: Sodium Chloride 0.9% 1,000 ML IV STA (22:34)
[2020-07-03] MEDS ORDERED: HYDROmorphone 0.5 MG/0.5 ML Syringe IVPUSH ONE (23:39)
[2020-07-04] MEDS ORDERED: Furosemide 40 MG/4 ML VIAL IVPUSH ONE (05:20)
[2020-07-04] MEDS ORDERED: Dextrose 5%-0.9% NaCl 1,000 ML IV SCH (05:30)
[2020-07-04 07:19] VITALS: BP 102/51
[2020-07-04] MEDS ORDERED: Vancomycin 1 GM, Vancomycin 500 MG in Sodium Chloride 0.9% 500 ML IV SCH (13:00)
== END 2020-07-04 11:20 ==
LOC: JD.ED 19:38
DX: L03.116 Cellulitis of left lower limb (principal); I13.0 Hypertensive heart and chronic kidney disease with heart failure and stage 1 through stage 4 chronic kidney disease, or unspecified chronic kidney disease; N18.3 Chronic kidney disease, stage 3 (moderate); I50.9 Heart failure, unspecified; D72.825 Bandemia; R79.89 Other specified abnormal findings of blood chemistry; E78.00 Pure hypercholesterolemia, unspecified; I25.10 Atherosclerotic heart disease of native coronary artery without angina pectoris; I25.2 Old myocardial infarction; K21.9 Gastro-esophageal reflux disease without esophagitis; M19.90 Unspecified osteoarthritis, unspecified site; E03.9 Hypothyroidism, unspecified; Z96.651 Presence of right artificial knee joint; Z96.652 Presence of left artificial knee joint; Z20.828 Contact with and (suspected) exposure to other viral communicable diseases; Z88.8 Allergy status to other drugs, medicaments and biological substances; Z91.041 Radiographic dye allergy status; Z88.6 Allergy status to analgesic agent; Z79.899 Other long term (current) drug therapy; Z79.82 Long term (current) use of aspirin; Z79.01 Long term (current) use of anticoagulants
CPT/HCPCS: 36415; 80053; 82553; 83605; 83880; 84484; 85025; 85379; 85610; 86140; 87040; 87635; 93005; 96361; 96365; 96367; 96375; 99285; J0696; J1170; J1940; J3370; J7030; J7042; J7050; 99284; U0002

== ENCOUNTER 2022-03-04 07:37 | Emergency (ER) | payer OTHER, MEDICARE ==
[2022-03-04 08:43] VITALS: BP 155/58; PULSE 66
== END 2022-03-04 11:55 | disposition home or self-care (01) ==
LOC: JD.ED 07:37
DX: I82.502 Chronic embolism and thrombosis of unspecified deep veins of left lower extremity (principal); I25.10 Atherosclerotic heart disease of native coronary artery without angina pectoris; E78.00 Pure hypercholesterolemia, unspecified; I25.2 Old myocardial infarction; I10 Essential (primary) hypertension; K21.9 Gastro-esophageal reflux disease without esophagitis; Z79.899 Other long term (current) drug therapy; Z79.82 Long term (current) use of aspirin; Z88.8 Allergy status to other drugs, medicaments and biological substances; Z91.041 Radiographic dye allergy status; Z88.6 Allergy status to analgesic agent; Z79.01 Long term (current) use of anticoagulants
CPT/HCPCS: 36415; 80053; 85025; 85610; 85730; 93971-26-LT; 93971-LT; 99284-25

== ENCOUNTER 2024-06-09 10:25 | Inpatient (IN) | payer OTHER, MEDICARE ==
[2024-06-09 11:15] LABS: BASOPHILS PERCENT AUTO 0.2 % (0.0-1.0); EOSINOPHILS PERCENT AUTO 0.1 % (0.0-6.0); HEMATOCRIT 32.5 % (42.0-52.0); HEMOGLOBIN 10.7 gm/dl (14.0-18.0); IMMATURE GRAN ABSOLUTE AUTO 0.12 K/mm3 (0.00-0.05); IMMATURE GRAN PERCENT AUTO 0.8 % (0.0-0.4); LYMPHOCYTES ABSOLUTE AUTO 1.8 K/mm3 (1.0-4.8); LYMPHOCYTES PERCENT AUTO 12.4 % (24.0-44.0); MEAN CORPUSCULAR HGB CONC 32.9 g/dl (32.0-36.0); MEAN CORPUSCULAR VOLUME 100.3 fl (83.0-99.0); MONOCYTES ABSOLUTE AUTO 1.4 K/mm3 (0.0-0.8); MONOCYTES PERCENT AUTO 9.9 % (0.0-8.0); NEUTROPHILS ABSOLUTE AUTO 11.1 K/mm3 (1.8-7.7); NEUTROPHILS PERCENT AUTO 76.6 % (41.0-71.0); PLATELET COUNT,PLT 174 K/mm3 (150-400); RED BLOOD CELL COUNT 3.24 M/mm3 (4.52-5.90); WHITE BLOOD CELL COUNT,WBC 14.46 K/mm3 (3.9-11.3)
[2024-06-09] MEDS ORDERED: Lactated Ringers 1,000 ML IV SCH (11:30)
[2024-06-09 11:34] LABS: LACTIC ACID 1.6 mmol/L (0.4-2.0)
[2024-06-09] MEDS: Sodium Chloride 0.9% 500 ML IV ONE (11:38)
[2024-06-09] MEDS: Acetaminophen 325 MG Tab PO ONE (11:38)
[2024-06-09] MEDS: Sodium Chloride 0.9% 10 ML Syringe FLUSH PRN (11:39)
[2024-06-09 11:40] LABS: INR 2.55; PROTHROMBIN TIME 25.4 SECONDS (9.7-12.0)
[2024-06-09 11:41] LABS: A/G RATIO 0.8 (1-2); ALBUMIN 2.6 g/dl (3.4-5.0); ANION GAP 10.9 (5-15); BILIRUBIN TOTAL 1.1 mg/dL (0.2-1.0); BUN/CREATININE RATIO 13.8 (14-18); C-REACTIVE PROTEIN 24.51 mg/dL (<0.30); CALCIUM 8.6 mg/dL (8.5-10.1); CREATININE 2.1 mg/dL (0.7-1.3); EST CRCL DRUG DOSING (CG) 26.19 mL/min; MAGNESIUM 1.8 mg/dL (1.8-2.4); POTASSIUM,K 3.9 mEq/L (3.5-5.1); PROTEIN TOTAL,TP 5.7 g/dl (6.4-8.2)
[2024-06-09 11:43] LABS: HEMOGLOBIN A1C 5.5 %
[2024-06-09 11:58] LABS: BASE EXCESS ARTERIAL 0.2 (-2-2.0); BICARBONATE,ARTERIAL 24.2 meq/L (22.0-26.0); O2 SATURATION ARTERIAL 44.9 % (96.0-97.0); PCO2 ARTERIAL 38.8 mmHg (35.0-45.0)
[2024-06-09 12:34] LABS: CORONAVIRUS COVID-19 NAA NEGATIVE (NEGATIVE); INFLUENZA A NAA NEGATIVE (NEGATIVE); RESPIRATORY SYNCYTIAL VIR NAA NEGATIVE (NEGATIVE)
[2024-06-09] MEDS ORDERED: Piperacillin/Tazobactam 4.5 GM in Sodium Chloride 0.9% 100 ML IV SCH (13:00)
[2024-06-09 13:23] LABS: APPEARANCE,URINE CLEAR (Clear); BILIRUBIN,URINE NEGATIVE (Negative); COLOR,URINE YELLOW (Yellow); GLUCOSE,URINE NEGATIVE (Negative); KETONES,URINE NEGATIVE (Negative); LEUKOCYTE ESTERASE,URINE NEGATIVE (Negative); NITRITE,URINE NEGATIVE (Negative); OCCULT BLOOD,URINE NEGATIVE (Negative); PH,URINE 6.5 (5.0-8.0); PROTEIN,URINE 1+ (Negative); UROBILINOGEN,URINE 0.2 (0.2-1.0)
[2024-06-09 13:39] LABS: RBC,URINE 0-5 /hpf (0-5); SQUAMOUS EPITHELIAL CELLS,UR NOT SEEN /hpf (0-5); WBC,URINE 0-5 /hpf (0-5)
[2024-06-09 13:40] LABS: BACTERIA,URINE RARE /hpf (FEW); MUCUS,URINE NOT SEEN /hpf (FEW)
[2024-06-09] MEDS: Hydrocortisone Sodium Succinate 100 MG/2 ML SDV IVPUSH ONE (13:43)
[2024-06-09] MEDS: Piperacillin/Tazobactam 4.5 GM in Sodium Chloride 0.9% 100 ML IV ONE (13:43)
[2024-06-09] MEDS: Lidocaine 2% 11 ML Jelly Filled Syringe MUCMEM ONE (19:37)
[2024-06-09] MEDS: Furosemide 40 MG/4 ML VIAL IVPUSH ONE ×2 (19:38→23:01)
[2024-06-09] MEDS ORDERED: Sennosides/Docusate Sodium 50-8.6 MG Tab PO PRN (19:50)
[2024-06-09] MEDS ORDERED: Ondansetron 4 MG/2 ML SDV IV PRN (19:50)
[2024-06-09] MEDS ORDERED: oxyCODONE 5 MG Tab PO PRN (19:50)
[2024-06-09] MEDS ORDERED: Acetaminophen 325 MG Tab PO PRN (19:50)
[2024-06-09] MEDS ORDERED: Melatonin 3 MG Tab PO PRN (19:50)
[2024-06-09] MEDS ORDERED: 50% Dextrose in Water 50 ML Syringe IVPUSH PRN (20:04)
[2024-06-09] MEDS ORDERED: Vasopressin 100 UNIT in Dextrose 5% in Water 245 ML IV SCH (21:15)
[2024-06-09 21:17] LABS: FOLIC ACID 73.7 ng/mL (8.6-58.9)
[2024-06-09] MEDS: Famotidine 20 MG/2 ML SDV IVPUSH SCH (23:01)
[2024-06-09] MEDS: Lidocaine 1% 10 ML MDV ONE (23:08)
[2024-06-09] MEDS: Midazolam 1 MG/ML 2 ML SDV ONE (23:09)
[2024-06-09] MEDS: Midazolam 1 MG/ML 2 ML SDV IVPUSH ONE (23:10)
[2024-06-09] MEDS: Sodium Chloride 0.9% 1,000 ML ONE (23:23)
[2024-06-09] MEDS: Hydrocortisone Sodium Succinate 100 MG/2 ML SDV IVPUSH SCH (23:46)
[2024-06-09] MEDS: Furosemide 40 MG/4 ML VIAL ONE (23:48)
[2024-06-09] MEDS: Piperacillin/Tazobactam 4.5 GM in Sodium Chloride 0.9% 100 ML IV SCH (23:48)
[2024-06-10] MEDS: Sodium Chloride 0.9% 100 ML ONE (01:30)
[2024-06-10] MEDS: Sodium Chloride 0.9% 1,000 ML ONE (02:40)
[2024-06-10] MEDS: Insulin Lispro 100 Unit/ML 3 ML KwikPen SUBCUT SCH (03:59)
[2024-06-10] MEDS: EPINEPHrine 1 MG in Sodium Chloride 0.9% 100 ML IV SCH (04:42)
[2024-06-10] MEDS ORDERED: EPINEPHRINE IV SCH (05:30)
[2024-06-10] MEDS ORDERED: SODIUM CHLORIDE 0.9% IV SCH (05:30)
[2024-06-10 05:33] LABS: BASOPHILS PERCENT AUTO 0.1 % (0.0-1.0); HEMATOCRIT 32.5 % (42.0-52.0); HEMOGLOBIN 10.5 gm/dl (14.0-18.0); IMMATURE GRAN ABSOLUTE AUTO 0.19 K/mm3 (0.00-0.05); LYMPHOCYTES PERCENT AUTO 10.5 % (24.0-44.0); MEAN CORPUSCULAR HEMOGLOBIN 32.6 pg (28.0-32.0); MEAN CORPUSCULAR HGB CONC 32.3 g/dl (32.0-36.0); MEAN CORPUSCULAR VOLUME 100.9 fl (83.0-99.0); MEAN PLATELET VOLUME 9.8 fl (9.4-12.4); MONOCYTES ABSOLUTE AUTO 1.1 K/mm3 (0.0-0.8); MONOCYTES PERCENT AUTO 5.4 % (0.0-8.0); NEUTROPHILS ABSOLUTE AUTO 16.1 K/mm3 (1.8-7.7); PLATELET COUNT,PLT 204 K/mm3 (150-400); RED BLOOD CELL COUNT 3.22 M/mm3 (4.52-5.90); WHITE BLOOD CELL COUNT,WBC 19.41 K/mm3 (3.9-11.3)
[2024-06-10] MEDS: Phenylephrine 10 MG in Sodium Chloride 0.9% 99 ML IV SCH (05:46)
[2024-06-10 05:51] LABS: A/G RATIO 0.7 (1-2); ALBUMIN 2.6 g/dl (3.4-5.0); ANION GAP 19.4 (5-15); BILIRUBIN TOTAL 1.1 mg/dL (0.2-1.0); BUN/CREATININE RATIO 16.5 (14-18); CALCIUM 8.4 mg/dL (8.5-10.1); EST CRCL DRUG DOSING (CG) 27.49 mL/min; MAGNESIUM 1.7 mg/dL (1.8-2.4); PHOSPHORUS 4.8 mg/dL (2.6-4.7); POTASSIUM,K 3.4 mEq/L (3.5-5.1); PROTEIN TOTAL,TP 6.1 g/dl (6.4-8.2)
[2024-06-10] MEDS: EPINEPHRINE IV SCH (06:14)
[2024-06-10] MEDS: SODIUM CHLORIDE 0.9% IV SCH (06:14)
[2024-06-10] MEDS: Levothyroxine 50 MCG Tab PO SCH (06:15)
[2024-06-10] MEDS: Morphine 2 MG/ML SYRINGE IVPUSH PRN ×2 (06:54→18:38)
[2024-06-10] MEDS: Albuterol/Ipratropium 3.0-0.5 MG/3 ML Neb Soln NEB PRN (08:35)
[2024-06-10] MEDS: Sodium Chloride 0.9% 500 ML ONE (09:10)
[2024-06-10] MEDS: Aspirin 81 MG Tab.EC PO SCH (09:11)
[2024-06-10] MEDS: Rosuvastatin 10 MG Tab PO SCH (09:11)
[2024-06-10] MEDS: Heparin Sodium 5,000 Units/ML Vial IVPUSH ONE (09:25)
[2024-06-10] MEDS: Heparin Sodium/D5W 25,000 UNITS/500 ML BAG IV SCH (09:34)
[2024-06-10] MEDS: Acetaminophen/Codeine 300-30 MG Tab PO PRN (14:51)
[2024-06-10] MEDS: Scopalamine 1mg/3day Transdermal Patch TRDERM PRN (16:29)
[2024-06-10] MEDS: LORazepam 2 MG/ML SDV IVPUSH PRN (16:29)
[2024-06-11] MEDS: Morphine 2 MG/ML SYRINGE IVPUSH PRN (00:44)
[2024-06-11] MEDS: Glycopyrrolate 0.2 MG/ML SDV IVPUSH PRN (08:29)
[2024-06-11 14:02] VITALS: BP 95/54; PULSE 87
== END 2024-06-11 19:20 | disposition expired | DRG 951 ==
LOC: JD.ED 10:25 → JD.MS 19:11 → JD.ICU 21:23
PROVIDERS: ADMIT Student in an Organized Health Care Education/Training Program; ATTEND Student in an Organized Health Care Education/Training Program
PROC: 02HV33Z Insertion of Infusion Device into Superior Vena Cava, Percutaneous Approach (ICD-10-PCS; principal; 2024-06-10)
PROC: 3E033XZ Introduction of Vasopressor into Peripheral Vein, Percutaneous Approach (ICD-10-PCS; 2024-06-10)
PROC: 3E03329 Introduction of Other Anti-infective into Peripheral Vein, Percutaneous Approach (ICD-10-PCS; 2024-06-10)
DX: Z51.5 Encounter for palliative care (principal); A41.9 Sepsis, unspecified organism; I21.4 Non-ST elevation (NSTEMI) myocardial infarction; J96.01 Acute respiratory failure with hypoxia; I13.0 Hypertensive heart and chronic kidney disease with heart failure and stage 1 through stage 4 chronic kidney disease, or unspecified chronic kidney disease; I50.32 Chronic diastolic (congestive) heart failure; L03.116 Cellulitis of left lower limb; Z66 Do not resuscitate; I25.10 Atherosclerotic heart disease of native coronary artery without angina pectoris; K21.9 Gastro-esophageal reflux disease without esophagitis; J44.9 Chronic obstructive pulmonary disease, unspecified; Z96.659 Presence of unspecified artificial knee joint; M19.90 Unspecified osteoarthritis, unspecified site; E78.00 Pure hypercholesterolemia, unspecified; N18.9 Chronic kidney disease, unspecified; R33.9 Retention of urine, unspecified; E03.9 Hypothyroidism, unspecified; F32.A Depression, unspecified; R57.0 Cardiogenic shock; I25.2 Old myocardial infarction; Z86.16 Personal history of COVID-19; Z79.890 Hormone replacement therapy; Z91.041 Radiographic dye allergy status; Z79.82 Long term (current) use of aspirin; Z98.890 Other specified postprocedural states; Z79.899 Other long term (current) drug therapy; Z87.11 Personal history of peptic ulcer disease; Z95.1 Presence of aortocoronary bypass graft; Z79.01 Long term (current) use of anticoagulants; Z98.49 Cataract extraction status, unspecified eye; Z85.46 Personal history of malignant neoplasm of prostate; Z88.8 Allergy status to other drugs, medicaments and biological substances
CPT/HCPCS: 0241U; 36415; 36600; 71045; 71045-26; 74018; 74018-26; 80053; 81001; 82607; 82746; 82803; 82947; 83036; 83605; 83690; 83735; 83880; 84100; 84443; 84484; 85025; 85610; 85730; 86140; 87040; 87641; 93005; 93010; 94640; 99291; 99292; A9270-GY; C1751; C1758; J0171; J1596; J1644; J1720; J1815; J1940; J2060; J2250; J2270; J2371; J2543; J3490; J7030; J7040; J7620-GY